=== PATIENT | male | born 1955 | race Caucasian/White ===

== ENCOUNTER 2017-09-02 11:39 | Inpatient (IN) | payer OTHER ==
--- NOTE | 2017-09-02 12:39 | EDPHY ---
General Narrative: CHIEF COMPLAINT: Right hip pain, fall HISTORY OF PRESENT ILLNESS: Patient complains of pain in the right hip and groin. He states that he slipped and fell 5 days ago while in [place]. This was walking from 1 room to another with a step that he did not see. He landed directly on the right hip. Did not strike his head. Did not lose consciousness. His only complaint is right hip and groin pain. It has been constant. It is moderate to severe. Minimal at rest. Severe when he attempts to bear weight. He was seen there by a physician with no imaging performed. He was prescribed tramadol. This minimally helps his pain. He has no chest, back, abdominal or other extremity injuries. No previous orthopedic surgeries. No coronary artery disease, hypertension or diabetes. He does not take any daily medications. No other associated complaints or modifying factors. ESTABLISHED ORTHOPEDIST: None REVIEW OF SYSTEMS: Ten systems reviewed and are negative unless otherwise noted in the HPI PAST MEDICAL HISTORY: None PAST SURGICAL HISTORY: None SOCIAL HISTORY: Nonsmoker. Lives and works here independently. FAMILY HISTORY: Noncontributory EXAMINATION General Appearance: Alert, no distress HEENT: Normocephalic and atraumatic. Pupils equal round reactive Cardiovascular: Symmetric DP and PT pulses 2+. Brisk cap refill Neurological: A&O, sensory intact to the anterior thighs and dorsum of the feet symmetrically. Strength of the knees and ankles symmetric at 5/5. No foot drop on the right lower extremity. Skin: Warm and dry, no rash. No petechiae purpura. No laceration or puncture. Extremities: Tenderness of the right greater trochanter and inguinal canal. No tenderness of the right femur, knee or ankle. Range of motion of the right ankle is intact range of motion of the right hip not tested due to known fracture on x-ray. Neurovascular intact distal to the area of pain Psychiatric: Mood and affect normal DIFFERENTIAL DIAGNOSES: Including but not limited to fracture, dislocation, fracture dislocation, strain , sprain MDM: 12:35 p.m. Right subcapital from oral hip fracture that occurred 5 days ago while in [place]. The patient has been minimally ambulatory on this. He has significant pain but is neurovascular intact distally. There is some shortening and internal rotation. I have his Orthopedics to discuss. I have ordered laboratory studies and chest x-ray preoperative fashion. He is in no acute distress. He is NPO of solids as of 7:00 a.m.. He did have small amount of water 1 hr ago. Keep NPO status. Patient informed of this. 1:00 p.m. I have not yet been able to discuss with orthopedist. I have discussed with the hospitalist Dana Mac. The patient will admitted to Dr. Lucero. He is admitted in stable condition. I will follow up with orthopedist 1:10 p.m. Case discussed with orthopedic PA Nikki Paris. She is working with Dr. Oliveros. They will see the patient in the emergency department for consultation. 1:40 p.m. Patient re-evaluated. Still awaiting orthopedic consultation. His pain is increasing. I have ordered pain medication IV. Patient was sipping on water. I informed him again that he has not be eating or drinking anything. 2:20 p.m. Notified by Bree VELASCO. Patient is still complaining of pain. The morphine did not help. He will receive 1 mg of IV Dilaudid 2:40 p.m. Patient's pain is improving. 3:[address] Oliveros is at bedside with the patient 3:45 p.m. Patient has been evaluated by Orthopedics. Dr. Oliveros will be discussing with Dr. Faulkner to perform the surgery. Surgery is pending later this evening or 1st thing tomorrow. They will notify nursing staff of this. He requested the patient be kept NPO until further notice. SUPERVISION: Patient was independently examined, but I discussed the case with my secondary supervising physician Dr. Pham - Diagnostics Imaging Results: Imaging Impressions Hip X-Ray 09/02/17 11:55 Impression: Right femoral neck fracture with varus angulation. Chest X-Ray 09/02/17 12:34 Impression: No acute findings in the chest. - History Smoking Status: Never smoked - Objective Vital Signs: Initial Vital Signs Temperature (C) 98.2 F 09/02/17 11:42 Heart Rate 84 09/02/17 11:42 Respiratory Rate 16 09/02/17 11:42 Blood Pressure 118/77 09/02/17 11:42 O2 Sat (%) 97 09/02/17 11:42 O2 Delivery Mode Room Air Allergies/Adverse Reactions: No Known Allergies Allergy (Unverified 04/15/16 22:51) Home Medications: Medication Instructions Recorded traMADol [Ultram 50 mg (*)] 50 mg PO Q4HRS PRN 09/02/17 Laboratory Results: Laboratory Results 09/02/17 12:30 09/02/17 12:30 09/02/17 09/02/17 09/02/17 12:47 12:30 12:30 WBC 7.37 10^3/uL 10^3/uL (3.80-9.50) RBC 5.00 10^6/uL 10^6/uL (4.40-6.38) Hgb 15.3 g/dL g/dL (13.7-17.5) Hct 43.9 % % (40.0-51.0) MCV 87.8 fL fL (81.5-99.8) MCH 30.6 pg pg (27.9-34.1) MCHC 34.9 g/dL g/dL (32.4-36.7) RDW 11.8 % % (11.5-15.2) Plt Count 216 10^3/uL 10^3/uL (150-400) MPV 9.7 fL fL (8.7-11.7) Neut % (Auto) 79.4 % H % (39.3-74.2) Lymph % (Auto) 12.3 % L % (15.0-45.0) Gaines % (Auto) 7.5 % % (4.5-13.0) Eos % (Auto) 0.1 % L % (0.6-7.6) Baso % (Auto) 0.4 % % (0.3-1.7) Nucleat RBC Rel Count 0.0 % % (0.0-0.2) Absolute Neuts (auto) 5.85 10^3/uL 10^3/uL (1.70-6.50) Absolute Lymphs (auto) 0.91 10^3/uL L 10^3/uL (1.00-3.00) Absolute Monos (auto) 0.55 10^3/uL 10^3/uL (0.30-0.80) Absolute Eos (auto) 0.01 10^3/uL L 10^3/uL (0.03-0.40) Absolute Basos (auto) 0.03 10^3/uL 10^3/uL (0.02-0.10) Absolute Nucleated RBC 0.00 10^3/uL 10^3/uL (0-0.01) Immature Gran % 0.3 % % (0.0-1.1) Immature Gran # 0.02 10^3/uL 10^3/uL (0.00-0.10) PT 13.4 SEC SEC (12.0-15.0) INR 1.00 (0.83-1.16) APTT 28.6 SEC SEC (23.0-38.0) Sodium Potassium Chloride Carbon Dioxide Anion Gap BUN Creatinine Estimated GFR Glucose Calcium Patient ABO/Rh A POSITIVE 09/02/17 12:30 WBC RBC Hgb Hct MCV MCH MCHC RDW Plt Count MPV Neut % (Auto) Lymph % (Auto) Gaines % (Auto) Eos % (Auto) Baso % (Auto) Nucleat RBC Rel Count Absolute Neuts (auto) Absolute Lymphs (auto) Absolute Monos (auto) Absolute Eos (auto) Absolute Basos (auto) Absolute Nucleated RBC Immature Gran % Immature Gran # PT INR APTT Sodium 138 mEq/L mEq/L (135-145) Potassium 4.2 mEq/L mEq/L (3.5-5.2) Chloride 100 mEq/L mEq/L (97-110) Carbon Dioxide 26 mEq/l mEq/l (22-31) Anion Gap 12 mEq/L mEq/L (8-16) BUN 12 mg/dL mg/dL (7-23) Creatinine 0.8 mg/dL mg/dL (0.7-1.3) Estimated GFR > 60 Glucose 101 mg/dL H mg/dL (70-100) Calcium 9.1 mg/dL mg/dL (8.5-10.4) Patient ABO/Rh Medications Given: Discontinued Medications Hydromorphone HCl (Dilaudid) 1 mg IVP EDNOW ONE Stop: 09/02/17 14:26 Last Admin: 09/02/17 14:36 Dose: 1 mg Morphine Sulfate (Morphine) 4 mg IVP EDNOW ONE Stop: 09/02/17 13:49 Last Admin: 09/02/17 14:01 Dose: 4 mg Ondansetron HCl (Zofran) 4 mg IVP EDNOW ONE Stop: 09/02/17 13:49 Last Admin: 09/02/17 14:01 Dose: 4 mg Departure - Departure Disposition: [facility] Acute Clinical Impression: Fracture of femoral neck, right, closed Qualifiers: Encounter type: initial encounter Qualified Code(s): S72.001A - Fracture of unspecified part of neck of right femur, initial encounter for closed fracture Condition: Good
[2017-09-02 12:54] LABS: PLATELET COUNT 216 10^3/uL (150-400)
[2017-09-02 13:16] LABS: PROTIME(PATIENT) 13.4 SEC (12.0-15.0)
[2017-09-02] MEDS ORDERED: ONDANSETRON 4 MG/2 ML VIAL IVP ONE (13:48)
[2017-09-02] MEDS ORDERED: ONDANSETRON DISINTEGRATING 4 MG TAB PO PRN (14:20)
[2017-09-02] MEDS ORDERED: ACETAMINOPHEN 325 MG TAB PO PRN (14:20)
[2017-09-02] MEDS ORDERED: ONDANSETRON 4 MG/2 ML VIAL IVP PRN (14:20)
[2017-09-02] MEDS ORDERED: HYDROmorphONE/DILAUDID 1 MG/ML INJ IVP ONE (14:25)
[2017-09-02] MEDS ORDERED: DIAZEPAM 10 MG/2 ML SYR IVP PRN (15:07)
--- NOTE | 2017-09-02 15:37 | GHP ---
[f rep st] HISTORY AND PHYSICAL DATE OF ADMISSION: 09/02/2017 CHIEF COMPLAINT: Right hip pain. HISTORY OF PRESENT ILLNESS: A 62-year-old male with no significant past medical history who presents after a mechanical fall on a marble floor down a couple of stairs. Patient lost his footing and fel l sideways onto his right hip, had immediate pain that was severe enough he could not bear weight. Ra ther than presenting, patient obtained a set of crutches and ambulated over the course of the next 5 days with crutches, noticing that the pain was not improving and his ability to bear weight was not i mproving. Therefore, presented to the emergency department. In the ED denies any subjective fevers, chills. Denies chest pain, shortness of breath, dizziness, h eadache, vision changes, dysphagia, nausea, vomiting, abdominal discomfort, dysuria, hematuria, or lo wer extremity edema. PAST MEDICAL HISTORY: Insomnia. p.r.n. Ambien as an outpatient. SOCIAL HISTORY: Negative for tobacco. Occasional alcohol. No illicit drugs or marijuana. FAMILY HISTORY: Negative for heart disease. ADVANCED DIRECTIVES: Patient is a full COR, full tube. His would be his medical decision maker . REVIEW OF SYSTEMS: A 10-point review of systems is negative with the exception of that reported in t he HPI. PHYSICAL EXAMINATION: VITAL SIGNS: Blood pressure is 118/77, heart rate 84, respiratory rate 16, sa turating 97% on room air, 36.8. GENERAL: This is a healthy-appearing male in no acute distress. HE ENT: Exam is notable for dry mucous membranes. Eye exam is negative for any icterus. CARDIAC: Pat ient has regular rate and rhythm. PULMONARY: Clear to auscultation bilaterally. GASTROINTESTINAL: Positive bowel sounds. ABDOMEN: Soft and nontender in all 4 quadrants. MUSCULOSKELETAL: Is negat ruben for any lower extremity edema. SKIN: Exam is negative for any rashes. NEUROLOGIC: He is alert and oriented x3. PSYCHIATRIC: He is pleasant and cooperative on interview and examination. DATA: X-ray of the hip, which I personally reviewed and interpreted, shows a right femoral neck frac ture. LABORATORY: White count 7.3, hematocrit 43.9, platelets 216. Creatinine 0.8. ASSESSMENT AND PLAN: This is a 62-year-old male presenting after a mechanical fall with right hip pa in. 1. Acute right femoral neck fracture. The patient experienced a fall approximately 5 days ago. I vernon garcia treated the patient with IV pain medications. Will keep n.p.o. until orthopedic evaluation. Una roberts there will be intraoperative fixation today, will hold on Lovenox prophylaxis as well. The truman ent had a bad experience with IV morphine. Will use IV Dilaudid and p.r.n. IV Valium for muscle spas m. 2. Diet. N.p.o. for the operating room. 3. Prophylaxis holding until postoperative, place SCDs. DISPOSITION: I expect greater than 2 midnights as the patient requires orthopedic evaluation, intrao perative fixation and recovery time. I have discussed the case with the emergency room physician. Zehra felton will be triaged to the medical-surgical floor for care. /[id number]/MODL
[2017-09-02] MEDS ORDERED: NS 1,000 ML IV ONE (15:44)
--- NOTE | 2017-09-02 17:08 | SOAPPROG ---
SOAP Progress Note Assessment/Plan: Assessment: 5 day old Garden III R femoral neck fracture in active 62 yo M. Plan: Recommend ALEXIS. My partner, Marshall Faulkner MD will proceed with this surgery tomorrow. NPO p MN, reg diet now. TEDs/SCDs. Bedrest o/n, position of comfort, NWB RLE. PO analgesics, ice prn. Appreciate med consult assistance. See full dictated consult by ARLEY Villalta. 09/02/17 17:11 09/02/17 17:16 Subjective: Mechanical fall [address] [facility]. Unable to bear wt on RLE. No antecedent hip problems in active 62 yo M. Objective: Vital Signs Temp Pulse Resp BP Pulse Ox 36.8 C 81 18 122/74 H 97 09/02/17 11:42 09/02/17 16:00 09/02/17 16:00 09/02/17 16:00 09/02/17 16:00 09/01/17 09/02/17 09/03/17 05:59 05:59 05:59 Intake Total 1000 Balance 1000 PT 13.4 SEC (12.0-15.0) 09/02/17 12:30 INR 1.00 (0.83-1.16) 09/02/17 12:30 Shortened ER RLE. TTP R hip. Comp's soft. DNVI BLEs. Neg Temo's no calf TTP or edema. XR: Garden III R femoral neck fracture. ICD10 Worksheet Patient Problems: Problems Problem Status Onset Fracture of femoral neck, right, closed Acute
[2017-09-02] MEDS: HYDROCODONE/APAP 5/325 TAB PO PRN ×2 (17:15→21:20)
[2017-09-02] MEDS: NS 1,000 ML IV SCH ×2 (17:16→23:50)
[2017-09-02] MEDS ORDERED: ZOLPIDEM TARTRATE 5 MG TAB PO ONE (20:52)
--- NOTE | 2017-09-02 22:03 | GCON ---
[f rep st] CONSULTATION PREOPERATIVE HISTORY AND PHYSICAL AND ORTHOPEDIC CONSULT REPORT DATE OF CONSULTATION: 09/02/2017 CHIEF COMPLAINT: This 62-year-old male presented to the emergency department today with reports of right hip pain. The patient states that he was in [facility] 5 days ago when he fell down 2 steps sideways. He landed directly on the right hip with all of his weight. He was seen by the [facility] doctor at the time, who did not have any access to x-rays. Therefore, none were taken. The patient was in a wheelchair from the incident in [place] until he returned home. Since then, has been using crutches and has been nonweightbearing as any weight on the right leg has been too painful. He has been using Ultram, which was provided by the [facility] doctor, to manage his pain, but states that it really has not been helping that much. He has taken a couple of doses of anti-inflammatories here and there since he returned home as well. Since returning home, the patient has not been active and has been lying in bed, hoping the pain would improve. When it became clear that it was not, he presented to the emergency department today. The patient denies any previous injuries or pain to the right hip. He generally is quite active, working out at the gym, lifting weights, yoga classes and skiing. He has not been as active recently, but typically is and would like to get back to his usual activities. He denies any other injuries as a result of the fall. He does have a history of what he believes to be disc herniation at L5-S1 which is causing him minor pain at this time, but not significant. The patient denies any neck pain, head injury, upper extremity injury. He does complain of occasional numbness in the right small finger upon awakening, which improves and resolves throughout the day. He does not have any numbness or tingling in the lower extremities, no loss of bowel or bladder control. He denies abdominal pain, nausea, vomiting, diarrhea. He has not had any chest pain or shortness of breath. PAST MEDICAL HISTORY: The patient states that he is otherwise healthy. His mentioned that in the early , he had 2 episodes upon which he passed out and was thoroughly worked up by a labor relations director. No arrhythmia or heart issues were found. No history of seizures. The cause of these 2 episodes of syncope were not uncovered. The patient has not had any further episodes that are similar since that initial time. PAST SURGICAL HISTORY: The patient has a history of a deviated septum and has had nasal surgery years ago. He also had a hemorrhoid surgery 4 years ago. L forearm melanoma resection 20 yrs ago. He denies any other surgical history. MEDICATIONS: None. He does not take any [id number] supplements or vitamins. ALLERGIES: NKDA. SOCIAL HISTORY: He is and lives at home with his family in [place]. 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 However, currently is not working. The patient is a nonsmoker. FAMILY HISTORY: Father asthma, of iatrogenic overdose with morphine in doctor's office, by report. No other known history. REVIEW OF SYSTEMS: H/o melanoma, now in remission. 10-pt review performed, otherwise negative except as mentioned above without any other complaints, concerns or history. PHYSICAL EXAMINATION: GENERAL: The patient is alert, cooperative, resting comfortably in no acute distress. VITAL SIGNS: Stable. HEENT: The patient's head is atraumatic and normocephalic. Extraocular movements are intact. Nares are patent. Hearing is grossly normal. Oral mucosa are slightly dry. NECK: The patient moves the neck in all directions with a normal range of motion and no pain. He has no cervical spinous tenderness, deformities or step-offs. Lhermitte test is negative. CARDIOVASCULAR: Patient has regular S1, S2 with no murmur, rubs, or gallops. Distally, he has intact and equal DP and PT pulses with brisk capillary refill. No lower extremity edema. Upper extremity pulses are equal and brisk. Capillary refill is brisk to all digits as well. NEUROLOGICAL: Patient is alert and oriented. He has equal sensation to light touch in both lower extremities. He can wiggle all toes. Strength is 5/5 at the EHL as well as dorsiflexion, plantar flexion. Strength of the hip was not tested due to known fracture. SKIN: Warm and dry with no redness, warmth, rashes, lesions present. Intact. MUSCULOSKELETAL: The patient has no pain with movement of the upper extremities and has full range of motion in all joints in the upper extremities. Lower extremities reveal his right hip to be slightly externally rotated with RLE shortening. No ecchymosis, erythema, calor , edema or contusion or deformities are seen or palpated around the hip. His thighs and calves are soft with no tenderness, redness, warmth or pain upon palpation. DNVI BLE's. No calf TTP, edema, neg Temo's BLEs. PSYCHIATRIC: Patient answers questions appropriately with a normal mood and affect. A+Ox3. DIAGNOSTIC DATA: X-rays of the right hip were reviewed, which do show a subcapital fracture at the right femoral neck with displacement, Garden III. IMPRESSION: Right hip femoral neck fracture, Garden III and displaced, 5 days delayed-presentation. PLAN: The patient was seen in the emergency department by me and by Dr Oliveros , independently, where the history/physical information and orthopedic consult were completed. In the meantime, the patient should remain n.p.o. until surgical plan defined by Dr Oliveros. Upon further questioning, the patient states that he actually did have a smoothie consisting of fruit, almond butter and almond milk around 10 o'clock this morning and a glass of water around 11 o' clock or possibly noon. The patient was advised about the importance of staying n.p.o. from now on. Bedrest, NWB RLE, position of comfort. TEDs/SCDs. Avoid NSAIDs. PO analgesics prn with IVs prn BTP. ALEXIS with Dr Faulkner tomorrow. All questions answered, and they are very happy with the care received. /[id number]/MODL MTDD
[2017-09-02] MEDS ORDERED: ZOLPIDEM TARTRATE 5 MG TAB ONE (23:46)
[2017-09-02] MEDS: HYDROmorphONE/DILAUDID 1 MG/ML INJ IVP PRN (23:50)
[2017-09-03] MEDS: HYDROCODONE/APAP 5/325 TAB PO PRN ×3 (01:17→19:33)
[2017-09-03] MEDS: HYDROmorphONE/DILAUDID 1 MG/ML INJ IVP PRN ×13 (03:05→19:50)
[2017-09-03 05:19] LABS: PLATELET COUNT 212 10^3/uL (150-400)
[2017-09-03] MEDS ORDERED: oxyCODONE IR 5 MG TAB PO PRN (09:59)
--- NOTE | 2017-09-03 10:22 | SOAPPROG ---
SOAP Progress Note Assessment/Plan: Assessment/Plan: Garden III Right femoral neck fracture in an active 62 yo male. Plan is to go to OR with Dr. Faulkner at 2:30 this afternoon for R ALEIXS. Keep pt. NPO -continue BETTINA's/SCD's -position of comfort -NWB RLE -continue po analgesics, switched to oxycodone when needed for Tylenol dose is not exceeded. Subjective: States that pain is still not well controlled with current po pain meds. Pt. has had no N/T of BLE, no calf pain, swelling, redness, warmth. Pt. has had no fevers. Objective:Pt. resting comfortably, sitting up in bed, in NAD. Alert and oriented, in NAD. Pt. has equal and brisk pulses in BLE. No calf pain, swelling, redness, warmth bilaterally. Moves all toes without difficulty. Respirations easy and unlabored. Plan: 09/03/17 10:17 Objective: Vital Signs Temp Pulse Resp BP Pulse Ox 36.8 C 59 L 16 122/87 H 92 09/03/17 07:17 09/03/17 07:17 09/03/17 07:17 09/03/17 07:17 09/03/17 07:17 Laboratory Results 09/03/17 04:47 09/03/17 04:47 09/02/17 09/03/17 09/04/17 05:59 05:59 05:59 Intake Total 2950 Output Total 1350 Balance 1600 PT 13.4 SEC (12.0-15.0) 09/02/17 12:30 INR 1.00 (0.83-1.16) 09/02/17 12:30 ICD10 Worksheet Patient Problems: Problems Problem Status Onset Fracture of femoral neck, right, closed Acute
[2017-09-03] MEDS ORDERED: ceFAZolin 1 GM VIAL ONE ×2 (13:45→13:47)
[2017-09-03] MEDS ORDERED: ceFAZolin 1 GM/5 ML SYR ONE (13:50)
[2017-09-03] MEDS ORDERED: HYDROmorphONE/DILAUDID 1 MG/ML INJ ONE ×3 (14:05→19:19)
[2017-09-03] MEDS ORDERED: MIDAZOLAM 2 MG/2 ML VIAL IVP ONE (14:12)
--- NOTE | 2017-09-03 14:12 | PDANEPAE ---
ANE History of Present Illness 62 yo M w traumatic R hip fracture here for ORIF ANE Past Medical History - Cardiovascular History Hx Hypertension: No Hx Arrhythmias: No Hx Chest Pain: No Hx Coronary Artery / Peripheral Vascular Disease: No - Pulmonary History Hx COPD: No Hx Asthma/Reactive Airway Disease: No Hx Oxygen in Use at Home: No Hx Sleep Apnea: No Sleep Apnea Screening Result - Last Documented: Positive - Endocrine History Hx Diabetes: No ANE Review of Systems Review of Systems: - Exercise capacity Exercise capacity: >=4 METS ANE Patient History - Allergies Allergies/Adverse Reactions: No Known Allergies Allergy (Verified 09/03/17 13:10) - Home Medications Home Medications: traMADol [Ultram 50 mg (*)] 50 mg PO Q4HRS PRN 09/02/17 [Last Taken 09/02/17] - NPO status NPO Status: no food or drink >8 hours NPO Since - Liquids (Date): 09/02/17 NPO Since - Liquids (Time): 07:30 NPO Since - Solids (Date): 09/02/17 NPO Since - Solids (Time): 07:30 - Anes Hx Anes Hx: no prior problems - Smoking Hx Smoking Status: Never smoked - Alcohol Use Alcohol Use: Occasionally - Family Anes Hx Family Anes Hx: none ANE Labs/Vital Signs - Labs Result Diagrams: 09/03/17 04:47 09/03/17 04:47 - Vital Signs Blood Pressure: 122/87 Heart Rate: 59 Respiratory Rate: 16 O2 Sat (%): 96 Height: 182.88 cm Weight: 81.647 kg ANE Physical Exam - Airway Neck exam: FROM Mallampati Score: Class 2 Mouth exam: normal dental/mouth exam - Pulmonary Pulmonary: no respiratory distress, clear to auscultation - Cardiovascular Cardiovascular: regular rate and rhythym, no murmur, rub, or gallop - ASA Status ASA Status: I ANE Anesthesia Plan Anesthesia Plan: general endotracheal anesthesia
[2017-09-03] MEDS ORDERED: fentaNYL 100 MCG/2 ML INJ ONE ×4 (14:21→19:19)
[2017-09-03] MEDS ORDERED: PROPOFOL 200 MG/20 ML VIAL ONE (14:21)
[2017-09-03] MEDS ORDERED: LIDOCAINE 2% 100 MG/5 ML SYR ONE (14:22)
[2017-09-03] MEDS ORDERED: ROCURONIUM 50 MG/5 ML VIAL ONE (14:22)
[2017-09-03] MEDS ORDERED: ROPIVACAINE 0.2% 80 MG, EPINEPHrine 0.2 MG, KETOROLAC TROMETHAMINE 30 MG, morphINE 10 M... IU ONE ×2 (14:49→14:58)
[2017-09-03] MEDS ORDERED: ACETAMINOPHEN 325 MG TAB PO ONE (14:58)
[2017-09-03] MEDS ORDERED: TRANEXAMIC ACID 1,000 MG in NS 100 ML IV ONE (14:58)
[2017-09-03] MEDS ORDERED: FAMOTIDINE 20 MG TAB PO ONE (14:58)
[2017-09-03] MEDS ORDERED: ceFAZolin 2 GM/SWFI 2 GM/20 ML SYR IVP ONE (14:58)
[2017-09-03] MEDS ORDERED: DEXAMETHASONE 4 MG/ML VIAL IVP ONE (14:58)
--- NOTE | 2017-09-03 15:15 | ASMTCMCOM ---
CM Note CM Note Notes: Pt to OR today for hip fx after a fall. Pt independent w all ADLs/IADLs at baseline. Will need to assess needs after surgery and no therapies ordered at this time. Pt may need HHC. CM to follow. Date Signed: 09/03/2017 03:14 PM Electronically Signed By:HITESH Blake
--- NOTE | 2017-09-03 15:19 | HOSPPROG ---
Hospitalist Progress Note Assessment/Plan: 62y male with c/o hip pain. First encounter, chart reviewed. #Hip fx to OR today #Pain controlled #Dispo unclear await surgery PT/OT sergio PFEIFFER Cm Subjective: Still having some pain. Waiting for surgery. Objective: Vital Signs Temp Pulse Resp BP Pulse Ox 37.2 C 59 L 16 122/87 H 96 09/03/17 13:10 09/03/17 14:12 09/03/17 14:12 09/03/17 14:12 09/03/17 14:12 Laboratory Results 09/03/17 04:47 09/03/17 04:47 09/02/17 09/03/17 09/04/17 05:59 05:59 05:59 Intake Total 2950 Output Total 1350 500 Balance 1600 -500 PT 13.4 SEC (12.0-15.0) 09/02/17 12:30 INR 1.00 (0.83-1.16) 09/02/17 12:30 - Physical Exam Constitutional: no apparent distress, appears nourished, uncomfortable Eyes: PERRL, anicteric sclera, EOMI Ears, Nose, Mouth, Throat: moist mucous membranes, hearing normal, ears appear normal Cardiovascular: No JVD, No tachycardia, No edema Respiratory: no respiratory distress, no rales or rhonchi, reduced air movement Gastrointestinal: normoactive bowel sounds, No tenderness, No ascites Skin: warm, normal color, No erythema Musculoskeletal: pain with ROM, abnormal gait, generalized weakness Neurologic: AAOx3 Psychiatric: interacting appropriately, not anxious, not encephalopathic, thought process linear ICD10 Worksheet Patient Problems: Problems Problem Status Onset Fracture of femoral neck, right, closed Acute
[2017-09-03] MEDS ORDERED: HYDROmorphONE/DILAUDID 2 MG/ML INJ ONE (15:40)
[2017-09-03] MEDS ORDERED: ONDANSETRON 4 MG/2 ML VIAL IVP PRN ×2 (16:34→17:32)
[2017-09-03] MEDS ORDERED: PROMETHAZINE HCL 25 MG/ML INJ IVP PRN ×2 (16:34→17:32)
[2017-09-03] MEDS ORDERED: NALOXONE HCL 0.4 MG/ML INJ IVP PRN ×2 (16:34→19:57)
[2017-09-03] MEDS ORDERED: DIPHENOXYLATE/ATROPINE LOMOTIL 1 TAB PO PRN (17:32)
[2017-09-03] MEDS ORDERED: BISACODYL 10 MG SUPP PR PRN (17:32)
[2017-09-03] MEDS ORDERED: POLYETHYLENE GLYCOL 3350 17 GM PKT PO PRN (17:32)
[2017-09-03] MEDS ORDERED: LACTULOSE 20 GM/30 ML UDCUP PO PRN (17:32)
[2017-09-03] MEDS ORDERED: diphenhydrAMINE 25 MG CAP PO PRN (17:32)
[2017-09-03] MEDS ORDERED: ONDANSETRON DISINTEGRATING 4 MG TAB PO PRN (17:32)
[2017-09-03] MEDS ORDERED: MAGNESIUM HYDROXIDE 30 ML UDCUP PO PRN (17:32)
[2017-09-03] MEDS ORDERED: METOCLOPRAMIDE 10 MG/2 ML VIAL IVP PRN (17:32)
--- NOTE | 2017-09-03 17:34 | POSTANESTH ---
Post Anesthetic Evaluation Cardiovascular Status: Normal, Stable, Similar to Pre-Op Cond Respiratory Status: Normal, Stable, Similar to Pre-op Cond. Level of Consciousness/Mental Status: Can Participate in Eval, Alert and Oriented Pain Control: Adequate, Prn Tx Ordered Nausea/Vomiting Control: Adequate, Prn Tx Ordered Complications Possibly Related to Anesthesia: None Noted
[2017-09-03] MEDS: fentaNYL 100 MCG/2 ML INJ IVP PRN ×4 (17:39→19:21)
--- NOTE | 2017-09-03 17:51 | POSTOPPROG ---
Post Op Note Date of Operation: 09/03/17 Surgeon: Gavin Faulkner Commercial Analyst: Nikki Paris PA-C Anesthesia: GET(General Endotracheal) Pre-op Diagnosis: Right hip femoral neck fracture/Right ALEXIS Post-op Diagnosis: Right Hip ALEXIS Indication: Right hip femoral neck fracture Procedure: Right hip Total Arthroplasty Inf/Abcess present in the surg proc area at time of surgery?: No Depth: Deep Incisional (Fascial) EBL: 100-500 Specimen(s): Femoral Head sent to pathology to rule out pathological fracture
[2017-09-03] MEDS ORDERED: LR 1,000 ML IV SCH (18:00)
[2017-09-03] MEDS ORDERED: DIAZEPAM 10 MG/2 ML SYR ONE (18:56)
[2017-09-03] MEDS ORDERED: HYDROCODONE/APAP 5/325 TAB ONE (19:31)
[2017-09-03] MEDS ORDERED: HYDROmorphONE/DILAUDID 6 MG/30 ML PCA IV PRN (19:57)
[2017-09-03] MEDS: ACETAMINOPHEN 325 MG TAB PO SCH ×2 (20:35→23:50)
[2017-09-03] MEDS: FAMOTIDINE 20 MG TAB PO SCH (21:26)
[2017-09-03] MEDS: oxyCODONE IR 5 MG TAB PO PRN (21:26)
[2017-09-03] MEDS: SENNOSIDES/DOCUSATE SODIUM TAB PO SCH (21:26)
[2017-09-03] MEDS: ceFAZolin 2 GM/SWFI 2 GM/20 ML SYR IVP SCH (21:27)
[2017-09-03 21:57] LABS: INR 1.1 (0.83-1.16); PROTIME(PATIENT) 14.4 SEC (12.0-15.0)
[2017-09-03] MEDS ORDERED: ceFAZolin 2 GM/DEXTROSE 100 ML IV SCH (22:00)
[2017-09-03] MEDS: traMADol 50 MG TAB PO PRN (22:40)
[2017-09-04] MEDS: oxyCODONE IR 5 MG TAB PO PRN ×4 (00:31→11:13)
[2017-09-04] MEDS: ACETAMINOPHEN 325 MG TAB PO SCH ×5 (05:32→23:51)
[2017-09-04] MEDS: traMADol 50 MG TAB PO PRN ×3 (05:32→20:58)
[2017-09-04] MEDS: ceFAZolin 2 GM/SWFI 2 GM/20 ML SYR IVP SCH (05:33)
--- NOTE | 2017-09-04 07:49 | GOP ---
[f rep st] OPERATIVE REPORT DATE OF OPERATION: 09/03/2017 SURGEON: Gavin Faulkner MD TRACTOR TECHNICIAN: Nikki Paris PA-C. ANESTHESIA: General. PREOPERATIVE DIAGNOSIS: Right femoral neck fracture, Garden III. POSTOPERATIVE DIAGNOSIS: Right femoral neck fracture, Garden III. PROCEDURE PERFORMED: Right total hip arthroplasty. FINDINGS: DESCRIPTION OF PROCEDURE: Patient taken the operating room, administered general anesthesia, placed in the left lateral decubitus position. Had his right hip and lower extremity prepped and draped in n ormal sterile fashion. A posterolateral incision was made through dermal subcutaneous tissues. Sharp dissection performed down to the IT band. This was split longitudinally, extended up over the greater trochanter into the gluteal fascia. Charnley retractors put in position. The hip was internally rota rogelio, bringing the external rotators under tension. The piriformis was taken down with a cautery and t agged with #2 Ethibond suture. Posterior capsule was incised. The hip fracture was inspected. The head was rotated into position and subsequently dislocated. The n shruthi segment was then freshened up with a new cut approximately a centimeter above the lesser trochant er. The acetabulum was then exposed. Retractors were placed. The tissue was removed from the cotyloid notch. The labral tissue was excised. Reaming commenced with a size 49 and extended up to a size 58, initially in 2 mm increments, last in 1 mm increment. The trial cup was put in position with a trial liner. The box osteotome was then used to remove bone from the greater trochanteric region after exp osing the proximal femur. Starting reamer was placed down through the femoral canal manually. Motoriz ed reaming commenced with a size 7 and extended up to a size 12. The broaching began with a size 8 an d extended up to a size 12. The 12 seemed to fit appropriately. Intraoperative films were taken with a standard neck length after reducing the head and neck segment. We felt we had appropriate leg lengt hs. The hip was then re-dislocated. The trials were brought out. Thorough lavage performed of all surface s. The cocktail solution was infiltrated deeply. The real cup was impacted into position, followed by the real liner. The real stem was impacted into position, followed by drying of the trunnion and imp acting the Biolox ceramic head. Implants utilized were the Tritanium 58 mm Alpha Code F acetabular sh [facility]. The Trident X3 0-degree polyethylene insert, 36 mm inner diameter, Alpha Code F. The Biolox Delt a ceramic C taper femoral head, 0 neck length. The Secure Fit Max 132 degree neck angle hip stem, siz e 12, C taper trunnion, 40 mm neck length. A drain was placed deeply. The external rotators were repaired back down to drill holes in the greate r trochanter after repairing the capsule. Both these layers were closed with a #2 Ethibond suture. Th e IT band was closed with [id number] #1 Vicryl suture followed by closure of subcutaneous tissue with 2-0 Vicryl suture, followed by closure of the dermis with lorene. Sterile compression dressing applied. The patient had abduction pillow placed. He tolerated the procedure well, and was transferr ed back to recovery in stable condition. No operative complications. SECOND ASSIST: LILLIE Gaspar. COMPLICATIONS: None /[id number]/MODL
[2017-09-04] MEDS: SENNOSIDES/DOCUSATE SODIUM TAB PO SCH ×2 (07:54→21:00)
[2017-09-04] MEDS: FAMOTIDINE 20 MG TAB PO SCH ×2 (07:54→21:00)
[2017-09-04] MEDS: KETOROLAC 30 MG/1 ML SDV IVP PRN ×3 (11:56→23:52)
[2017-09-04] MEDS: DIAZEPAM 2 MG TAB PO PRN ×2 (11:56→23:51)
[2017-09-04] MEDS ORDERED: METHOCARBAMOL 500 MG TAB PO ONE (12:17)
--- NOTE | 2017-09-04 14:02 | HOSPPROG ---
Hospitalist Progress Note Assessment/Plan: 62y male with c/o hip pain. #Hip fx POD #1 RTHA #Pain not controlled change pain meds add robaxin for spasm #Dispo unclear PT/OT eval say [facility] CM Subjective: Having significant pain. Feels overwhelmed. Objective: Vital Signs Temp Pulse Resp BP Pulse Ox 36.7 C 68 16 128/90 H 100 09/04/17 11:39 09/04/17 11:39 09/04/17 11:39 09/04/17 11:39 09/04/17 11:39 Laboratory Results 09/04/17 04:31 09/03/17 04:47 09/03/17 09/04/17 09/05/17 05:59 05:59 05:59 Intake Total 2950 3801 500 Output Total 1350 1685 700 Balance 1600 2116 -200 PT 14.4 SEC (12.0-15.0) 09/03/17 21:30 INR 1.10 (0.83-1.16) 09/03/17 21:30 - Physical Exam Constitutional: appears nourished, uncomfortable, No chronically ill appearing Eyes: PERRL, anicteric sclera, EOMI Ears, Nose, Mouth, Throat: moist mucous membranes, hearing normal, ears appear normal Cardiovascular: regular rate and rhythym, No JVD, No edema Respiratory: no respiratory distress, no rales or rhonchi, reduced air movement Gastrointestinal: normoactive bowel sounds, No tenderness, No ascites Skin: warm, normal color, No erythema Musculoskeletal: pain with ROM, muscular tenderness, generalized weakness Neurologic: AAOx3 Psychiatric: interacting appropriately, not anxious, not encephalopathic, thought process linear ICD10 Worksheet Patient Problems: Problems Problem Status Onset Fracture of femoral neck, right, closed Acute
[2017-09-04] MEDS: oxyCODONE IR 5 MG TAB PO SCH ×4 (15:19→22:04)
[2017-09-04] MEDS: METHOCARBAMOL 500 MG TAB PO SCH ×2 (15:50→21:00)
[2017-09-04] MEDS: WARFARIN SODIUM 5 MG TAB PO SCH (15:57)
--- NOTE | 2017-09-04 16:02 | SOAPPROG ---
SOAP Progress Note Assessment/Plan: Assessment/Plan: R hip femoral neck fracture s/p R ALEXIS POD#1 - Continue pain management, encourage PO - Posterior hip precautions with abduction pillow - PT/OT - Partial WB RLE, 50# maximum - Ice to the R hip - Dressing change and drain removal tomorrow - Warfarin for VTE chemoprophylaxis - SCDs/TEDs for mechanical prophylaxis - Discharge planning 09/04/17 16:00 09/04/17 16:02 09/04/17 16:34 Subjective: Pt states he is ambulating well, but pain increased after PT today. Pt denies fever, chills, chest pain, SOB, abdominal pain, N/V/D, numbness, tingling and calf pain. Objective: Vital Signs Temp Pulse Resp BP Pulse Ox 36.9 C 77 16 139/98 H 94 09/04/17 15:51 09/04/17 15:51 09/04/17 15:51 09/04/17 15:51 09/04/17 15:51 Laboratory Results 09/04/17 04:31 09/03/17 04:47 09/03/17 09/04/17 09/05/17 05:59 05:59 05:59 Intake Total 2950 3801 1400 Output Total 1350 1685 700 Balance 1600 2116 700 PT 14.4 SEC (12.0-15.0) 09/03/17 21:30 INR 1.10 (0.83-1.16) 09/03/17 21:30 Physical Exam - Physical Exam General Appearance: alert, no apparent distress Cardiac/Chest: normal peripheral pulses Skin: normal color, warm/dry, other (dressing c/d/i without surrounding erythema or calor) Extremities: normal inspection, normal capillary refill, swelling (localized to R hip), other (Drain intact R hip), No pedal edema, No calf tenderness, No Temo 's sign Neuro/Psych: no motor/sensory deficits, alert, normal mood/affect ICD10 Worksheet Patient Problems: Problems Problem Status Onset Fracture of femoral neck, right, closed Acute
[2017-09-04] MEDS: HYDROCODONE/APAP 5/325 TAB PO PRN (17:20)
[2017-09-04] MEDS: TEMAZEPAM 15 MG CAP PO PRN (21:00)
[2017-09-05] MEDS: traMADol 50 MG TAB PO PRN ×4 (03:02→18:28)
[2017-09-05] MEDS: oxyCODONE IR 5 MG TAB PO SCH ×7 (03:03→20:49)
[2017-09-05 05:25] LABS: INR 1.37 (0.83-1.16)
[2017-09-05] MEDS: KETOROLAC 30 MG/1 ML SDV IVP PRN ×3 (05:54→20:43)
[2017-09-05] MEDS: ACETAMINOPHEN 325 MG TAB PO SCH ×3 (05:55→16:52)
[2017-09-05] MEDS: FAMOTIDINE 20 MG TAB PO SCH ×2 (08:20→20:44)
[2017-09-05] MEDS: METHOCARBAMOL 500 MG TAB PO SCH ×3 (08:20→20:44)
--- NOTE | 2017-09-05 09:18 | SOAPPROG ---
SOAP Progress Note Assessment/Plan: Assessment: S/P Right total hip for displaced subcapital femoral neck fx, doing well Plan: Assess on stairs and if doing well can discharge home. Note patient is hesitant to go considering weather 09/05/17 09:15 Subjective: Pain under better control but concerned about being able to maneuver steps. Objective: Vital Signs Temp Pulse Resp BP Pulse Ox 36.6 C 83 16 138/95 H 94 09/05/17 08:00 09/05/17 08:00 09/05/17 08:00 09/05/17 08:00 09/05/17 08:00 Laboratory Results 09/04/17 04:31 09/03/17 04:47 09/04/17 09/05/17 09/06/17 05:59 05:59 05:59 Intake Total 3801 3400 Output Total 1685 1550 200 Balance 2116 1850 -200 PT 17.0 SEC (12.0-15.0) H 09/05/17 04:56 INR 1.37 (0.83-1.16) H 09/05/17 04:56 Incision looks good drrain pulled and new dressing applied ICD10 Worksheet Patient Problems: Problems Problem Status Onset Fracture of femoral neck, right, closed Acute
[2017-09-05] MEDS: SENNOSIDES/DOCUSATE SODIUM TAB PO SCH ×2 (10:06→20:44)
--- NOTE | 2017-09-05 12:18 | HOSPPROG ---
Hospitalist Progress Note Assessment/Plan: 62y male with c/o hip pain. #Hip fx POD #2 RTHA #Pain controlled today robaxin for spasm #Dispo likely home in am with [facility] PT/OT eval say [facility] CM Subjective: Feeling better today. Pain controlled. Objective: Vital Signs Temp Pulse Resp BP Pulse Ox 36.7 C 73 18 138/97 H 92 09/05/17 11:52 09/05/17 11:52 09/05/17 11:52 09/05/17 11:52 09/05/17 11:52 Laboratory Results 09/04/17 04:31 09/03/17 04:47 09/04/17 09/05/17 09/06/17 05:59 05:59 05:59 Intake Total 3801 3400 650 Output Total 1685 1550 925 Balance 2116 1850 -275 PT 17.0 SEC (12.0-15.0) H 09/05/17 04:56 INR 1.37 (0.83-1.16) H 09/05/17 04:56 - Physical Exam Constitutional: no apparent distress, appears nourished Eyes: PERRL, anicteric sclera Ears, Nose, Mouth, Throat: moist mucous membranes, hearing normal Cardiovascular: No JVD, No edema Respiratory: no respiratory distress, reduced air movement Gastrointestinal: No tenderness, No ascites Skin: warm, normal color Musculoskeletal: pain with ROM, generalized weakness Neurologic: AAOx3 Psychiatric: interacting appropriately, not anxious, not encephalopathic ICD10 Worksheet Patient Problems: Problems Problem Status Onset Fracture of femoral neck, right, closed Acute
[2017-09-05] MEDS: WARFARIN SODIUM 5 MG TAB PO SCH (16:53)
[2017-09-05] MEDS: TEMAZEPAM 15 MG CAP PO PRN (20:44)
[2017-09-05] MEDS: DIAZEPAM 2 MG TAB PO PRN (20:44)
[2017-09-06] MEDS: ACETAMINOPHEN 325 MG TAB PO SCH ×3 (00:29→12:27)
[2017-09-06] MEDS: traMADol 50 MG TAB PO PRN ×3 (00:29→12:27)
[2017-09-06] MEDS: oxyCODONE IR 5 MG TAB PO SCH ×5 (01:12→12:29)
[2017-09-06 05:36] LABS: INR 1.88 (0.83-1.16); PROTIME(PATIENT) 21.7 SEC (12.0-15.0)
[2017-09-06 07:32] VITALS: BP 155/105; PULSE 76; RESP 16; TEMP 98.1; O2SAT 95
[2017-09-06] MEDS: SENNOSIDES/DOCUSATE SODIUM TAB PO SCH (07:44)
[2017-09-06] MEDS: METHOCARBAMOL 500 MG TAB PO SCH (07:45)
[2017-09-06] MEDS: FAMOTIDINE 20 MG TAB PO SCH (07:47)
--- NOTE | 2017-09-06 09:57 | SOAPPROG ---
SOAP Progress Note Assessment/Plan: Assessment: status post right hip subcapital femoral neck fracture fixed with a total hip arthroplasty Continue hip precautions with abduction pillow Partial weight bearing on the left lower extremity, 50 pound maximum Continue warfarin daily Physical therapy Keep incision site clean, dry and covered for bathing; no soaking Pain medicine as needed Ortho stable and okay for discharge. Subjective: Patient is status post right total hip arthroplasty for a subcapital femoral neck fracture. He states he is doing well and he has minimal pain. Ortho stable. Objective: Vital Signs Temp Pulse Resp BP Pulse Ox 36.7 C 76 16 155/105 H 95 09/06/17 07:31 09/06/17 07:31 09/06/17 07:31 09/06/17 07:31 09/06/17 07:31 Laboratory Results 09/04/17 04:31 09/03/17 04:47 09/05/17 09/06/17 09/07/17 05:59 05:59 05:59 Intake Total 3400 1150 400 Output Total 1550 1150 Balance 1850 0 400 PT 21.7 SEC (12.0-15.0) H 09/06/17 04:46 INR 1.88 (0.83-1.16) H 09/06/17 04:46 Physical exam of the right hip: incision is healing well, no erythema no active drainage. Dressing clean, dry and intact. Normal sensation to light touch in the RLE. Distal pulse present in the RLE. ICD10 Worksheet Patient Problems: Problems Problem Status Onset Fracture of femoral neck, right, closed Acute
--- NOTE | 2017-09-06 13:26 | PDIAF ---
- Diagnosis Diagnosis: hip fx Code Status: Full Code - Medication Management Discharge Medications: Medications to Continue on Transfer traMADol [Ultram 50 mg (*)] 50 mg PO Q4HRS PRN 09/02/17 [Last Taken 09/02/17] Acetaminophen [Tylenol 325mg (*)] 650 mg PO Q6HRS tab 09/06/17 [Last Taken Unknown] Methocarbamol [Robaxin 500 mg (*)] 1,000 mg PO TID #21 tab 09/06/17 [Last Taken Unknown] Polyethylene Glycol 3350 [Miralax 17 gm (*)] 17 gm PO DAILY PRN pkt 09/06/17 [ Last Taken Unknown] Sennosides/Docusate Sodium [Senokot-S] 1 - 2 tab PO BID tab 09/06/17 [Last Taken Unknown] Warfarin Sodium [Coumadin 5MG (*)] 5 mg PO DAILY AT 4PM #10 tab 09/06/17 [Last Taken Unknown] oxyCODONE IR [Oxycodone Ir (*)] 10 mg PO Q3HRS #40 tab 09/06/17 [Last Taken Unknown] Discharge Medications: Refer to the Discharge Home Medication list for PRN reason. PICC Care - Routine: N/A - Orders Services needed: Home Care, Registered Nurse, Physical Therapy, Occupational Therapy Home Care Face to Face: I certify that this patient was under my care and that I had the required [id number] encounter meeting the encounter requirements on the discharge day. My findings support the fact that the patient is homebound as defined in Home Care Face to Face Continued: CMS Chapter 7 Medicare Benefits Manual 30.1.1 , The condition of the patient is such that there exists a normal inability to leave home and consequently, leaving home would require a considerable and taxing effort. Diet Recommendation: no restrictions on diet Diet Texture: Regular Texture Diet - Labs/Radiology PT/INR Date: 09/08/17 - Follow Up Care Current Providers and Referrals: Gavin Faulkner MD [Medical Doctor] - (please call to make an appointment to see Dr. Faulkner 10-14 days from day of surgery. )
--- NOTE | 2017-09-06 14:57 | ASMTCMCOM ---
CM Note CM Note Notes: PT recommending HHC. OT recommending home no needs. Met with pt & RN to discuss. RN recommedning HHC RN to assist pt with PT/INR lab draws & therapeutic pain management. Pt agreeable; [facility] chosen. Address & phone number verified. Referral faxed to [facility]. Spoke with Nicho, at [facility]; willing to accept. Pt, CLOSING COORDINATOR & RN updated. No other needs at this time. Date Signed: 09/06/2017 02:57 PM Electronically Signed By:Jessica Everett RN
--- NOTE | 2017-09-06 16:53 | GDS ---
[f rep st] DISCHARGE SUMMARY DISCHARGE DIAGNOSES: 1. Right hip fracture. 2. Pain. CONSULTATIONS: Orthopedics. STUDIES AND PROCEDURES DONE: Total hip arthroplasty. PHYSICAL EXAM: GENERAL: The patient is alert. VITAL SIGNS: Afebrile at 36.7, pulse is 76, respira tory rate 16, blood pressure is 155/105. He is saturating 95% on room air. I have seen and evaluate d the patient on the day of discharge. HOSPITAL COURSE: The patient is a 62-year-old male who presented to the emergency room with complain ts of hip pain. He was evaluated and diagnosed with: 1. Right hip fracture. During this hospitalization, he received a consultation from Dr. Faulkner of [facility]. A right-sided total hip arthroplasty was performed. The patient is in the postoperative setting. He is doing well. Physical Therapy and Occupational Therapy have recommended home health c are and this will be ordered for him at the time of disposition. 2. Pain. Pain medications have been ordered prior to his disposition. His pain is well controlled currently at this time. 3. Hypertension. This is in the hospital setting. No medications have been initiated prior to disp osition. He will follow with his primary care physician. 4. Deep venous thrombosis prophylaxis. The patient will continue on Coumadin in the outpatient sett ing. DISPOSITION: The patient will be discharged home with home health care including PT, OT and RN. The re are no pending studies. DISCHARGE MEDICATIONS: Please refer to EMR form. I have provided prescriptions for the patient for tramadol, Coumadin, oxycodone IR, Robaxin. FOLLOWUP: I have instructed him to follow up with Dr. Faulkner, and to continue his hip precautions. H e is in agreement with this plan. There are no pending studies. I have spent greater than 35 minutes in the care, coordination, and management of the patient's dispo sition. /[id number]/MODL
--- NOTE | 2017-09-07 08:38 | ASDISCHSUM ---
Discharge Information Plan Status:Home with Home Health Medically Cleared to Leave: Discharge Date:09/06/2017 03:40 PM CM D/C Disposition:Home Health Service ADT D/C Disposition:Home Health Service Projected Discharge Date:09/06/2017 11:00 AM Transportation at D/C:Family Discharge Delay Reason: Follow-Up Date:09/06/2017 11:00 AM Discharge Slot: Final Diagnosis: Placement Information Referral Type:*Home Health Care Services Referral ID:[id number] Provider Name:[facility] Address 1[address] Address 2: City:[place] Selection Factors: State:[place] Patient Contact Information Contact Name:ALEXYS Relationship: Address:[address] Work Phone: City:[place] Alternate Phone: State/Zip Code:[place] [address] Email: Financial Information Financial Class:HMO and PPO Plans Primary Plan Desc:H[employer] Primary Plan Number:[id number] Secondary Plan Desc: Secondary Plan Number: Assessment Information [facility] CM Progress Note CM Note CM Note Notes: Pt to OR today for hip fx after a fall. Pt independent w all ADLs/IADLs at baseline. Will need to assess needs after surgery and no therapies ordered at this time. Pt may need HHC. CM to follow. Date Signed: 09/03/2017 03:14 PM Electronically Signed By:HITESH Blake [facility] CM Progress Note CM Note CM Note Notes: PT recommending HHC. OT recommending home no needs. Met with pt & RN to discuss. RN recommedning [facility] RN to assist pt with PT/INR lab draws & therapeutic pain management. Pt agreeable; [facility] chosen. Address & phone number verified. Referral faxed to [facility]. Spoke with Nicho at [facility]; willing to accept. Pt, OUTPATIENT DIETITIAN & RN updated. No other needs at this time. Date Signed: 09/06/2017 02:57 PM Electronically Signed By:Jessica Everett RN Intervention Information
== END 2017-09-06 15:40 | disposition home health service (06) | DRG 470 ==
LOC: F3N 16:49
PROVIDERS: ADMIT Hospitalist; ATTEND Internal Medicine
PROC: 0SR902Z Replacement of Right Hip Joint with Metal on Polyethylene Synthetic Substitute, Open Approach (ICD-10-PCS; principal; 2017-09-03 14:30)
DX: S72.011A Unspecified intracapsular fracture of right femur, initial encounter for closed fracture (principal); W10.8XXA Fall (on) (from) other stairs and steps, initial encounter; R03.0 Elevated blood-pressure reading, without diagnosis of hypertension; Z85.820 Personal history of malignant melanoma of skin
CPT/HCPCS: 96374; 97110-GP; 97116-GP; 97161-GP; 97165-GO; 97530-GP; 97535-GO; J0171; J0690; J1170; J1885; J2001; J2250; J2405; J2704; J2765; J2795; J3010

== ENCOUNTER → 2018-01-14 | Outpatient (CLI) | payer OTHER | LOC: CIMAGING 10:36 | PROVIDERS: ATTEND Physician Assistant Surgical | DX: M51.36 Other intervertebral disc degeneration, lumbar region (principal); M50.30 Other cervical disc degeneration, unspecified cervical region | CPT/HCPCS: 72100-PO ==

== ENCOUNTER 2018-02-24 07:15 | Inpatient (IN) | payer OTHER ==
[2018-05-26] MEDS ORDERED: TRANEXAMIC ACID 1,000 MG in NS 100 ML IV ONE (06:00)
[2018-05-26] MEDS ORDERED: GABAPENTIN 300 MG CAP PO ONE (07:13)
[2018-05-26] MEDS ORDERED: morphINE PF 0.2 MG in SYRINGE INTRATHECAL 1 SYR IT ONE (07:13)
[2018-05-26] MEDS ORDERED: fentaNYL 50 MCG in SYRINGE INTRATHECAL 1 SYR IT ONE (07:13)
[2018-05-26] MEDS ORDERED: ACETAMINOPHEN 500 MG TAB PO ONE (07:13)
[2018-05-26] MEDS ORDERED: ceFAZolin 2 GM/DEXTROSE 100 ML IV ONE (07:13)
[2018-05-26] MEDS ORDERED: LIDOCAINE 1% 2 ML INJ ID PRN (07:14)
[2018-05-26] MEDS ORDERED: LR 1,000 ML IV ONE (07:14)
--- NOTE | 2018-05-26 07:21 | PDHPUP ---
History & Physical Update H&P update statement: This history and physical update is based on an assessment of the patient which was completed after admission or registration (within 24 hours), but prior to the surgery/procedure. H&P update: H&P reviewed & patient examined, no change in patient's condition since H&P completed
[2018-05-26] MEDS ORDERED: BUPIVACAINE 0.25% 30 ML SDV ONE (09:13)
[2018-05-26] MEDS ORDERED: CHLORHEXIDINE GLUC HIBICLENS 118 ML BTL TP ONE (09:13)
[2018-05-26] MEDS ORDERED: EPINEPHrine 1 MG/ML INJ ONE (09:13)
[2018-05-26] MEDS ORDERED: THROMBIN (BOVINE) 5,000 UNIT VIAL TP ONE (09:13)
[2018-05-26] MEDS ORDERED: CITRATE DEXTROSE SOLN 500 ML BAG ONE (09:13)
[2018-05-26] MEDS ORDERED: BACITRACIN 50,000 UNITS/10 ML SYR IRR ONE (09:14)
[2018-05-26] MEDS ORDERED: MIDAZOLAM 2 MG/2 ML VIAL IVP ONE (09:14)
--- NOTE | 2018-05-26 09:15 | PDANEPAE ---
ANE Past Medical History - Cardiovascular History Hx Hypertension: No Hx Arrhythmias: No Hx Chest Pain: No Hx Coronary Artery / Peripheral Vascular Disease: No Hx CHF / Valvular Disease: No Hx Palpitations: No Cardiovascular History Comment: SYNCOPE ISSUE 20 PLUS YRS AGO. WORK UP NEG - Pulmonary History Hx COPD: No Hx Asthma/Reactive Airway Disease: No Hx Recent Upper Respiratory Infection: No Hx Oxygen in Use at Home: No Hx Sleep Apnea: No Sleep Apnea Screening Result - Last Documented: Positive - Neurologic History Hx Cerebrovascular Accident: No Hx Seizures: No Hx Dementia: No - Endocrine History Hx Diabetes: No Hypothyroid: No Hyperthyroid: No Obesity: no - Renal History Hx Renal Disorders: No - Liver History Hx Hepatic Disorders: No - Neurological & Psychiatric Hx Hx Neurological and Psychiatric Disorders: No - Cancer History Hx Cancer: Yes Cancer History Comment: MELANOMA - Congenital Disorder History Hx Congenital Disorders: No - GI History Hx Gastrointestinal Disorders: No - Other Health History Other Health History: DJD - Chronic Pain History Chronic Pain: Yes (LUMBAR REGION) - Surgical History Prior Surgeries: RT TOTAL HIP 08/2017. NASAL. HEMORRHOIDS. SKIN MELANOMA ANE Review of Systems Review of Systems: - Exercise capacity METS (RN): 4 METS ANE Patient History - Allergies Allergies/Adverse Reactions: No Known Drug Allergies Allergy (Unknown, Verified 05/26/18 07:21) - Home Medications Home Medications: Methocarbamol [Robaxin 500 mg (*)] 500 mg PO DAILY PRN 05/20/18 [Last Taken Unknown] Zolpidem Tartrate [Ambien 5MG (*)] 5 mg PO HS PRN 05/20/18 [Last Taken Unknown] oxyCODONE IR [Oxycodone Ir (*)] 5 mg PO TID PRN 05/20/18 [Last Taken Unknown] - NPO status NPO Since - Liquids (Date): 05/25/18 NPO Since - Liquids (Time): 22:00 NPO Since - Solids (Date): 05/25/18 NPO Since - Solids (Time): 20:00 - Smoking Hx Smoking Status: Never smoked ANE Labs/Vital Signs - Vital Signs Blood Pressure: 131/100 Heart Rate: 75 Respiratory Rate: 16 O2 Sat (%): 96 Height: 182.88 cm Weight: 79.379 kg ANE Physical Exam - Airway Neck exam: FROM Mallampati Score: Class 2 Mouth exam: normal dental/mouth exam - Pulmonary Pulmonary: no respiratory distress - Cardiovascular Cardiovascular: regular rate and rhythym - ASA Status ASA Status: II ANE Anesthesia Plan Anesthesia Plan: general endotracheal anesthesia
[2018-05-26] MEDS ORDERED: DEXAMETHASONE 4 MG/ML VIAL ONE (09:24)
[2018-05-26] MEDS ORDERED: fentaNYL 250 MCG/5 ML INJ ONE (09:24)
[2018-05-26] MEDS ORDERED: ONDANSETRON 4 MG/2 ML VIAL ONE (09:24)
[2018-05-26] MEDS ORDERED: REMIFENTANIL HCL 1 MG VIAL ONE (09:24)
[2018-05-26] MEDS ORDERED: ROCURONIUM 100 MG/10 ML VIAL ONE (09:24)
[2018-05-26] MEDS ORDERED: PROPOFOL/EMULSION 500 MG/50 ML BOTTLE IV ONE (09:24)
[2018-05-26] MEDS ORDERED: PROPOFOL 200 MG/20 ML VIAL ONE ×2 (09:24→10:07)
[2018-05-26] MEDS ORDERED: LIDOCAINE 2% 2 ML INJ ONE (09:25)
[2018-05-26] MEDS ORDERED: PHENYLEPHRINE HCL 100 MCG/ML SYR ONE ×2 (10:59→12:57)
[2018-05-26] MEDS ORDERED: fentaNYL 100 MCG/2 ML INJ ONE (11:56)
[2018-05-26] MEDS ORDERED: ceFAZolin 1 GM VIAL ONE (12:58)
[2018-05-26] MEDS ORDERED: HEPARIN 10,000 UNIT/10 ML MDV (1,000 UNIT/ML) ONE (12:58)
[2018-05-26] MEDS ORDERED: VASOPRESSIN 20 UNIT/ML VIAL ONE (12:58)
[2018-05-26] MEDS ORDERED: ePHEDrine SULFATE 25 MG/5 ML SYR ONE (12:58)
[2018-05-26] MEDS ORDERED: LACTULOSE 20 GM/30 ML UDCUP PO PRN (13:11)
[2018-05-26] MEDS ORDERED: ONDANSETRON 4 MG/2 ML VIAL IVP PRN ×2 (13:11→13:44)
[2018-05-26] MEDS ORDERED: MAGNESIUM HYDROXIDE 30 ML UDCUP PO PRN (13:11)
[2018-05-26] MEDS ORDERED: oxyCODONE IR 5 MG TAB PO PRN (13:11)
[2018-05-26] MEDS ORDERED: ONDANSETRON DISINTEGRATING 4 MG TAB PO PRN (13:11)
[2018-05-26] MEDS ORDERED: BISACODYL 10 MG SUPP PR PRN (13:11)
[2018-05-26] MEDS ORDERED: morphINE PCA 30 MG/30 ML PCA IV PRN (13:11)
[2018-05-26] MEDS ORDERED: NALOXONE HCL 0.4 MG/ML INJ IVP PRN ×2 (13:11→13:44)
[2018-05-26] MEDS ORDERED: NS 1,000 ML IV SCH (13:15)
--- NOTE | 2018-05-26 13:18 | GOP ---
DATE OF OPERATION: 05/26/2018 SURGEON: José Luis Rider MD NEUROSURGEON: José Luis Rider MD EQUIPMENT SERVICE ENGINEER: Kayode Ferguson PA-C. ANESTHESIA: General endotracheal. PREOPERATIVE DIAGNOSIS: Severe multilevel lumbar degenerative joint disease with critical lateral re cess and foraminal impingement. Intractable low back pain. Right lower extremity radiculopathy. Fa iled conservative care. POSTOPERATIVE DIAGNOSIS: Severe multilevel lumbar degenerative joint disease with critical lateral r ecess and foraminal impingement. Intractable low back pain. Right lower extremity radiculopathy. F vitaly conservative care. PROCEDURE PERFORMED: Mini open exposure for right-sided L4-5 and L5-S1 far lateral transpedicular de compression with L4 through S1 posterior segmental (pedicle screw) fixation and posterolateral fusion with local autograft, bone morphogenic protein, and morselized allograft. L4-5 and L5-S1 posterior/ transforaminal lumbar interbody fusion with 2 structural PEEK interbody spacers, local autograft and bone morphogenic protein. Use of intraoperative microscopy, fluoroscopy, and computer volumetric david reotactic navigation with intraoperative neurophysiologic testing. Injection of intrathecal narcotic analgesics for postoperative pain control. FINDINGS: ESTIMATED BLOOD LOSS: 150 cc. INDICATIONS: The patient is a 62-year-old man with intractable low back pain and right lower extremi ty radicular symptoms, secondary to severe multilevel lumbar degenerative joint disease and neural fo raminal impingement with lateral recess stenosis who has failed conservative care and presents now fo r surgical decompression and stabilization. DESCRIPTION OF PROCEDURE: After informed consent was obtained, the patient was taken to the operatin g room and placed in the prone position on a Wesley table. The lumbosacral area was prepped and marina ped in a sterile fashion. After fluoroscopic localization of correct levels, the subcutaneous and in tramuscular tissues were infiltrated with local anesthesia. A midline linear incision was then created from approximately L4 through S1. This was carried down t o the fascial layer, which was then incised using monopolar electrocautery and carried in the subperi osteal plane along the spinous processes and out lamina bilaterally. Intraoperative fluoroscopy was again utilized to verify the correct levels. Following this, the dissection was carried out over the facet joints and the microscope was then brought in. Right-sided far lateral transpedicular decompressions were performed at the L4-5 and L5-S1 levels wit h complete unroofing of the facet joints and neural foramen. The microscope and the instruments were angled across the midline and a left-sided decompression as best I could was performed as well. Following this, the [employer] neuronavigational system was brought in and pedicle screws were placed at L4, L5, and S1 using computer volumetric stereotactic navigation. Intraoperative neurophysiologic t esting was also performed with monopolar electrostimulation and interpretation of the potentials by t surgeon. Biplanar fluoroscopy was utilized to verify good positioning. The right L5 screw was slightly long and lateral, but given the stimulation threshold over 20 and the imaging, I felt that it was in the best interest to leave the screw as it was. Short rods were then placed, first at L5-S1, then at L4-5, during which time distraction was created across the interspac es and complete diskectomies were performed with preparation of endplates and placement of 2 structur al PEEK interbody spacers, local autograft, bone morphogenic protein, and morselized allograft for L4 -5 and L5-S1 posterior/transforaminal lumbar interbody fusions. The shorter rods were then removed a nd longer rods extending from L4-S1 was then placed and secured under compression in order to facilit ate bony union and to minimize the potential for posterior graft migration. Axle devices were then placed at the L4-5 and L5-S1 levels in lieu of left-sided pedicle screws in or brianda to maximize the bony surface area for the posterolateral fusion and to minimize the risk of neura l injury or other issues with pedicle screws. The remaining laminae and facet joints on the left wer e then extensively decorticated, and the residual local autograft, along with bone morphogenic protei n and morselized allograft was placed out laterally for posterolateral fusion at the L4-S1 levels. 200 mcg of Duramorph, along with 50 mcg of fentanyl were injected intrathecally at the L3-4 level for postoperative pain control. The subcutaneous and intramuscular tissues were re-infiltrated with loc al anesthesia. A drain was placed, and after re-verification of good position of these screws, rods, interbody spacers, and interspinous process clamps using biplanar fluoroscopy, the wound was closed in a layered fashion using interrupted Vicryl sutures, followed by Steri-Strips on the skin. COMPLICATIONS: None. DISPOSITION: The patient is currently in the process of being repositioned for extubation. /[id number]/MODL
--- NOTE | 2018-05-26 13:21 | SOAPPROG ---
SOAP Progress Note Assessment/Plan: Assessment: 62 yo M sp L4-S1 TLIF Plan: stable episode of sinus bradycardia with bigeminal pacs but no hemodynamic changes, cardiology to see LSO brace when out of bed PT/OT lovenox starts POD #1 please call with neuro changes 05/26/18 13:17 Subjective: + back pain, no leg pain Objective: Vital Signs Temp Pulse Resp BP Pulse Ox 36.4 C 75 16 131/100 H 96 05/26/18 07:22 05/26/18 09:15 05/26/18 09:15 05/26/18 09:15 05/26/18 09:15 somnolent PERRL, No facial droop GENET x 4 + light touch ICD10 Worksheet Patient Problems: Problems Problem Status Onset Fusion of spine of lumbar region Acute Fracture of femoral neck, right, closed Acute - ICD10 Problem Qualifiers (1) Fusion of spine of lumbar region
[2018-05-26] MEDS ORDERED: NALOXONE HCL 0.4 MG/ML INJ ONE (13:23)
--- NOTE | 2018-05-26 13:43 | POSTANESTH ---
Post Anesthetic Evaluation Cardiovascular Status: Normal, Stable Respiratory Status: Normal, Stable, Requires Airway Assist Pain Control: Adequate, Prn Tx Ordered Nausea/Vomiting Control: Adequate, Prn Tx Ordered Complications Possibly Related to Anesthesia: None Noted (Had a brief episode of bradycardia in OR, about 10 min after incision time, followed by a long period (over one hour) where frequent PACs were present. Most likely, same etiology as the episode of syncope he has had in the past, with an inconclusive workup at the time. he will be admitted to a telemtry-capable unit. Currently, he is in NSR. All other VS are stable. No complications present at this time.)
[2018-05-26] MEDS ORDERED: fentaNYL 100 MCG/2 ML INJ IVP PRN (13:44)
[2018-05-26] MEDS ORDERED: LR 500 ML IV PRN (13:44)
--- NOTE | 2018-05-26 14:13 | PDMN ---
Medical Necessity Medical necessity: [facility] [place] S820 lumbar fusion INPT only : TLIF AUTH # [id number]
[2018-05-26] MEDS: ceFAZolin 2 GM/DEXTROSE 100 ML IV SCH (18:11)
[2018-05-26] MEDS: POLYETHYLENE GLYCOL 3350 17 GM PKT PO SCH ×2 (18:15→22:17)
[2018-05-26] MEDS: SENNOSIDES/DOCUSATE SODIUM TAB PO SCH (21:11)
[2018-05-26] MEDS: FAMOTIDINE 20 MG TAB PO SCH (21:11)
[2018-05-26] MEDS: morphINE SR 15 MG TAB PO SCH (21:16)
[2018-05-27] MEDS: ceFAZolin 2 GM/DEXTROSE 100 ML IV SCH (03:40)
[2018-05-27 04:41] LABS: PLATELET COUNT 225 10^3/uL (150-400)
[2018-05-27] MEDS: FAMOTIDINE 20 MG TAB PO SCH ×2 (08:18→21:15)
[2018-05-27] MEDS: SENNOSIDES/DOCUSATE SODIUM TAB PO SCH ×2 (08:19→21:15)
[2018-05-27] MEDS: morphINE SR 15 MG TAB PO SCH (08:19)
[2018-05-27] MEDS: ENOXAPARIN 40 MG/0.4 ML SYR SC SCH (08:20)
--- NOTE | 2018-05-27 09:20 | ASMTCMCOM ---
CM Note CM Note Notes: Pt is a 62 y/o man admitted for a planned spinal fusion. Pt is being monitored for bradycardia. Therapies have been ordered and awaiting recommendations. Needs are TBD at this time. CM to follow. Plan: TBD Date Signed: 05/27/2018 09:20 AM Electronically Signed By:GLENDY Bales
--- NOTE | 2018-05-27 09:49 | SOAPPROG ---
SOAP Progress Note Assessment/Plan: Assessment: POD #1 sp L4-S1 TLIF. Doing well Post op Bradycardia. This did not recur overnight or this AM, but Cardiology has been consulted Plan: PT/OT as tolerated in his LSO COntinue PARISH drain. Cardiology consult Continue Tele monitoring Lumbar xrays today to evaluate hardware 05/27/18 09:46 Subjective: Awake, comfortable. Denies any new issues. Objective: Vital Signs Temp Pulse Resp BP Pulse Ox 36.8 C 79 20 117/79 99 05/27/18 07:57 05/27/18 07:57 05/27/18 07:57 05/27/18 07:57 05/27/18 07:57 Laboratory Results 05/27/18 03:24 05/27/18 03:24 05/26/18 05/27/18 05/28/18 05:59 05:59 05:59 Intake Total 9005 Output Total 5765 2160 Balance 3240 -2160 Neuro: A+0X4 Love, sens +LT throughout PARISH: 60ml ICD10 Worksheet Patient Problems: Problems Problem Status Onset Fusion of spine of lumbar region Acute Fracture of femoral neck, right, closed Acute
[2018-05-27] MEDS: POLYETHYLENE GLYCOL 3350 17 GM PKT PO SCH ×3 (12:26→23:02)
[2018-05-27] MEDS: ACETAMINOPHEN 500 MG TAB PO SCH ×2 (16:34→21:15)
[2018-05-27] MEDS: oxyCODONE IR 5 MG TAB PO PRN ×2 (17:33→21:29)
--- NOTE | 2018-05-27 18:21 | GCON ---
CARDIOLOGY CONSULTATION CHIEF COMPLAINT: Bradycardia, APCs, status post spinal surgery. HISTORY OF PRESENT ILLNESS: This is a 62-year-old male who underwent L4-L5 spinal fusion surgery on 05/26/2018. Postoperatively, the patient was found to have sinus bradycardia with APCs, according to telemetry reports. The patient was asymptomatic during these runs. Currently, the patient is being evaluated and is in sinus rhythm with no evidence of PVCs or APCs. Blood pressure has been currentl y stable. He has not had any history of rate-controlling medications, i.e., beta-pau or calcium channel-blockers. No significant cardiovascular history. PAST MEDICAL HISTORY: Significant for recent spinal fusion surgery on 05/26/2018. SOCIAL HISTORY: He is . Occasional alcohol use. No current smoking. FAMILY HISTORY: Noncontributory. REVIEW OF SYSTEMS: The patient currently denies any visual changes. No headache. No throat pain. No neck pain. No upper extremity pain. No chest pain. No shortness of breath. No abdominal discom fort. He does indicate having some lower back tenderness. No lower extremity pain. No neurologic d eficits. PHYSICAL EXAM: VITAL SIGNS: Patient currently afebrile, . Blood pressure currently 126/9 2, respirations 12, heart rate of 96, sat 95% on room air. HEENT: Pupils equal, round, and reactive to light and accommodation. Extraocular motions intact. CARDIOVASCULAR: Regular rate and rhythm, S1, S2. LUNGS: Clear to auscultation bilaterally. ABDOMEN: Soft, tender, no guarding. EXTREMITIE S: No clubbing, no cyanosis, no edema. NEUROLOGIC: The patient is alert x3. LABORATORY VALUES: Currently show a sodium of 134, potassium 4.2, creatinine 0.7, BUN of 8. White c ell 10,000, hemoglobin 12.7, platelet count of 225. ASSESSMENT/PLAN: Postoperative arrhythmias. At this time, the patient is in sinus rhythm. There is no evidence of any excessive PVCs or APCs present on his current telemetry monitoring. We will chec k a baseline 12-lead ECG for documentation and continue to monitor the patient overnight on telemetry . At this point, the patient is clinically stable from a cardiovascular perspective. We will follow up as needed. Please call with any questions. /[id number]/MODL
[2018-05-27] MEDS: DIAZEPAM 5 MG TAB PO PRN (22:55)
[2018-05-28] MEDS: oxyCODONE IR 5 MG TAB PO PRN ×6 (01:36→23:49)
[2018-05-28] MEDS: FAMOTIDINE 20 MG TAB PO SCH ×2 (10:53→20:41)
[2018-05-28] MEDS: SENNOSIDES/DOCUSATE SODIUM TAB PO SCH ×2 (10:53→20:41)
[2018-05-28] MEDS: ENOXAPARIN 40 MG/0.4 ML SYR SC SCH (10:53)
[2018-05-28] MEDS: POLYETHYLENE GLYCOL 3350 17 GM PKT PO SCH ×3 (10:53→20:39)
[2018-05-28] MEDS: ACETAMINOPHEN 500 MG TAB PO SCH ×3 (10:54→20:39)
--- NOTE | 2018-05-28 12:41 | ASMTCMCOM ---
CM Note CM Note Notes: PT is recommending HC. OT has cleared pt to d/c home independent. CM met w/ pt for dispo planning. Pt is agreeable to HC services. Pt does not have a HC agency preference as long as it takes his insurance. Referral made to [facility]. [facility] is able to accept. CM to follow. Plan: [facility]; PT Date Signed: 05/28/2018 12:41 PM Electronically Signed By:GLENDY Bales
[2018-05-28] MEDS: METHOCARBAMOL 750 MG TAB PO PRN ×2 (13:50→20:42)
--- NOTE | 2018-05-28 15:50 | SOAPPROG ---
SOAP Progress Note Assessment/Plan: Assessment: Doing well POD #2 sp L4-S1 TLIF. DC MS Contin Post op Bradycardia. This did not recur overnight or this AM, but Cardiology has seen patient and no intervention required. Plan: MRI Lspine to evaluate L3 fracture PT/OT as tolerated in his LSO Continue PARISH drain. Cardiology consult appreciated Continue Tele monitoring Lumbar xrays today to evaluate hardware 05/27/18 09:46 05/28/18 15:49 05/28/18 15:50 Subjective: awake, alert, complains of pain, but had just received pain meds. Denies numbness, tingling or weakness Did not like side effects of MS Contin and will not take it. Objective: Vital Signs Temp Pulse Resp BP Pulse Ox 36.8 C 98 16 110/80 96 05/28/18 11:25 05/28/18 11:36 05/28/18 11:25 05/28/18 11:36 05/28/18 11:36 Laboratory Results 05/27/18 03:24 05/27/18 03:24 05/27/18 05/28/18 05/29/18 05:59 05:59 05:59 Intake Total 9005 4150 500 Output Total 5765 5380 555 Balance 3240 -1230 -55 Neuro: GUERRERO, sens +LT throughout 12/18 bilateral LE ambulated to BR today Incision: CDI RN to reapply dressing PARISH: 55ml Post op xrays show satisfactory position of hardware with new L3 fracture since January 2018 with mild retropulsion. ICD10 Worksheet Patient Problems: Problems Problem Status Onset Fusion of spine of lumbar region Acute Fracture of femoral neck, right, closed Acute
[2018-05-28] MEDS: DIAZEPAM 5 MG TAB PO PRN (17:00)
[2018-05-28] MEDS: diphenhydrAMINE 25 MG CAP PO PRN (20:45)
[2018-05-29] MEDS: oxyCODONE IR 5 MG TAB PO PRN ×5 (03:52→23:37)
[2018-05-29] MEDS: ACETAMINOPHEN 500 MG TAB PO SCH ×4 (03:56→19:39)
--- NOTE | 2018-05-29 09:04 | SOAPPROG ---
SOAP Progress Note Assessment/Plan: Assessment: Doing well POD #3 sp L4-S1 TLIF. Post op xrays show new L3 fracture since January 2018. Back pain well controlled Plan: MRI Lspine to evaluate L3 fracture. Pt will need IV Valium given history of claustrophobia PT/OT as tolerated in his LSO. Encourage OOB. Continue stool softeners/Miralax and Lovenox Continue PARISH drain. Cardiology consult appreciated Continue Tele monitoring Subjective: sitting up in bed working on computer. Pain controlled. Denies new issues. Objective: Vital Signs Temp Pulse Resp BP Pulse Ox 36.6 C 87 16 99/76 L 93 05/29/18 07:36 05/29/18 07:36 05/29/18 07:36 05/29/18 07:36 05/29/18 07:36 Laboratory Results 05/27/18 03:24 05/27/18 03:24 05/28/18 05/29/18 05/30/18 05:59 05:59 05:59 Intake Total 4150 2150 Output Total 5380 2885 Balance -1230 -735 Dressing: CDI PARISH: 85ml Neuro: A+Ox4 FC, conversant 5/5 bilateral LE, sens +LT throughout ICD10 Worksheet Patient Problems: Problems Problem Status Onset Fusion of spine of lumbar region Acute Fracture of femoral neck, right, closed Acute
[2018-05-29] MEDS: SENNOSIDES/DOCUSATE SODIUM TAB PO SCH ×2 (09:40→19:39)
[2018-05-29] MEDS: ENOXAPARIN 40 MG/0.4 ML SYR SC SCH (09:40)
[2018-05-29] MEDS: METHOCARBAMOL 750 MG TAB PO PRN ×2 (09:41→17:37)
[2018-05-29] MEDS: FAMOTIDINE 20 MG TAB PO SCH ×2 (09:41→19:39)
[2018-05-29] MEDS: POLYETHYLENE GLYCOL 3350 17 GM PKT PO SCH ×3 (09:41→23:37)
[2018-05-29] MEDS ORDERED: DIAZEPAM 5 MG TAB PO PRN ×2 (11:13→12:19)
[2018-05-29] MEDS ORDERED: DIAZEPAM 10 MG/2 ML SYR IVP PRN (11:22)
--- NOTE | 2018-05-29 16:58 | ASMTCMCOM ---
CM Note CM Note Notes: CM spoke with KRISTA Freire, patient will not be discharging today, monitoring to continue. ONIEL spoke with Larissa with [facility], updated patient status and intake will follow up tomorrow. CM to follow. Plan: [facility] Date Signed: 05/29/2018 04:57 PM Electronically Signed By:Lena Cruz
[2018-05-29] MEDS: DIAZEPAM 5 MG TAB PO PRN (19:01)
[2018-05-30] MEDS: METHOCARBAMOL 750 MG TAB PO PRN ×3 (02:28→21:34)
[2018-05-30] MEDS: oxyCODONE IR 5 MG TAB PO PRN ×6 (02:29→21:35)
[2018-05-30] MEDS: diphenhydrAMINE 25 MG CAP PO PRN (02:32)
--- NOTE | 2018-05-30 08:15 | NEUSURGPN ---
Assessment/Plan: Assessment: Doing well POD #4 sp L4-S1 TLIF. Post op xrays show new L3 fracture since January 2018. Back pain well controlled Plan: MRI Lspine L3 fracture is subacute, discussed continued bracing as first option with patient. PT/OT as tolerated in his LSO. Encourage OOB. Continue stool softeners/Miralax and Lovenox Continue PARISH drain, 85 out yesterday, 35 since midnight Cardiology consult appreciated Continue Tele monitoring Dispo planning once pain well tolerated and cleared by consulting teams. Subjective: low back pain, improved and tolerable with Robaxin Objective: NAD A&Ox3 MAEx4. Dressing with some sanguinous staining. PARISH serosanguineous Catheter Insertion Date: 05/26/18 - Physician Discussed Patient with : Adry Neurosurgery Physical Exam - Vitals, I&O, Labs I and O 05/29/18 05/30/18 05/31/18 05:59 05:59 05:59 Intake Total 2150 600 Output Total 2885 1060 Balance -735 -460 Intake: Oral (ml) 2150 600 Output: Urine (ml) 2800 1025 Urinal 2800 1025 PARISH Drain Output (ml) 85 35 #1 Posterior Back Wesley 85 35 Hood Other: Number of Voids Urinal 1 Number of Stools Urinal 1 Vital Signs Temp Pulse Resp BP Pulse Ox 37.3 C 97 16 111/85 H 95 05/30/18 04:00 05/30/18 04:00 05/30/18 04:00 05/30/18 04:00 05/30/18 04:00 Laboratory Results 05/27/18 03:24 05/27/18 03:24 ICD10 Worksheet Patient Problems: Problems Problem Status Onset Fusion of spine of lumbar region Acute Fracture of femoral neck, right, closed Acute
[2018-05-30] MEDS: SENNOSIDES/DOCUSATE SODIUM TAB PO SCH ×2 (09:55→21:34)
[2018-05-30] MEDS: ACETAMINOPHEN 500 MG TAB PO SCH ×3 (09:55→21:35)
[2018-05-30] MEDS: ENOXAPARIN 40 MG/0.4 ML SYR SC SCH (09:56)
[2018-05-30] MEDS: FAMOTIDINE 20 MG TAB PO SCH ×2 (09:56→21:34)
[2018-05-30] MEDS: POLYETHYLENE GLYCOL 3350 17 GM PKT PO SCH ×3 (09:56→21:34)
[2018-05-31] MEDS: oxyCODONE IR 5 MG TAB PO PRN ×3 (02:14→13:22)
--- NOTE | 2018-05-31 08:31 | NEUSURGPN ---
Assessment/Plan: Assessment: Doing well POD #5 sp L4-S1 TLIF. Post op xrays and new MRI L spine show new L3 fracture since January 2018. Back pain well controlled Plan: MRI Lspine L3 fracture is subacute, discussed continued bracing as first option with patient. PT/OT as tolerated in his LSO. Encourage OOB. Continue stool softeners/Miralax and Lovenox Continue PARISH drain, 60cc out last 24 hours Cardiology consult appreciated - per notes on 05/27 pt is clinically stable Continue Tele monitoring Plan for DC to home today Updated Dr. Castillo Call NS with any issues Subjective: Pt resting in bed, states he has more left sided hip pain. Initially pain was on right. Objective: AAOx3 NAD VSS MAEx4 Motor 5/5 BLE JPx1 Incision dressed +LT Urinary Catheter in Place: No Catheter Insertion Date: 05/26/18 - Physician Discussed Patient with : Adry Neurosurgery Physical Exam - Vitals, I&O, Labs I and O 05/30/18 05/31/18 06/01/18 05:59 05:59 05:59 Intake Total 600 3000 Output Total 1060 985 Balance -460 2014 Intake: Oral (ml) 600 3000 Output: Urine (ml) 1025 925 Urinal 1025 925 PARISH Drain Output (ml) 35 60 #1 Posterior Back Wesley 35 60 Hood Other: Intake Quantity Yes Sufficient Number of Voids Urinal 1 Number of Stools Urinal 1 Vital Signs Temp Pulse Resp BP Pulse Ox 37.2 C 93 16 137/99 H 93 05/31/18 07:47 05/31/18 07:47 05/31/18 07:47 05/31/18 07:47 05/31/18 07:47 Laboratory Results 05/27/18 03:24 05/27/18 03:24 ICD10 Worksheet Patient Problems: Problems Problem Status Onset Fusion of spine of lumbar region Acute Fracture of femoral neck, right, closed Acute
[2018-05-31] MEDS: SENNOSIDES/DOCUSATE SODIUM TAB PO SCH (09:08)
[2018-05-31] MEDS: FAMOTIDINE 20 MG TAB PO SCH (09:08)
[2018-05-31] MEDS: ACETAMINOPHEN 500 MG TAB PO SCH (09:08)
[2018-05-31] MEDS: POLYETHYLENE GLYCOL 3350 17 GM PKT PO SCH (09:09)
[2018-05-31] MEDS: ENOXAPARIN 40 MG/0.4 ML SYR SC SCH (09:09)
--- NOTE | 2018-05-31 12:33 | PDIAF ---
- Diagnosis Code Status: Full Code - Medication Management Discharge Medications: Medications to Continue on Transfer Zolpidem Tartrate [Ambien 5MG (*)] 5 mg PO HS PRN 05/20/18 [Last Taken Unknown] Methocarbamol [Robaxin 750 mg (*)] 750 mg PO QID PRN #60 tab 05/31/18 [Last Taken Unknown] oxyCODONE IR [Oxycodone Ir (*)] 10 - 15 mg PO Q4HRS PRN #90 tab 05/31/18 [Last Taken Unknown] Discharge Medications: Refer to the Discharge Home Medication list for PRN reason. - Orders Services needed: Home Care, Physical Therapy Home Care Face to Face: I certify that this patient was under my care and that I had the required [id number] encounter meeting the encounter requirements on the discharge day. My findings support the fact that the patient is homebound as defined in Home Care Face to Face Continued: CMS Chapter 7 Medicare Benefits Manual 30.1.1 , The condition of the patient is such that there exists a normal inability to leave home and consequently, leaving home would require a considerable and taxing effort. Diet Recommendation: no restrictions on diet Diet Texture: Regular Texture Diet Additional Instructions: No bending/lifting/twisting wear brace when out of bed 5-10lb weight limit Follow up in 2-3 weeks for post op No NSAIDs Call office with any issues @ [phone] - Follow Up Care Current Providers and Referrals: Arik Ott MD [Primary Care Provider] - José Luis Rider MD [Medical Doctor] -
[2018-05-31 12:51] VITALS: BP 122/89
--- NOTE | 2018-05-31 13:18 | ASMTLACE ---
LACE Length of stay for Answers: 4-6 days current admission Acuity / Level of Answers: Yes Care: Did the patient have an inpatient admission? Comorbidities - select Answers: Opioid dependence all that apply / Chronic pain # of Emergency department Answers: 0 visits in the last 6 months Score: 11 Date Signed: 05/31/2018 01:17 PM Electronically Signed By:Alycia Verdugo RN
--- NOTE | 2018-05-31 13:20 | ASMTDCNOTE ---
Case Management Discharge Discharge Order Complete? Answers: Yes Patient to Obtain Answers: via Family Medications Transportation Arranged Answers: Family/Friends Faxed Final Orders Answers: Yes Notes: to [facility] Agency/Facility Transfer Answers: Yes Notes: to HC Report Printed & Faxed to Receiving Agency Discharge Comments Notes: 05/31/2018 Case Management Note Pt to discharge home with [facility] RN PT. Faxed final orders, notified [facility] on the phone. Family to transport home. Date Signed: 05/31/2018 01:19 PM Electronically Signed By:Alycia Verdugo RN
--- NOTE | 2018-06-01 09:19 | ASDISCHSUM ---
Discharge Information Plan Status:Home with Home Health Medically Cleared to Leave:05/31/2018 Discharge Date:05/31/2018 04:54 PM CM D/C Disposition:Home Health Service ADT D/C Disposition:Home Health Service Projected Discharge Date:05/28/2018 11:00 AM Transportation at D/C: Discharge Delay Reason: Follow-Up Date:05/28/2018 11:00 AM Discharge Slot: Final Diagnosis: Placement Information Referral Type:*Home Health Care Services Referral ID:[id number] Provider [facility] [address] Address 2: City:[place] Selection Factors: State:[place] Patient Contact Information Contact Name:ALEXYS Relationship: Address:[address] Work Phone: City:[place] Alternate Phone: State/Zip Code:[place] [address] Email: Financial Information Financial Class:BCOP Primary Plan Desc:[facility] Primary Plan Number:[id number] Secondary Plan Desc: Secondary Plan Number: Assessment Information LACE LACE Length of stay for Answers: 4-6 days current admission Acuity / Level of Answers: Yes Care: Did the patient have an inpatient admission? Comorbidities - select Answers: Opioid dependence all that apply / Chronic pain # of Emergency department Answers: 0 visits in the last 6 months Score: 11 Date Signed: 05/31/2018 01:17 PM Electronically Signed By:Alycia Verdugo RN [facility] CM Progress Note CM Note CM Note Notes: Pt is a 62 y/o man admitted for a planned spinal fusion. Pt is being monitored for bradycardia. Therapies have been ordered and awaiting recommendations. Needs are TBD at this time. CM to follow. Plan: TBD Date Signed: 05/27/2018 09:20 AM Electronically Signed By:GLENDY Bales [facility] CM Progress Note CM Note CM Note Notes: PT is recommending HC. OT has cleared pt to d/c home independent. CM met w/ pt for dispo planning. Pt is agreeable to HC services. Pt does not have a HC agency preference as long as it takes his insurance. Referral made to [facility]. [facility] is able to accept. CM to follow. Plan: [facility]; PT Date Signed: 05/28/2018 12:41 PM Electronically Signed By:GLENDY Bales [facility] CM Progress Note CM Note CM Note Notes: CM spoke with KRISTA Freire, patient will not be discharging today, monitoring to continue. CM spoke with Larissa with [facility], updated patient status and intake will follow up tomorrow. CM to follow. Plan: [facility] Date Signed: 05/29/2018 04:57 PM Electronically Signed By:Lena Cruz Case Management Discharge Plan Note Case Management Discharge Discharge Order Complete? Answers: Yes Patient to Obtain Answers: via Family Medications Transportation Arranged Answers: Family/Friends Faxed Final Orders Answers: Yes Notes: to [facility] Agency/Facility Transfer Answers: Yes Notes: to [facility] Report Printed & Faxed to Receiving Agency Discharge Comments Notes: 05/31/2018 Case Management Note Pt to discharge home with [facility] RN PT. Faxed final orders, notified [facility] on the phone. Family to transport home. Date Signed: 05/31/2018 01:19 PM Electronically Signed By:Alycia Verdugo RN Intervention Information
== END 2018-05-31 16:54 | disposition home health service (06) | DRG 460 ==
LOC: F3N 05-26 06:50 → F2W 05-26 14:55
PROVIDERS: ADMIT Neurological Surgery; ATTEND Neurological Surgery
DX: M47.26 Other spondylosis with radiculopathy, lumbar region (principal); R00.1 Bradycardia, unspecified; S32.039D Unspecified fracture of third lumbar vertebra, subsequent encounter for fracture with routine healing; Z96.641 Presence of right artificial hip joint
CPT/HCPCS: 97116-GP; 97161-GP; 97165-GO; 97530-GO; 97530-GP; 97535-GO; C1713; C1762; G0008; J0171; J0690; J1100; J1644; J1650; J2250; J2270; J2274; J2310; J2370; J2405; J2704; J3010; J3360

== ENCOUNTER 2018-06-02 15:37 | Inpatient (IN) | payer OTHER ==
--- NOTE | 2018-06-02 16:02 | EDPHY ---
HPI/HX/ROS/PE/MDM Narrative: CHIEF COMPLAINT: Back pain HISTORY OF PRESENT ILLNESS: This patient is a 62 year old male s/p transforaminal lumbar interbody fusion on 05/26/[address] Rider, neurosurgeon. He was admitted for a couple days following this and initially felt well, able to walk out. He has been doing PT himself at home. In the past 24 hours, any movement of his right leg including rotation or weight-bearing sends a "tidal wave" of severe pain through his back and down his right leg to his knee lasting about 60 seconds. He has continued muscle spasms following these episodes. He endorses some urinary incontinence when the pain is severe. He reports an intermittent low grade fever, around 99-100 degrees. He has been taking Valium, oxycodone, and Robaxin, but these do not currently control his pain. He is not anticoagulated. He denies noting any redness, swelling, or discharge around the surgical site. No swelling in the right leg. No chills, chest pain, shortness of breath, palpitations, vomiting, diarrhea, headache, lightheadedness. Patient is additionally concerned regarding a new L3 compression fracture noted on recent imaging and denies any known recent trauma. REVIEW OF SYSTEMS: A comprehensive 10 system review of systems is otherwise negative aside from elements mentioned in the history of present illness and medical decision making. PAST MEDICAL HISTORY: TLIF 05/26/18. Hip surgery. SOCIAL HISTORY: . Lives in [place]. Does not abuse tobacco, drugs, or alcohol. VITAL SIGNS: Reviewed by me GENERAL: Uncomfortable appearing. Well-developed, well-nourished. HEENT: Atraumatic. Eyes: No icterus, no injection. Mouth: moist mucous membranes. No erythema or lesions. Neck: supple with no adenopathy. LUNGS: Clear to auscultation bilaterally, no wheezes, rhonchi or rales. CARDIAC: Regular rate and rhythm, no rubs, murmurs or gallops. ABDOMEN: Soft, nontender, nondistended, bowel sounds normal. BACK: Patient has 2 bandages over surgical sites on his right lower back, over L4-L5. No tenderness to palpation in this area, however, any evaluation, or movement to examine the lower back results in severe muscle spasm in this area. Patient does not tolerate or allow me to perform a prolonged or complete evaluation of his back at this time. EXTREMITIES: No trauma. No edema. Normal range of motion in the left lower extremity. Any range of motion of the right lower extremity results in severe muscle spasm and pain and the patient is reluctant to allow this to occur. NEURO: Alert and oriented, grossly nonfocal. Normal sensation in the right lower extremity. Extensor hallucis longus, plantar flexion and dorsalis pedis flexion normal. SKIN: Warm and dry, no rash. PSYCHIATRIC: Normal mentation, no agitation. Portions of this note were transcribed by a auditor medical claims. I personally performed a history, physical exam, medical decision making, and confirmed accuracy of information the transcribed note. ED Course: 62 y/o male who is s/p L4-L5 TLIF on 05/26/18 presents with intermittent severe right-sided sciatic back pain onset about 24 hours ago. 16:[address] Scot Cortez, neurosurgeon. Plan to admit for pain control. Plan for plain films of lumbar spine. Plan for labs including CBC, chemistries, liver function panel. Plan to administer 1mg IV Dilaudid, 5mg IV Valium, 1L IV NS for symptom relief. Patient unable to tolerate x-ray due to discomfort from the board. Plan for CT lumbar spine for further evaluation. 18:00 Patient continues to complain of severe pain. Plan to administer an additional 0.5mg IV Dilaudid for symptom relief. 19:23 Dr. Rider present in the ED, reviewing patient's CT. He recommends admission of the patient to the neurosurgical service. MDM: Differential diagnoses for the patient's symptom complex was considered including but not limited to postoperative pain, wound infection, hardware malalignment, muscle spasm, compression fracture, acute disc herniation. - Data Points Imaging Results: Imaging Impressions Lumbar Spine CT 06/02/18 17:09 Impression: Little if any change since the patient's postoperative MRI 4 days ago. Imaging: Discussed imaging studies w/ call worker Radiologist Laboratory Results: Laboratory Results 06/02/18 15:30 06/02/18 15:30 06/02/18 06/02/18 15:30 15:30 WBC 7.72 10^3/uL 10^3/uL (3.80-9.50) RBC 4.13 10^6/uL L 10^6/uL (4.40-6.38) Hgb 12.6 g/dL L g/dL (13.7-17.5) Hct 37.2 % L % (40.0-51.0) MCV 90.1 fL fL (81.5-99.8) MCH 30.5 pg pg (27.9-34.1) MCHC 33.9 g/dL g/dL (32.4-36.7) RDW 11.9 % % (11.5-15.2) Plt Count 286 10^3/uL 10^3/uL (150-400) MPV 10.0 fL fL (8.7-11.7) Neut % (Auto) 65.8 % % (39.3-74.2) Lymph % (Auto) 15.9 % % (15.0-45.0) [place] % (Auto) 17.6 % H % (4.5-13.0) Eos % (Auto) 0.1 % L % (0.6-7.6) Baso % (Auto) 0.3 % % (0.3-1.7) Nucleat RBC Rel Count 0.0 % % (0.0-0.2) Absolute Neuts (auto) 5.08 10^3/uL 10^3/uL (1.70-6.50) Absolute Lymphs (auto) 1.23 10^3/uL 10^3/uL (1.00-3.00) Absolute Monos (auto) 1.36 10^3/uL H 10^3/uL (0.30-0.80) Absolute Eos (auto) 0.01 10^3/uL L 10^3/uL (0.03-0.40) Absolute Basos (auto) 0.02 10^3/uL 10^3/uL (0.02-0.10) Absolute Nucleated RBC 0.00 10^3/uL 10^3/uL (0-0.01) Immature Gran % 0.3 % % (0.0-1.1) Immature Gran # 0.02 10^3/uL 10^3/uL (0.00-0.10) Sodium 133 mEq/L L mEq/L (135-145) Potassium 3.9 mEq/L mEq/L (3.3-5.0) Chloride 95 mEq/L L mEq/L (97-110) Carbon Dioxide 29 mEq/l mEq/l (22-31) Anion Gap 9 mEq/L mEq/L (6-14) BUN 10 mg/dL mg/dL (7-23) Creatinine 0.8 mg/dL mg/dL (0.7-1.3) Estimated GFR > 60 Glucose 108 mg/dL H mg/dL (70-100) Calcium 8.3 mg/dL L mg/dL (8.5-10.4) Total Bilirubin 0.8 mg/dL mg/dL (0.1-1.4) Conjugated Bilirubin 0.3 mg/dL mg/dL (0.0-0.5) Unconjugated Bilirubin 0.5 mg/dL mg/dL (0.0-1.1) AST 53 IU/L IU/L (17-59) ALT 56 IU/L IU/L (21-72) Alkaline Phosphatase 161 IU/L H IU/L (38-126) Total Protein 6.1 g/dL L g/dL (6.3-8.2) Albumin 3.1 g/dL L g/dL (3.5-5.0) Medications Given: Acetaminophen (Tylenol) 1,000 mg PO Q8HRS EUGENIA Stop: 11/29/18 21:59 Last Admin: 06/02/18 21:41 Dose: 1,000 mg Famotidine (Pepcid) 20 mg PO DAILY EUGENIA Stop: 11/29/18 20:14 Last Admin: 06/02/18 21:41 Dose: 20 mg Potassium Chloride/Sodium Chloride (Ns W/ 20 Kcl/L) 1,000 mls @ 75 mls/hr IV CONT EUGENIA Stop: 11/29/18 20:14 Last Admin: 06/02/18 21:41 Dose: 1,000 mls Methocarbamol (Robaxin) 750 mg PO TID EUGENIA Stop: 11/29/18 21:59 Last Admin: 06/02/18 21:41 Dose: 750 mg Morphine Sulfate (Ms Contin/Oramorph Sr) 30 mg PO BID EUGENIA Stop: 06/12/18 20:59 Last Admin: 06/02/18 21:41 Dose: 30 mg Morphine Sulfate (Morphine) 2 mg IVP Q1HR PRN PRN Reason: Pain, Severe Unable to Take PO Stop: 06/12/18 23:54 Last Admin: 06/02/18 23:40 Dose: 2 mg Discontinued Medications Diazepam (Valium) 5 mg IVP EDNOW ONE Stop: 06/02/18 16:39 Last Admin: 06/02/18 16:43 Dose: 5 mg Hydromorphone HCl (Dilaudid) 1 mg IVP EDNOW ONE Stop: 06/02/18 16:22 Last Admin: 06/02/18 16:35 Dose: 1 mg Hydromorphone HCl (Dilaudid) 0.5 mg IVP EDNOW ONE Stop: 06/02/18 18:03 Last Admin: 06/02/18 18:04 Dose: 0.5 mg Sodium Chloride (Ns) 1,000 mls @ 0 mls/hr IV ONCE ONE; Wide Open PRN Reason: Protocol Stop: 06/02/18 16:39 Last Admin: 06/02/18 16:43 Dose: 1,000 mls Morphine Sulfate (Ms Contin/Oramorph Sr) 30 mg PO ONCE ONE Stop: 06/02/18 19:39 Last Admin: 06/02/18 19:57 Dose: 30 mg Oxycodone HCl (Oxycodone Ir) 10 mg PO ONCE ONE Stop: 06/02/18 19:40 Last Admin: 06/02/18 19:45 Dose: 10 mg General Time Seen by Provider: 06/02/18 15:45 Initial Vital Signs: Initial Vital Signs Temperature (C) 37.3 C 06/02/18 15:41 Heart Rate 92 06/02/18 15:41 Respiratory Rate 18 06/02/18 15:41 Blood Pressure 124/84 H 06/02/18 15:41 O2 Sat (%) 93 06/02/18 15:41 O2 Delivery Mode Nasal Cannula O2 (L/minute) 2 Allergies/Adverse Reactions: No Known Drug Allergies Allergy (Unknown, Verified 06/02/18 16:32) Home Medications: Medication Instructions Recorded Diazepam [Valium 5 MG (*)] 5 mg PO Q8H PRN 06/02/18 Methocarbamol [Robaxin 750 mg (*)] 750 mg PO QID PRN 06/02/18 oxyCODONE IR [Oxycodone Ir (*)] 5 - 10 mg PO Q6H PRN 06/02/18 Departure - Departure Disposition: [facility] Inpatient Acute Clinical Impression: Right-sided low back pain with sciatica Qualifiers: Chronicity: acute Sciatica laterality: sciatica of right side Qualified Code(s) : M54.41 - Lumbago with sciatica, right side L3 vertebral fracture Qualifiers: Encounter type: initial encounter Fracture type: closed Fracture morphology: other fracture Qualified Code(s): S32.038A - Other fracture of third lumbar vertebra, initial encounter for closed fracture Condition: Fair Report Scribed for: Sydnee Mercer Report Scribed by: Lashaun Payne Date of Report: 06/02/18 Time of Report: 20:01
[2018-06-02] MEDS ORDERED: HYDROmorphONE/DILAUDID 2 MG/ML INJ IVP ONE ×2 (16:21→18:02)
[2018-06-02] MEDS ORDERED: NS 1,000 ML IV ONE (16:38)
[2018-06-02] MEDS ORDERED: DIAZEPAM 5 MG/ML 1 ML SYR IVP ONE (16:38)
[2018-06-02 16:49] LABS: PLATELET COUNT 286 10^3/uL (150-400)
[2018-06-02] MEDS ORDERED: HYDROmorphONE/DILAUDID 1 MG/ML INJ ONE (17:44)
--- NOTE | 2018-06-02 18:44 | GCON ---
DATE OF CONSULTATION: 06/02/2018 REASON FOR CONSULTATION: Terrible pain. HISTORY OF PRESENT ILLNESS: The patient is a 62-year-old who underwent surgery by Dr. Rider at L4-5, L5-S1 without complication about eight days ago. This was done, I believe, on May 25, and he remained in the hospital for a couple of nights and then went home. There were no compli cations from surgery, but as he went home, he developed increasing pain in the low back and on , developed pain severe enough that he underwent an MRI of the lumbar spine demonstrating evide nce of a compression deformity at L3 above the fusion at L4-5, L5-S1. There is no evidence of compli cation from the surgery. Over the last day, he has developed very excruciating pain in low back. He says that his legs are fine. He has no difficulty in the legs and even denies leg pain to me, altho ugh apparently he endorsed this to the ER physician. PHYSICAL EXAM: He is neuro intact. Good strength throughout the lower extremities. Any motion at a ll of the body causes excruciating pain in the low back. DIAGNOSTIC REVIEW: MRI of the lumbar spine done previously demonstrates an L3 compression deformity with a noncomplicated L4-5, L5-S1 fusion. Almost certainly, his pain is emanating from the L3 compre ssion deformity and I will discuss this with Dr. Rider and his team. Consideration could be given to a kyphoplasty if medical management alone does not suffice. It is also possible that he may require instrumentation around the area of the fracture. This is not a direct surgical complication , but appears to be an unrelated fracture above the fusion. We will discuss this with Dr. Eliza florez and continue to follow the patient while here at [facility]. /[id number]/MODL
[2018-06-02] MEDS ORDERED: morphINE SR 30 MG TAB PO ONE (19:38)
[2018-06-02] MEDS ORDERED: oxyCODONE IR 5 MG TAB PO ONE (19:39)
[2018-06-02] MEDS ORDERED: oxyCODONE IR 5 MG TAB ONE (19:40)
[2018-06-02] MEDS ORDERED: diphenhydrAMINE 25 MG CAP PO PRN (20:14)
[2018-06-02] MEDS ORDERED: NS W/ 20 KCl/L 1,000 ML IV SCH (20:15)
[2018-06-02] MEDS: ACETAMINOPHEN 500 MG TAB PO SCH (21:41)
[2018-06-02] MEDS: FAMOTIDINE 20 MG TAB PO SCH (21:41)
[2018-06-02] MEDS: METHOCARBAMOL 750 MG TAB PO SCH (21:41)
[2018-06-02] MEDS: morphINE SR 30 MG TAB PO SCH (21:41)
[2018-06-03] MEDS ORDERED: NS 1,000 ML IV SCH (03:30)
[2018-06-03 05:21] LABS: PLATELET COUNT 254 10^3/uL (150-400)
[2018-06-03] MEDS: ACETAMINOPHEN 500 MG TAB PO SCH ×3 (05:26→21:05)
[2018-06-03] MEDS ORDERED: ceFAZolin 2 GM/DEXTROSE 100 ML IV ONE ×2 (06:10→08:01)
--- NOTE | 2018-06-03 07:01 | GCON ---
DATE OF CONSULTATION: 06/03/2018 REFERRING PHYSICIAN: Dr. Cortez SOURCE OF DATA: Patient provides history, appears reliable. EMR was reviewed and case discussed with primary RN. CHIEF COMPLAINT: Fever and back pain. HISTORY OF PRESENT ILLNESS: This is a pleasant 62-year-old gentleman with a past medical history significant for chronic low back pain on chronic narcotic therapy who presented to the emergency department earlier yesterday with complaints of acute on chronic low back pain. The patient was recently discharged from the hospital status post TLIF of L4-5, L5-S1 with Dr. Rider. He was discharged on 05/31/2018. Patient reports that since his discharge, he has continued to have difficulties with mobilization. It has been quite difficult for him and has required a great amount of effort with development of severe pain. The patient had CT imaging completed in the emergency department, which showed hardware in good place and an L3 compression fracture which after review of records appears to have been known since January of 2018. The patient reports that he has had difficulty with mobilization since his discharge. Also difficulty with pain control. He also notes that he has been having intermittent subjective fevers and chills since he left for home and also has noted a nonproductive cough. The patient denies any dysuria or hematuria. He denies any rhinorrhea. He has a dry, itchy throat, but no pain or odynophagia. He denies any known skin infections and no open sores other than his postoperative site. He denies any dysuria, hematuria, but reports that he has constant urgency and frequency, which is not new. REVIEW OF SYSTEMS: 10 systems reviewed and negative except as noted above in HPI. ALLERGIES: No known drug allergies. HOME MEDICATIONS: Oxy IR 5-10 mg p.o. q.6 hours p.r.n., Robaxin 750 mg p.o. q.i.d. daily p.r.n., Valium 5 mg p.o. q.8 hours p.r.n. CURRENT ACTIVE MEDICATIONS: Tylenol 1000 mg p.o. q.8 hours p.r.n., Benadryl 25 mg p.o. q.6 hours p.r.n., famotidine 20 mg p.o. daily, methocarbamol 750 mg p.o. t.i.d., scheduled morphine (MS Contin) 30 mg p.o. twice daily, morphine sulfate 2 mg IV q.1 hour p.r.n., Oxy IR 10 mg p.o. q.6 hours p.r.n., potassium chloride with 20 of K at 75 mL/h. PAST MEDICAL HISTORY: Significant for chronic low back pain with chronic narcotics, palpitations. PAST SURGICAL HISTORY: Significant for right total hip arthroplasty in [place] arthroplasty in August 2017; lumbar TLIF L4-5, L5-S1 with Dr. Rider, rhinoplasty x2, hemorrhoidectomy. FAMILY HISTORY: Patient reports that it is unknown to him and his mother does not share those details. SOCIAL HISTORY: He denies any tobacco, drugs, or alcohol use. He is and lives with his . CODE STATUS: Full. PHYSICAL EXAMINATION: VITAL SIGNS: Upon arrival to the emergency department approximately 1541 yesterday, blood pressure 128/84, heart rate 92, respiratory rate 18, O2 saturation 93% on 2 L by nasal cannula with a temperature of 37.3. Vital signs at approximately 2100, blood pressure 150/85, heart rate 90, respiratory rate 16, O2 saturation 91% on 1 L by nasal cannula, and temperature 38.7. Vitals currently available blood pressure 117/84, heart rate is 88, respiratory rate 16, O2 saturation 94% on supplemental oxygen 2 L by nasal cannula, temperature 37.9. GENERAL: No acute distress. Pleasant adult gentleman, appears slightly older than stated age, quite fatigued, lies quite still in bed. HEAD: Normocephalic, atraumatic. EYES: Extraocular muscles are grossly intact. Pupils equal, round, with decreased reactivity to light bilaterally but symmetric. No scleral icterus or conjunctival injection. ENT: Mucous membranes appear quite dry. Minimal oropharyngeal erythema. No exudates. NECK: Supple. Trachea midline. CV: Regular rate and rhythm. No murmurs, rubs, or gallops appreciated. RESPIRATORY: Decreased inspiratory effort with diminished breath sounds in the left lower base, but no wheezes, rales, or rhonchi noted diffusely. Unlabored breathing. Nasal cannula in place. ABDOMEN: Positive bowel sounds. Soft, nontender to palpation. No rebound, guarding, or masses appreciated. : No suprapubic tenderness to palpation. No [place] catheter in place. EXTREMITIES: No cyanosis, clubbing, or edema appreciated. Patient with 1+ pedal pulses bilaterally and symmetric. MUSCULOSKELETAL: Grossly nonfocal. Limited exam of the lower extremity secondary to complaints of pain. The patient notes increasing pain with movement of upper or lower extremities. He is able to move all the distal extremities with generalized weakness. Requested that we turn the patient so that I could evaluate his operative site which has been bandaged. The patient due to pain declined exam at this time, knowing that he will have to have a repeat exam, repeat turning with the neurosurgical team service visiting him this morning. Patient is significantly concerned regarding exacerbation of his pain despite having pre-dosed him with morphine a few moments before we were about to turn him. The patient reports that he is absolutely unable to stand up due to pain and generalized weakness. NEURO: Sensation intact to upper and lower extremities. Nonfocal exam. No facial drooping. Movement as noted above. PSYCH: Affect slightly flat but patient is pleasant and cooperative. Thought process, content, and questions are appropriate. LABORATORY STUDIES: WBC initially 7.72 now 6.90, H and H are 11.8 and 35.1, MCV 91.2, platelet count 254. No bands. Monocyte percent 18.8. VBG lactic is 0.8. Sodium 133, potassium 3.9, chloride 95, CO2 29, anion gap 9, BUN 10, creatinine 0.8, GFR greater than 60, glucose 108, calcium is 8.3, total bilirubin 0.8, ALT is 56, AST is 53, alkaline phosphatase is 161, total protein 6.1, albumin 3.1. IMAGING: CT lumbar spine: No acute changes compared to patient's postoperative MRI 4 days ago. No obvious change of mild superior endplate concavity of L2 or the moderate L3 biconcave compression fracture. L3 vertebral body is diffusely sclerotic, associated with stable mild retropulsion of the posterior corners. Moderate central canal stenosis in the lower margin of the vertebral body similar to recent MRI. ASSESSMENT AND PLAN: A pleasant 62-year-old gentleman who is status post a transforaminal lumbar interbody fusion L4-5, L5-S1 on 05/26/2018, so he is postop day #8 at this point, who has been admitted with acute on chronic back pain with a new development of fevers. Hospitalist consultation for further evaluation of fevers and medical management. 1. Fevers. The patient does endorse some coughing, nonproductive. He has not been mobilizing significantly since his discharge. He did spike a temperature. His lactate is negative. His heart rate is normal. White count is also normal. High suspicion for possibility of atelectasis versus developing pneumonia, although patient has no white count. We will plan to get a 2 view x- ray of this morning. Also, the patient reports a chronic history of urgency and frequency but no dysuria. We will plan to check a UA. Additionally discussed with the patient importance of checking his wound site. He did decline the exam, and so, we will defer to the neurosurgical team for full evaluation of the wound or reattempt in the morning once his pain is better controlled. Repeat CT did not indicate any collections of fluid or evidence of infectious process. There is some postoperative gas noted. Review of previous provider notes indicate that patient's bandage site was dry and clean without any evidence of drainage. 2. Acute on chronic low back pain. Pain management as per the primary team. Patient has methocarbamol, MS Contin, morphine, Oxy available for pain and also did receive a dose of Valium. The patient appears comfortable, so long as he is not moving. 3. Anemia, likely related to postoperative status but not acute. No evidence of active bleeding. 4. Hyponatremia likely secondary to some hypovolemia. Patient does appear quite dry. He is receiving intravenous fluid supplementation. Repeat BMP this morning. 5. Hypocalcemia is likely related to patient's hypoalbuminemia, and we will monitor his calcium and replace if needed. 6. Generalized weakness and deconditioning, likely multifactorial including pain, atelectasis, fever, fatigue, postoperative status. 7. Fluid, electrolyte, nutrition. Intravenous fluids as noted above. Electrolytes are adequately replaced at this time. We will monitor and replace if needed. Diet as per primary team. 8. Prophylaxis. Sequential compression devices and anticoagulation as per primary team. 9. Code status. Full. 10. Disposition. Patient admitted to observation at this time as per primary team, but he is quite limited with his mobility. Will need to reassess in the morning once we can achieve increased pain control and further evaluation of this fever, but may require additional days of hospital stay. /[id number]/MODL MTDD
[2018-06-03] MEDS ORDERED: CHLORHEXIDINE GLUC HIBICLENS 118 ML BTL TP ONE (07:23)
[2018-06-03] MEDS ORDERED: IOPAMIDOL (ISOVUE-M 300) 15 ML VIAL ONE ×3 (07:23→08:11)
[2018-06-03] MEDS ORDERED: EPINEPHrine 1 MG/ML INJ ONE (07:23)
[2018-06-03] MEDS ORDERED: BUPIVACAINE 0.25% 30 ML SDV ONE (07:23)
[2018-06-03] MEDS ORDERED: BACITRACIN 50,000 UNITS/10 ML SYR IRR ONE (07:24)
--- NOTE | 2018-06-03 07:44 | NEUSURGPN ---
Assessment/Plan: A: 62 yo M 1 week s/p L4-S1 TLIF with new subacute L3 compression fx, admitted for pain control P: Discussed risks/benefits and written informed consent obtained to proceed with L3 Kyphoplasty with Dr Hale this am. Discussed risks including paralysis and cement migration. 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 D/w Dr Hale Call NS with any issues Subjective: Pt resting in bed, c/o pain in low back especially with movement of RLE Objective: AAOx3 NAD VSS MAEx4 Motor 5/5 BLE - pain with movement of RLE +LT Urinary Catheter in Place: No - Physician Discussed Patient with : [facility] Neurosurgery Physical Exam - Vitals, I&O, Labs I and O 06/02/18 06/03/18 06/04/18 05:59 05:59 05:59 Intake Total 538 Output Total 250 Balance 288 Weight 79.379 kg Intake: IV Intake (ml) 538 Output: Urine (ml) 250 Urinal 200 Other: Number of Voids Urinal 1 Vital Signs Temp Pulse Resp BP Pulse Ox 37.1 C 90 18 117/84 H 92 06/03/18 07:19 06/03/18 07:19 06/03/18 07:19 06/03/18 07:19 06/03/18 07:19 Laboratory Results 06/03/18 05:03 06/03/18 05:03 ICD10 Worksheet Patient Problems: Problems Problem Status Onset L3 vertebral fracture Acute Right-sided low back pain with sciatica Acute Fracture of femoral neck, right, closed Acute Fusion of spine of lumbar region Acute
--- NOTE | 2018-06-03 07:56 | PDMN ---
Medical Necessity Medical necessity: MCG: GRG musculoskeletal disease : back pain recent TLIF:, MRI shows L3 compression fx. above previous TLIF doesn't appear related to recent sgy- severe pain with movement, anticipate > 2 MN ongoing med nec care , further eval of L3 fx, and poss surgical intervention, IV pain meds
[2018-06-03] MEDS ORDERED: MIDAZOLAM 2 MG/2 ML VIAL ONE (07:59)
[2018-06-03] MEDS ORDERED: MIDAZOLAM 2 MG/2 ML VIAL IVP ONE (07:59)
--- NOTE | 2018-06-03 08:00 | PDANEPAE ---
ANE History of Present Illness compression fx here for kypho ANE Past Medical History - Cardiovascular History Hx Hypertension: No Hx Arrhythmias: No Hx Chest Pain: No Hx Coronary Artery / Peripheral Vascular Disease: No Hx CHF / Valvular Disease: No Hx Palpitations: No Cardiovascular History Comment: SYNCOPE ISSUE 20 PLUS YRS AGO. WORK UP NEG - Pulmonary History Hx COPD: No Hx Asthma/Reactive Airway Disease: No Hx Recent Upper Respiratory Infection: No Hx Oxygen in Use at Home: No Hx Sleep Apnea: Yes Sleep Apnea Screening Result - Last Documented: Positive - Neurologic History Hx Cerebrovascular Accident: No Hx Seizures: No Hx Dementia: No - Endocrine History Hx Diabetes: No - Renal History Hx Renal Disorders: No - Liver History Hx Hepatic Disorders: No - Neurological & Psychiatric Hx Hx Neurological and Psychiatric Disorders: No - Cancer History Hx Cancer: Yes Cancer History Comment: MELANOMA - Congenital Disorder History Hx Congenital Disorders: No - GI History Hx Gastrointestinal Disorders: No - Other Health History Other Health History: DJD - Chronic Pain History Chronic Pain: Yes (LUMBAR REGION) - Surgical History Prior Surgeries: RT TOTAL HIP 08/2017. NASAL. HEMORRHOIDS. SKIN MELANOMA ANE Review of Systems Review of Systems: - Exercise capacity Exercise capacity: >=4 METS ANE Patient History - Allergies Allergies/Adverse Reactions: No Known Drug Allergies Allergy (Unknown, Verified 06/02/18 16:32) - Home Medications Home Medications: Diazepam [Valium 5 MG (*)] 5 mg PO Q8H PRN 06/02/18 [Last Taken Unknown] Methocarbamol [Robaxin 750 mg (*)] 750 mg PO QID PRN 06/02/18 [Last Taken ] oxyCODONE IR [Oxycodone Ir (*)] 5 - 10 mg PO Q6H PRN 06/02/18 [Last Taken ] - NPO status NPO Since - Liquids (Date): 06/03/18 NPO Since - Liquids (Time): 00:00 NPO Since - Solids (Date): 06/03/18 NPO Since - Solids (Time): 00:00 - Anes Hx Anes Hx: no prior problems - Smoking Hx Smoking Status: Never smoked - Alcohol Use Alcohol Use: Rarely - Family Anes Hx Family Anes Hx: none ANE Labs/Vital Signs - Labs Result Diagrams: 06/03/18 05:03 06/03/18 05:03 - Vital Signs Vital Signs: reviewed preoperatively; see RN documention for details Blood Pressure: 117/84 Heart Rate: 90 Respiratory Rate: 18 O2 Sat (%): 92 Height: 182.88 cm Weight: 79.379 kg ANE Physical Exam - Airway Neck exam: FROM Mallampati Score: Class 2 Mouth exam: normal dental/mouth exam - Pulmonary Pulmonary: no respiratory distress, clear to auscultation - Cardiovascular Cardiovascular: regular rate and rhythym, no murmur, rub, or gallop - ASA Status ASA Status: II ANE Anesthesia Plan Anesthesia Plan: general endotracheal anesthesia
[2018-06-03] MEDS ORDERED: fentaNYL 100 MCG/2 ML INJ ONE ×2 (08:03→09:45)
[2018-06-03] MEDS ORDERED: LIDOCAINE 2% 100 MG/5 ML SYR ONE (08:04)
[2018-06-03] MEDS ORDERED: PROPOFOL 200 MG/20 ML VIAL ONE (08:04)
[2018-06-03] MEDS ORDERED: DEXAMETHASONE 4 MG/ML VIAL ONE (08:38)
[2018-06-03] MEDS ORDERED: ONDANSETRON 4 MG/2 ML VIAL ONE (08:38)
[2018-06-03] MEDS ORDERED: fentaNYL 100 MCG/2 ML INJ IVP PRN (09:26)
[2018-06-03] MEDS ORDERED: HYDROCODONE/APAP 5/325 TAB PO PRN (09:26)
[2018-06-03] MEDS ORDERED: ONDANSETRON 4 MG/2 ML VIAL IVP PRN (09:26)
[2018-06-03] MEDS ORDERED: oxyCODONE IR 5 MG TAB PO PRN (09:26)
[2018-06-03] MEDS ORDERED: NALOXONE HCL 0.4 MG/ML INJ IVP PRN (09:26)
[2018-06-03] MEDS: METHOCARBAMOL 750 MG TAB PO SCH ×3 (11:05→21:05)
[2018-06-03] MEDS: morphINE SR 30 MG TAB PO SCH ×2 (11:05→21:05)
[2018-06-03] MEDS: FAMOTIDINE 20 MG TAB PO SCH (11:07)
[2018-06-03] MEDS: oxyCODONE IR 5 MG TAB PO PRN (11:14)
--- NOTE | 2018-06-03 12:08 | GOP ---
DATE OF OPERATION: 06/03/2018 SURGEON: Seng Hale MD REGISTERED NURSE FLOAT POOL: None. ANESTHESIA: General. PREOPERATIVE DIAGNOSIS: 1. L3 compression fracture with a history of prior fusion L4 through S1. 2. Intractable back pain. POSTOPERATIVE DIAGNOSIS: 1. L3 compression fracture with a history of prior fusion L4 through S1. 2. Intractable back pain. PROCEDURE PERFORMED: 1. Extrapedicular right-sided L3 kyphoplasty with 2 mL of cement from the Kypon system. 2. Use of intraoperative 3D Stealth navigation. 3. Use of intraoperative fluoroscopy, less than 1 hour physician time. FINDINGS: per imaging SPECIMENS: None. ESTIMATED BLOOD LOSS: 1 mL. INDICATIONS: The patient is a 62-year-old gentleman who underwent a prior lumbar fusion L4 through S1 with Dr. Rider. He presented to the hospital with intractable back pain. Imaging demonstrated progression of the compression deformity and fracture at the L3 level. L2 appeared to be a stable compression deformity from January and therefore was not felt to be a source of the patient's pain. After discussion of the risks, benefits, and alternatives and given the fact the patient was refractory to medical intervention, we decided to proceed forth with surgical intervention at the L3 level. DESCRIPTION OF PROCEDURE: The patient was brought to the operating theater and underwent general endotracheal anesthesia without complications. He had Venodynes, BETTINA hose, and the appropriate lines placed by Anesthesia. He was flipped prone onto the Wesley table and all bony processes inspected and padded. The lower lumbar region was prepped and draped in usual sterile surgical fashion. A time-out was completed per protocol and the patient received antibiotics within 1 hour of incision. A small midline incision was made over the L1-L2 level after being infiltrated with Marcaine with epinephrine. Tissues were taken down along the spinous process in a subperiosteal manner. The 3D Stealth navigation clamp post was attached to the spinous process of L2. We then completed a 3D Stealth navigation spin. Using 3D navigation and used the RITA needle, the L3 vertebral body was cannulated in a transpedicular manner from the right side. This was cannulated across the midline and into the fracture site itself. A small K- wire was then placed into the fracture site and the location confirmed with AP and lateral x-rays. We then used the hand drill to drill a small core through the fracture site across the midline and into the fracture. We inflated a balloon using live AP and lateral x-rays in the fracture site to create a cavity. After creating the cavity, we injected approximately 2 mL of cement from Kypon system using direct AP and lateral fluoroscopic images until we felt that we had good pedicular filling [id number], as well as the cranial caudally across the fracture site. Once we saw that there was some cement migration dorsally, we stopped. There was no evidence of any cement migration outside of the bone or into the vascular system. At this point, the delivery system was withdrawn and final AP and lateral x- rays demonstrated good placement of the cement. The wounds were irrigated copiously with bacitracin irrigation and closed in multiple layers using Vicryl sutures for deep layers and Dermabond for skin. The patient's wounds were dressed sterilely. He was flipped supine onto the transfer cart and was taken to recovery room. The patient was still asleep at the time of this dictation, there were no complications. COMPLICATION: None. /[id number]/MODL MTDD
--- NOTE | 2018-06-03 12:35 | NEUSURGPN ---
Assessment/Plan: POD # 0 s/p L3 kyphoplasty - patient doing well with improved pain in his back and legs - admit back to the surgical floor and d/c if pain controlled - activity ad sara Subjective: pain controlled; no new complaints Objective: Awake and alert following commands in all 4 extremities - full strength in Bilateral UE/LE throughout - intact sensation throughout B LE/UE - dressing C/D/I - Physician Patient Seen by : Geoffrey Neurosurgery Physical Exam - Vitals, I&O, Labs I and O 06/02/18 06/03/18 06/04/18 05:59 05:59 05:59 Intake Total 538 520 Output Total 250 305 Balance 288 215 Weight 79.379 kg 79.379 kg Intake: Oral (ml) 20 IV Intake (ml) 538 500 Output: Urine (ml) 250 300 Urinal 200 300 Estimated Blood Loss (ml) 5 Other: Number of Voids Urinal 1 Vital Signs Temp Pulse Resp BP Pulse Ox 36.6 C 72 16 95/67 L 92 06/03/18 11:31 06/03/18 11:31 06/03/18 11:31 06/03/18 11:31 06/03/18 11:31 Laboratory Results 06/03/18 05:03 06/03/18 05:03 ICD10 Worksheet Patient Problems: Problems Problem Status Onset L3 vertebral fracture Acute Right-sided low back pain with sciatica Acute Fracture of femoral neck, right, closed Acute Fusion of spine of lumbar region Acute
--- NOTE | 2018-06-03 15:06 | ASMTCMCOM ---
CM Note CM Note Notes: Pt came to ED for back pain, had recent lumbar fusion. Pt had kypho today. Pt open with [facility] for PT. PT ordered. Anticipate pt will be able to d/c with resumption of [facility] PT, CM to follow. Date Signed: 06/03/2018 03:05 PM Electronically Signed By:HITESH Blake
--- NOTE | 2018-06-03 15:07 | HOSPPROG ---
Hospitalist Progress Note Assessment/Plan: [facility] Patient Name: CARLOS ENRIQUE SHELL III Rpt#: [id number] Unit Number: [id number] Attending/ER Physician: Sydnee Mercer MD Patient Type: [facility]EL ER Adm Date/Source: 06/02/18 EMR Discharge Date: Primary Carrier: [employer] Patient presented to the ER with severe back pain. He underwent recent surgery at L4-5, L5-S1 without complications. He went home and was having increasing pain. He had a MRI of the spine showing a compression deformity at L3 above the fusion. Today he had a kyphoplasty to see if this would help alleviate his pain. The hospitalist were asked to evaluate him for fevers. He shared today he had this once and since has been afebrile, he doesn't feel ill and his main complaint is his back. *fevers -none throughout the day -will get a portable chest xay -has no leukocytosis, UA is fine, lactate stable *acute on chronic low back pain -s/p kyphoplasty today -not in pain during my evaluation *chronic pain on continuous chronic opiates -med resumed *anemia -stable *hyponatremia -improved *hypocalcemia -check an ionized in the morning *Plan: will see how he does overnight. Subjective: Carlos Enrique is not c/o pain, but is concerned about the pain returning. Objective: Vital Signs Temp Pulse Resp BP Pulse Ox 36.6 C 88 16 110/82 H 91 L 06/03/18 13:40 06/03/18 13:40 06/03/18 13:40 06/03/18 13:40 06/03/18 13:40 Laboratory Results 06/03/18 05:03 06/03/18 05:03 06/02/18 06/03/18 06/04/18 05:59 05:59 05:59 Intake Total 538 1020 Output Total 250 905 Balance 288 115 - Physical Exam Constitutional: uncomfortable Eyes: PERRL Ears, Nose, Mouth, Throat: hearing normal Cardiovascular: regular rate and rhythym Respiratory: no respiratory distress Gastrointestinal: normoactive bowel sounds Skin: warm Neurologic: AAOx3 Psychiatric: interacting appropriately ICD10 Worksheet Patient Problems: Problems Problem Status Onset L3 vertebral fracture Acute Right-sided low back pain with sciatica Acute Fracture of femoral neck, right, closed Acute Fusion of spine of lumbar region Acute
[2018-06-03] MEDS ORDERED: LACTULOSE 20 GM/30 ML UDCUP PO PRN (17:51)
[2018-06-03] MEDS ORDERED: MAGNESIUM HYDROXIDE 30 ML UDCUP PO PRN (17:51)
[2018-06-03] MEDS ORDERED: BISACODYL 10 MG SUPP PR PRN (17:51)
[2018-06-03] MEDS: POLYETHYLENE GLYCOL 3350 17 GM PKT PO SCH (18:53)
[2018-06-03] MEDS: SENNOSIDES/DOCUSATE SODIUM TAB PO SCH (21:05)
--- NOTE | 2018-06-04 07:17 | NEUSURGPN ---
Date of Surgery: 06/03/18 Post Op Day: 1 Assessment/Plan: Assessment: 62 yo male that is POD # 1 s/p L3 kyphoplasty Plan: -s/p L3 kyphoplasty: pt states that lower back is better with improvement in pain in legs and back. States RLE is better but has some pain in the LLE now -will trial gabapentin -PT/OT-CPM -continue with IP today and plan for dc tomorrow pending therapies and case management -call with any questions or concerns -pt understands and agrees -overall patient doing better with improved pain in his back and legs -activity ad sara -call with any questions or concerns -d/w Dr Hale Subjective: Awake and alert. NAD. Eating/drinking and voiding. No f/c/n/v/d. No cantrell/neck/ chest/abd or gu complaints. Pt with improvement in the RLE complaints. He has some LLE complaints now. Objective: AAO x 3, PERRLA/EOMI no droop CN 2-12 grossly intact +lt touch 5/5 BUE/BLE = CDI Neuro Check Frequency: per routine Urinary Catheter in Place: No - Physician Discussed Patient with Dr.: Hale Neurosurgery Physical Exam - Vitals, I&O, Labs I and O 06/03/18 06/04/18 06/05/18 05:59 05:59 05:59 Intake Total 538 4670 Output Total 250 4655 Balance 288 15 Weight 79.379 kg 79.379 kg Intake: Oral (ml) 4170 IV Intake (ml) 538 500 Output: Urine (ml) 250 4650 Urinal 200 4650 Estimated Blood Loss (ml) 5 Other: Intake Quantity Yes Sufficient Number of Voids Urinal 1 4 Vital Signs Temp Pulse Resp BP Pulse Ox 36.3 C 74 14 123/87 H 96 06/04/18 04:00 06/04/18 04:00 06/04/18 04:00 06/04/18 04:00 06/04/18 04:00 Laboratory Results 06/03/18 05:03 06/03/18 05:03 ICD10 Worksheet Patient Problems: Problems Problem Status Onset L3 vertebral fracture Acute Right-sided low back pain with sciatica Acute Fracture of femoral neck, right, closed Acute Fusion of spine of lumbar region Acute
[2018-06-04] MEDS: SENNOSIDES/DOCUSATE SODIUM TAB PO SCH ×2 (09:07→21:39)
[2018-06-04] MEDS: morphINE SR 30 MG TAB PO SCH ×2 (09:07→21:40)
[2018-06-04] MEDS: ACETAMINOPHEN 500 MG TAB PO SCH ×3 (09:08→21:39)
[2018-06-04] MEDS: FAMOTIDINE 20 MG TAB PO SCH (09:09)
[2018-06-04] MEDS: METHOCARBAMOL 750 MG TAB PO SCH ×3 (09:09→21:40)
[2018-06-04] MEDS: GABAPENTIN 300 MG CAP PO SCH ×4 (09:09→21:40)
[2018-06-04] MEDS: POLYETHYLENE GLYCOL 3350 17 GM PKT PO SCH (09:10)
[2018-06-04] MEDS: oxyCODONE IR 5 MG TAB PO PRN ×2 (12:30→16:34)
--- NOTE | 2018-06-04 13:09 | HOSPPROG ---
Hospitalist Progress Note Assessment/Plan: Patient presented to the ER with severe back pain. He underwent recent surgery at L4-5, L5-S1 without complications. He went home and was having increasing pain. He had a MRI of the spine showing a compression deformity at L3 above the fusion. Yesterday he had a kyphoplasty to see if this would help alleviate his pain. The hospitalist were asked to evaluate him for fevers. He shared today he had this once and since has been afebrile, he doesn't feel ill and his main complaint is his back. *fevers -one time only -no further workup needed -chest xay stable -has no leukocytosis, UA is fine, lactate stable *acute on chronic low back pain -s/p kyphoplasty -significant pain today *chronic pain on continuous chronic opiates -med resumed *anemia -stable *hyponatremia -improved *hypocalcemia -ionized fine *Plan: will see how he does overnight. -DC per nsg and pain control Subjective: Having more pain today. No other issues. Feels fine other then pain. Objective: Vital Signs Temp Pulse Resp BP Pulse Ox 36.3 C 87 16 115/84 H 98 06/04/18 11:52 06/04/18 11:52 06/04/18 11:52 06/04/18 11:52 06/04/18 11:52 Laboratory Results 06/03/18 05:03 06/03/18 05:03 06/03/18 06/04/18 06/05/18 05:59 05:59 05:59 Intake Total 538 4670 1200 Output Total 250 4655 1550 Balance 288 15 -350 - Physical Exam Constitutional: appears nourished, uncomfortable, No obese Eyes: PERRL, anicteric sclera, EOMI Ears, Nose, Mouth, Throat: moist mucous membranes, hearing normal, ears appear normal Cardiovascular: No JVD, No tachycardia, No edema Respiratory: no respiratory distress, no rales or rhonchi, reduced air movement Gastrointestinal: normoactive bowel sounds, No tenderness, No ascites Skin: warm, normal color, No mottled Musculoskeletal: no joint effusions, pain with ROM, generalized weakness Neurologic: AAOx3 Psychiatric: interacting appropriately, not anxious, not encephalopathic, thought process linear ICD10 Worksheet Patient Problems: Problems Problem Status Onset Fracture of femoral neck, right, closed Acute Fusion of spine of lumbar region Acute Right-sided low back pain with sciatica Acute L3 vertebral fracture Acute
[2018-06-05] MEDS: oxyCODONE IR 5 MG TAB PO PRN ×4 (02:37→23:42)
[2018-06-05] MEDS: ACETAMINOPHEN 500 MG TAB PO SCH ×4 (06:02→21:20)
[2018-06-05] MEDS: POLYETHYLENE GLYCOL 3350 17 GM PKT PO SCH (07:58)
[2018-06-05] MEDS: SENNOSIDES/DOCUSATE SODIUM TAB PO SCH ×2 (07:58→21:20)
[2018-06-05] MEDS: METHOCARBAMOL 750 MG TAB PO SCH ×3 (07:58→21:20)
[2018-06-05] MEDS: GABAPENTIN 300 MG CAP PO SCH ×3 (07:58→21:20)
[2018-06-05] MEDS: FAMOTIDINE 20 MG TAB PO SCH (07:58)
[2018-06-05] MEDS: morphINE SR 30 MG TAB PO SCH (07:59)
--- NOTE | 2018-06-05 08:00 | NEUSURGPN ---
Date of Surgery: 06/03/18 Post Op Day: 2 Assessment/Plan: Assessment: 62 yo male that is POD # 2 s/p L3 kyphoplasty Plan: -s/p L3 kyphoplasty: pt states that lower back is better with improvement in pain in legs and back. States has alternating RLE/LLE now-gabapentin is helping -pt is voiding fine, passing gas -continue with gabapentin -PT/OT-CPM -pt requesting rehab-defer to case management and therapies -continue with IP today and plan for rehab at pts request -call with any questions or concerns -pt understands and agrees -overall patient doing better with improved pain in his back and legs but continues to need IP care until rehab place can be addressed/found -activity ad sara -call with any questions or concerns -d/w Dr Hale Subjective: Awake and alert. NAD. Eating/drinking and voiding. No f/c/n/v/d. No cantrell/neck/ chest/abd or gu complaints. Objective: AAO x 3, PERRLA/EOMI no droop CN 2-12 grossly intact +lt touch 5/5 BUE/BLE = CDI Neuro Check Frequency: per routine Urinary Catheter in Place: No - Physician Discussed Patient with : Geoffrey Neurosurgery Physical Exam - Vitals, I&O, Labs I and O 06/04/18 06/05/18 06/06/18 05:59 05:59 05:59 Intake Total 4670 5250 Output Total 4655 4825 Balance 15 425 Weight 79.379 kg Intake: Oral (ml) 4170 5250 IV Intake (ml) 500 Output: Urine (ml) 4650 4825 Urinal 4650 4825 Estimated Blood Loss (ml) 5 Other: Intake Quantity Yes Yes Sufficient Number of Voids Urinal 4 1 Vital Signs Temp Pulse Resp BP Pulse Ox 36.7 C 67 16 109/74 92 06/05/18 03:58 06/05/18 03:58 06/05/18 03:58 06/05/18 03:58 06/05/18 03:58 Laboratory Results 06/03/18 05:03 06/03/18 05:03 ICD10 Worksheet Patient Problems: Problems Problem Status Onset L3 vertebral fracture Acute Right-sided low back pain with sciatica Acute Fracture of femoral neck, right, closed Acute Fusion of spine of lumbar region Acute
[2018-06-05] MEDS: ENOXAPARIN 40 MG/0.4 ML SYR SC SCH (10:00)
--- NOTE | 2018-06-05 10:40 | HOSPPROG ---
Hospitalist Progress Note Assessment/Plan: Patient presented to the ER with severe back pain. He underwent recent surgery at L4-5, L5-S1 without complications. He went home and was having increasing pain. He had a MRI of the spine showing a compression deformity at L3 above the fusion. Yesterday he had a kyphoplasty to see if this would help alleviate his pain. The hospitalist were asked to evaluate him for fevers. He shared today he had this once and since has been afebrile, he doesn't feel ill and his main complaint is his back. *fevers -one time only -no further workup needed -chest xay stable -has no leukocytosis, UA is fine, lactate stable *acute on chronic low back pain -s/p kyphoplasty -less pain today *chronic pain on continuous chronic opiates -med resumed *anemia -stable *hyponatremia -improved *hypocalcemia -ionized fine *Plan: will see how he does overnight. -DC per nsg and pain control -needs rehab Subjective: Still "freezing up" Able to move better today. No other issues. Objective: Vital Signs Temp Pulse Resp BP Pulse Ox 36.9 C 80 18 131/99 H 96 06/05/18 08:09 06/05/18 08:09 06/05/18 08:09 06/05/18 08:09 06/05/18 08:09 Laboratory Results 06/03/18 05:03 06/03/18 05:03 06/04/18 06/05/18 06/06/18 05:59 05:59 05:59 Intake Total 4670 5250 Output Total 6680 3911 625 Balance 15 205 -973 - Physical Exam Constitutional: appears nourished, uncomfortable Eyes: PERRL, anicteric sclera Ears, Nose, Mouth, Throat: moist mucous membranes, hearing normal Cardiovascular: No JVD, No edema Respiratory: no respiratory distress, reduced air movement Gastrointestinal: No tenderness, No ascites Skin: warm, normal color Musculoskeletal: pain with ROM, muscular tenderness, abnormal gait, generalized weakness Neurologic: AAOx3 Psychiatric: interacting appropriately, not anxious, not encephalopathic ICD10 Worksheet Patient Problems: Problems Problem Status Onset Fracture of femoral neck, right, closed Acute Fusion of spine of lumbar region Acute Right-sided low back pain with sciatica Acute L3 vertebral fracture Acute
--- NOTE | 2018-06-05 15:05 | ASMTCMCOM ---
CM Note CM Note Notes: PT/OT recommending Acute Rehab. Order is in for Acute Rehab. Possible discharge Wednesday after Ins has been checked. Date Signed: 06/05/2018 03:04 PM Electronically Signed By:Salina Solis LCSW
[2018-06-05] MEDS: morphINE SR 15 MG TAB PO SCH (21:21)
[2018-06-06] MEDS: oxyCODONE IR 5 MG TAB PO PRN ×3 (04:19→17:39)
[2018-06-06] MEDS: ACETAMINOPHEN 500 MG TAB PO SCH ×4 (05:36→22:36)
[2018-06-06] MEDS: morphINE SR 15 MG TAB PO SCH ×3 (08:17→22:37)
[2018-06-06] MEDS: SENNOSIDES/DOCUSATE SODIUM TAB PO SCH ×2 (08:17→22:37)
[2018-06-06] MEDS: METHOCARBAMOL 750 MG TAB PO SCH ×3 (08:18→22:36)
[2018-06-06] MEDS: ENOXAPARIN 40 MG/0.4 ML SYR SC SCH (08:18)
[2018-06-06] MEDS: GABAPENTIN 300 MG CAP PO SCH (08:18)
[2018-06-06] MEDS: FAMOTIDINE 20 MG TAB PO SCH (08:18)
--- NOTE | 2018-06-06 08:31 | NEUSURGPN ---
Assessment/Plan: Assessment: 62 yo male that is POD # 3 s/p L3 kyphoplasty Plan: -s/p L3 kyphoplasty: Lower back is better with improvement in pain in legs and back. -Will increase gabapentin -PT/OT-CPM -pt requesting rehab-defer to case management and therapies -call with any questions or concerns -pt understands and agrees -Worsening posterior gluteal pain - Wound care consult for low back incision -call with any questions or concerns -d/w Dr Castillo Subjective: posterior gluteal pain bilaterally. Objective: AAO x 3, +lt touch 5/5 BUE/BLE = Incision with some fibrinous sloughing - Physician Discussed Patient with : Adry Neurosurgery Physical Exam - Vitals, I&O, Labs I and O 06/05/18 06/06/18 06/07/18 05:59 05:59 05:59 Intake Total 5250 2800 Output Total 4825 2575 Balance 425 225 Intake: Oral (ml) 5250 2800 Output: Urine (ml) 4825 2575 Urinal 4825 2575 Other: Intake Quantity Yes Yes Sufficient Number of Voids Urinal 1 1 Number of Stools Urinal 2 Vital Signs Temp Pulse Resp BP Pulse Ox 35.7 C L 87 14 132/94 H 95 06/06/18 08:00 06/06/18 08:00 06/06/18 08:00 06/06/18 08:00 06/06/18 08:00 Laboratory Results 06/03/18 05:03 06/03/18 05:03 ICD10 Worksheet Patient Problems: Problems Problem Status Onset L3 vertebral fracture Acute Right-sided low back pain with sciatica Acute Fracture of femoral neck, right, closed Acute Fusion of spine of lumbar region Acute
[2018-06-06] MEDS ORDERED: GABAPENTIN 100 MG CAP PO ONE (09:15)
--- NOTE | 2018-06-06 10:51 | HOSPPROG ---
Hospitalist Progress Note Assessment/Plan: [facility] Patient Name: CARLOS ENRIQUE SHELL III Rpt#: [id number] Unit Number: [id number] Attending/ER Physician: Sydnee Mercer MD Patient Type: [facility] ER Adm Date/Source: 06/02/18 EMR Discharge Date: Primary Carrier: [employer] Patient presented to the ER with severe back pain. He underwent recent surgery at L4-5, L5-S1 without complications. He went home and was having increasing pain. He had a MRI of the spine showing a compression deformity at L3 above the fusion. He had a kyphoplasty to see if this would help alleviate his pain. The hospitalist were asked to evaluate him for fevers. *fevers -one time only -no further workup needed -chest xay stable -has no leukocytosis, UA is fine, lactate stable *acute on chronic low back pain -s/p kyphoplasty - Carlos Enrique is c/o bilateral gluteal pain and sciatica pain radiating down his right leg -he is concerned about walking, doing ADL's -neurosurgery increased Gabapentin *chronic pain on continuous chronic opiates -med resumed *anemia -stable *hyponatremia -improved *hypocalcemia -ionized fine *Plan: CM looking into IP rehab. Patient is frustrated about not knowing clearly the plan of care. CM to go talk w hi. Subjective: Carlos Enrique is c/o gluteal and sciatica pain. Objective: Vital Signs Temp Pulse Resp BP Pulse Ox 35.7 C L 87 14 132/94 H 95 06/06/18 08:00 06/06/18 08:00 06/06/18 08:00 06/06/18 08:00 06/06/18 08:00 Laboratory Results 06/03/18 05:03 06/03/18 05:03 06/05/18 06/06/18 06/07/18 05:59 05:59 05:59 Intake Total 5250 2800 Output Total 4520 8287 200 Balance 425 225 -200 - Physical Exam Constitutional: uncomfortable, No not in pain Eyes: PERRL Ears, Nose, Mouth, Throat: hearing normal Cardiovascular: regular rate and rhythym Respiratory: no respiratory distress Gastrointestinal: normoactive bowel sounds Skin: warm Musculoskeletal: generalized weakness Neurologic: AAOx3, other (very sleepy, awakens easly w verbal stimuli) Psychiatric: interacting appropriately, anxious ICD10 Worksheet Patient Problems: Problems Problem Status Onset L3 vertebral fracture Acute Right-sided low back pain with sciatica Acute Fracture of femoral neck, right, closed Acute Fusion of spine of lumbar region Acute
[2018-06-06] MEDS ORDERED: GABAPENTIN 300 MG CAP PO SCH (16:00)
[2018-06-06] MEDS ORDERED: GABAPENTIN 100 MG CAP PO SCH (16:00)
--- NOTE | 2018-06-06 16:12 | ASMTCMCOM ---
CM Note CM Note Notes: [facility] inpatient rehab (pt first choice for d/c) submitted for insurance authorization today. CM to follow. Date Signed: 06/06/2018 04:12 PM Electronically Signed By:HITESH Blake
[2018-06-06] MEDS: GABAPENTIN 400 MG CAP PO SCH ×2 (17:38→22:36)
--- NOTE | 2018-06-06 18:35 | WOCRNPDOC ---
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 The new wound which is in the inferior of the previous wound is full of dry slough. Patient's lumbar is painful, though palpation of the surrounding tissues does not elicit more pain. There is significant narcisa wound erythema and swelling to 2 cm on either side of the incisional wound. If patient has to have surgery on this area again wound RN would strongly recommend a post op incisional Wound Vac "Prevena" dressing. At this time wound RN is unsure whether this is of benefit as the wound bed is filled with slough and is dry. Will reach out to clinical nurse specialist at [facility] for guidance and follow up tomorrow. May cover with silver mepilex border dressing for the time being. Clinical nurse specialist confirmed that it is too far past surgery to put on incisional vac at this point. Please make sure vac is places immediately post op if there is another surgery. Wound care will sign off. Thank you for your consultation.
[2018-06-07] MEDS: ACETAMINOPHEN 500 MG TAB PO SCH ×3 (07:27→21:00)
--- NOTE | 2018-06-07 07:35 | SOAPPROG ---
SOAP Progress Note Assessment/Plan: Assessment: 62 yo M sp L4-S1 TLIF and L3 kyphoplasty, wound drainage suspicious for wound infection Plan: neuro: drsvetlana from lumbar wound consistent with wound infection, will make him NPO will order MRI lumbar spine w/ and w/o contrast hold lovenox scd/rogelio for dvt prophylaxis PT/OT hold transfer to SNF DR Castillo will see patient this am please call with neuro changes 06/07/18 07:32 Subjective: continued back pain and pain in right lateral thigh. no weakness. Objective: Vital Signs Temp Pulse Resp BP Pulse Ox 36.8 C 81 16 126/88 H 96 06/07/18 04:00 06/07/18 04:00 06/07/18 04:00 06/07/18 04:00 06/07/18 04:00 Laboratory Results 06/03/18 05:03 06/07/18 04:38 06/06/18 06/07/18 06/08/18 05:59 05:59 05:59 Intake Total 2800 900 Output Total 2575 1600 Balance 225 -700 AAOx4, +FC PERRL, EOMI, no facial droop 5/5 + light touch lumbar incision with drainage of brown liquid ICD10 Worksheet Patient Problems: Problems Problem Status Onset L3 vertebral fracture Acute Right-sided low back pain with sciatica Acute Fracture of femoral neck, right, closed Acute Fusion of spine of lumbar region Acute
[2018-06-07] MEDS ORDERED: DIAZEPAM 5 MG/ML 1 ML SYR IVP ONE (08:15)
[2018-06-07] MEDS: SENNOSIDES/DOCUSATE SODIUM TAB PO SCH ×2 (08:23→23:40)
[2018-06-07] MEDS: POLYETHYLENE GLYCOL 3350 17 GM PKT PO SCH (08:24)
--- NOTE | 2018-06-07 08:26 | HOSPPROG ---
Hospitalist Progress Note Assessment/Plan: [facility] Patient Name: CARLOS ENRIQUE SHELL III Rpt#: [id number] Unit Number: [id number] Attending/ER Physician: Sydnee Mercer MD Patient Type: MARIBEL ER Adm Date/Source: 06/02/18 EMR Discharge Date: Primary Carrier: [employer] Patient presented to the ER with severe back pain. He underwent recent surgery at L4-5, L5-S1 without complications. He went home and was having increasing pain. He had a MRI of the spine showing a compression deformity at L3 above the fusion. He had a kyphoplasty to see if this would help alleviate his pain. The hospitalist were asked to evaluate him for fevers. *fevers - chest xay stable - has no leukocytosis, UA is fine, lactate stable *acute on chronic low back pain -s/p kyphoplasty - Carlos Enrique is c/o bilateral gluteal pain and sciatica pain radiating down his right leg -to get an MRI today -concern for infection, drainage noted by neurosurgery from drain (he declined further evaluation when I saw him) *chronic pain on continuous chronic opiates -med resumed *anemia -stable *hyponatremia -improved *hypocalcemia -ionized fine *Plan: MRI today, Reviewed his care w his RN, prn meds ordered for MRI. Subjective: Carlos Enrique is c/o ongoing bilateral gluteal pain and pain radiating down his leg. Objective: Vital Signs Temp Pulse Resp BP Pulse Ox 37.3 C 102 H 14 144/98 H 94 06/07/18 08:00 06/07/18 08:00 06/07/18 08:00 06/07/18 08:00 06/07/18 08:00 Laboratory Results 06/03/18 05:03 06/07/18 04:38 06/06/18 06/07/18 06/08/18 05:59 05:59 05:59 Intake Total 2800 900 Output Total 2623 1600 Balance 225 -700 - Physical Exam Constitutional: uncomfortable, No not in pain Eyes: PERRL Ears, Nose, Mouth, Throat: hearing normal Cardiovascular: regular rate and rhythym, no murmur, rub, or gallop Respiratory: no respiratory distress Skin: warm Neurologic: AAOx3 Psychiatric: anxious ICD10 Worksheet Patient Problems: Problems Problem Status Onset L3 vertebral fracture Acute Right-sided low back pain with sciatica Acute Fracture of femoral neck, right, closed Acute Fusion of spine of lumbar region Acute
[2018-06-07] MEDS: GABAPENTIN 400 MG CAP PO SCH ×4 (08:28→21:00)
[2018-06-07] MEDS: morphINE SR 15 MG TAB PO SCH ×3 (08:28→21:00)
[2018-06-07] MEDS: ENOXAPARIN 40 MG/0.4 ML SYR SC SCH (08:28)
[2018-06-07] MEDS: FAMOTIDINE 20 MG TAB PO SCH (08:28)
[2018-06-07] MEDS: METHOCARBAMOL 750 MG TAB PO SCH ×4 (08:28→21:00)
[2018-06-07] MEDS ORDERED: HYDROmorphONE/DILAUDID 1 MG/ML INJ ONE (08:46)
[2018-06-07] MEDS ORDERED: HYDROmorphONE/DILAUDID 1 MG/ML INJ IVP ONE ×2 (09:00→09:45)
[2018-06-07] MEDS ORDERED: GADOBUTROL 10 ML VIAL IVP ONE (09:17)
[2018-06-07] MEDS: oxyCODONE IR 5 MG TAB PO PRN ×2 (10:20→23:38)
[2018-06-07] MEDS ORDERED: CEFEPIME HCL 2 GM in NS 100 ML IV SCH (11:30)
[2018-06-07] MEDS ORDERED: LIDOCAINE 1% 2 ML INJ IV ONE (11:45)
[2018-06-07] MEDS ORDERED: THROMBIN (BOVINE) 5,000 UNIT VIAL TP ONE (13:59)
[2018-06-07] MEDS ORDERED: CHLORHEXIDINE GLUC HIBICLENS 118 ML BTL TP ONE (13:59)
[2018-06-07] MEDS ORDERED: BUPIVACAINE 0.25% 30 ML SDV ONE (13:59)
[2018-06-07] MEDS ORDERED: EPINEPHrine 1 MG/ML INJ ONE (13:59)
[2018-06-07] MEDS ORDERED: BACITRACIN 50,000 UNITS/10 ML SYR IRR ONE ×2 (14:00→17:26)
[2018-06-07] MEDS ORDERED: VANCOMYCIN 1.5 GM in D5W 250 ML IV SCH (14:00)
--- NOTE | 2018-06-07 14:17 | ASMTCMCOM ---
CM Note CM Note Notes: Pt to OR today for washout of wound infection. Pt insurance denied approval for [facility] inpatient rehab, pt may need SNF and referrals sent in [employer] to [facility] and [facility] to see if they can take pt insurance. Date Signed: 06/07/2018 02:17 PM Electronically Signed By:HITESH Blake
[2018-06-07] MEDS ORDERED: LR 1,000 ML IV ONE (16:06)
--- NOTE | 2018-06-07 16:52 | GCON ---
INFECTIOUS DISEASE CONSULTATION DATE OF CONSULTATION: 06/07/2018 REASON FOR CONSULTATION: Possible postoperative infection. HPI: 62-year-old relatively healthy male who underwent surgical intervention of chronic low back pain and right sciatica on 05/26/2018. The patient underwent a right L4-L5 to L5-S1 lateral trans pedicular decompression and L4- S1 posterior segment fixation with local autograft placement. The patient did well postoperatively and states he "walked out of the hospital" and was doing well and was discharged 05/31/2018. Prior to discharge, it was identified on , that patient had a subacute L3 fracture that was new since January of 2018. Initial plan was continued bracing for the L3 fracture. The patient returned to the emergency room on 06/02/2018, with uncontrollable back pain with some urinary incontinence when the pain was severe. The patient underwent a lumbar CT scan on 06/02/2018 without contrast, that showed little change in the L3 fracture. No paraspinous hematoma was noted and some small postoperative gas bubbles were noted in the right decompressive bed, unknown significance. The patient subsequently underwent an L3 kyphoplasty 06/03/2018 as L3 fracture was suspected as origin of pain. Today, patient states that he has not achieved any significant relief in his pain and he still has severe back pain and right radicular pain which limits any significant movement. The patient with a fever to 38.7 on 06/02/2018, but since that time has been afebrile. The days following his L3 kyphoplasty, reports showed that had up and down back pain, and physical therapy was continued. The wound was noted to have some fibrinous sloughing and today the patient underwent an MRI to evaluate slow wound healing as well as back pain and a 9.3 cm long but narrow fluid collection in the paraspinous fluid collections was identified and patient suspect to have post op infection. The patient was started on IV vancomycin and cefepime and is going to the OR today. A wound culture and aspirate of the area were obtained prior to surgery. PAST MEDICAL HISTORY: Back pain, essential hypertension, melanoma. PAST SURGICAL HISTORY: Right hip replacement in August of 2017 following a fall. MEDICATIONS: Cefepime 2 g IV q.12 and vancomycin 1.5 g IV q.12. The patient is on Lovenox 40 subcu daily. ALLERGIES: NKDA. SOCIAL HISTORY: Patient drinks 2 alcoholic beverages a week. 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 He is . No tobacco. Originally from [place] but moved to [facility] in 1970s FAMILY HISTORY: Reviewed and noncontributory. REVIEW OF SYSTEMS: A complete 10-point review of systems was performed and is negative. Pertinent negatives include he denies any lower extremity weakness. His main symptom is pain and severe malaise related to the pain. PHYSICAL EXAM: VITAL SIGNS: BP 127/83, heart rate 89, respiratory rate of 15, saturation 95% on room air, T 37.2. GENERAL: This is a generally healthy- appearing male lying flat in bed in no resp distress but some distress due to back pain. No conjunctival lesions. No jaundice. Dry mucous membranes. Fair dentition. NECK: Supple. CARDIOVASCULAR: Regular rate and rhythm. No murmurs. CHEST: Clear to auscultation bilaterally. ABDOMEN: Soft, nontender. Bowel sounds are present. : No [place]. Patient was voiding without difficulty. BACK: Showed a lumbar incision with dehiscence distally and the wound was noted to be somewhat swollen with some faint narcisa wound erythema. No purulence was expressed on my exam. Mild tenderness to palpation. SKIN: no peripheral stigmata of endocarditis LABORATORY: 06/03/2018: White count 6.9, hematocrit 35, platelets of 259, 57% neutrophils, 22% lymphocytes. ESR today was 100, creatinine 0.7. CRP 210. Antibiotics were given before blood cultures before collected. ASSESSMENT/PLAN: 62-year-old male with recent surgery L4, L5, S1, transforaminal lumbar interbody fusion followed by an L3 kyphoplasty who had persistent back pain and underwent an MRI which showed a fairly large fluid collection in the soft tissues 9.3 cm in greatest dimension suggestive of infection. The patient does have an elevated ESR and CRP, but this is difficult to interpret in recent L3 kyphoplasty which could significantly elevate both of these measures. Patient going to OR for washout today due to high degree of suspicion for infection. --obtain blood cultures to assess for corresponding bacteremia --Will add on a white count to blood work from this morning as last white count was on the . --Cultures were taken at the bedside with an aspiration and wound culture and will continue to follow those plus hopeful operative cultures. --patient was given a dose of vancomycin and cefepime, which was adequate perioperative prophylaxis but would continue the patient on ceftriaxone 2 g intravenous daily as I do not think that he needs as broad of coverage that vancomycin and cefepime provide at this point. Time 85 min >50% time spent with care coordination with neurosurgery, review of records, education of patient and family about likely need for prolonged IV antibiotic therapy. Infectious Disease will continue to follow on a daily basis and will follow up on surgical findings to assess duration of antibiotic therapy. Briefly mentioned to the patient and his son that prolonged intravenous therapy is sometimes needed in these instances. Thank you for this consultation. Will continue to see him on a daily basis. /[id number]/MODL MTDD
--- NOTE | 2018-06-07 17:06 | POSTOPPROG ---
Post Op Note Date of Operation: 06/07/18 Surgeon: Garfield Dwyer Production Line Solderer: Garfield wDyer PAC Anesthesiologist: Veda Pires MD Anesthesia: GET(General Endotracheal) Pre-op Diagnosis: lumbar wound infection Post-op Diagnosis: same Indication: infection/back pain Procedure: Wound I&D Findings: purulent drainage Inf/Abcess present in the surg proc area at time of surgery?: Yes Depth: Deep Incisional (Fascial) EBL: Minimal Complications: None Drains: Wesley Hood (to bulb suction) Specimen(s): wound cultures
--- NOTE | 2018-06-07 17:08 | SOAPPROG ---
SOAP Progress Note Assessment/Plan: POST OP CHECK Assessment: Doing well sp lumbar wound I&D Plan: CPM in PACU, transfer to floor per protocol PARISH to bulb suction 06/07/18 17:06 Subjective: awake, alert, comfortable Objective: Vital Signs Temp Pulse Resp BP Pulse Ox 37.2 C 89 15 127/93 H 95 06/07/18 15:51 06/07/18 15:51 06/07/18 15:51 06/07/18 15:51 06/07/18 15:51 Microbiology 06/07/18 11:57 Gram Stain - Final Back - Aspirate 06/07/18 11:10 Gram Stain - Final Back - Swab Laboratory Results 06/07/18 13:30 06/07/18 04:38 06/06/18 06/07/18 06/08/18 05:59 05:59 05:59 Intake Total 2800 900 Output Total 2575 1600 Balance 225 -700 Vitals: BP: 109/71 HR: 104 O2: 1005 Neuro: awake GUERRERO, sens +LT follows commands ICD10 Worksheet Patient Problems: Problems Problem Status Onset L3 vertebral fracture Acute Right-sided low back pain with sciatica Acute Fracture of femoral neck, right, closed Acute Fusion of spine of lumbar region Acute
[2018-06-07] MEDS ORDERED: MIDAZOLAM 2 MG/2 ML VIAL ONE (17:10)
--- NOTE | 2018-06-07 17:11 | PDANEPAE ---
ANE Past Medical History - Cardiovascular History Hx Hypertension: No Hx Arrhythmias: No Hx Chest Pain: No Hx Coronary Artery / Peripheral Vascular Disease: No Hx CHF / Valvular Disease: No Hx Palpitations: No Cardiovascular History Comment: SYNCOPE ISSUE 20 PLUS YRS AGO. WORK UP NEG - Pulmonary History Hx COPD: No Hx Asthma/Reactive Airway Disease: No Hx Recent Upper Respiratory Infection: No Hx Oxygen in Use at Home: No Hx Sleep Apnea: No Sleep Apnea Screening Result - Last Documented: Positive - Neurologic History Hx Cerebrovascular Accident: No Hx Seizures: No Hx Dementia: No - Endocrine History Hx Diabetes: No - Renal History Hx Renal Disorders: No - Liver History Hx Hepatic Disorders: No - Neurological & Psychiatric Hx Hx Neurological and Psychiatric Disorders: No - Cancer History Hx Cancer: Yes Cancer History Comment: MELANOMA - Congenital Disorder History Hx Congenital Disorders: No - GI History Hx Gastrointestinal Disorders: No - Other Health History Other Health History: DJD - Chronic Pain History Chronic Pain: Yes (LUMBAR REGION) - Surgical History Prior Surgeries: RT TOTAL HIP 08/2017. NASAL. HEMORRHOIDS. SKIN MELANOMA ANE Review of Systems Review of Systems: ANE Patient History - Allergies Allergies/Adverse Reactions: No Known Drug Allergies Allergy (Unknown, Verified 06/02/18 16:32) - Home Medications Home Medications: Diazepam [Valium 5 MG (*)] 5 mg PO Q8H PRN 06/02/18 [Last Taken Unknown] Methocarbamol [Robaxin 750 mg (*)] 750 mg PO QID PRN 06/02/18 [Last Taken ] oxyCODONE IR [Oxycodone Ir (*)] 5 - 10 mg PO Q6H PRN 06/02/18 [Last Taken ] - NPO status NPO Since - Liquids (Date): 06/07/18 NPO Since - Liquids (Time): 07:30 NPO Since - Solids (Date): 06/07/18 NPO Since - Solids (Time): 07:30 - Smoking Hx Smoking Status: Never smoked - Alcohol Use Alcohol Use: Rarely ANE Labs/Vital Signs - Labs Result Diagrams: 06/07/18 13:30 06/07/18 04:38 - Vital Signs Blood Pressure: 127/93 Heart Rate: 89 Respiratory Rate: 15 O2 Sat (%): 95 Height: 182.88 cm Weight: 79.379 kg ANE Physical Exam - Airway Mallampati Score: Class 2 - ASA Status ASA Status: II ANE Anesthesia Plan Anesthesia Plan: general endotracheal anesthesia
[2018-06-07] MEDS ORDERED: PROPOFOL 200 MG/20 ML VIAL ONE (17:15)
[2018-06-07] MEDS ORDERED: fentaNYL 100 MCG/2 ML INJ ONE ×3 (17:15→18:47)
[2018-06-07] MEDS ORDERED: PROPOFOL/EMULSION 500 MG/50 ML BOTTLE IV ONE (17:16)
[2018-06-07] MEDS ORDERED: ROCURONIUM 50 MG/5 ML VIAL ONE (17:17)
[2018-06-07] MEDS ORDERED: ONDANSETRON 4 MG/2 ML VIAL ONE (17:17)
[2018-06-07] MEDS ORDERED: METOCLOPRAMIDE 10 MG/2 ML VIAL ONE (17:17)
[2018-06-07] MEDS ORDERED: VANCOMYCIN 1 GM VIAL ONE (17:49)
[2018-06-07] MEDS ORDERED: MIDAZOLAM 2 MG/2 ML VIAL IVP ONE (17:55)
[2018-06-07] MEDS ORDERED: SUGAMMADEX SODIUM 200 MG/2 ML VIAL IVP ONE (18:09)
[2018-06-07] MEDS ORDERED: NALOXONE HCL 0.4 MG/ML INJ IVP PRN (18:29)
[2018-06-07] MEDS ORDERED: ONDANSETRON 4 MG/2 ML VIAL IVP PRN (18:29)
[2018-06-07] MEDS ORDERED: DIAZEPAM 5 MG/ML 1 ML SYR IVP PRN (18:29)
[2018-06-07] MEDS ORDERED: PROMETHAZINE HCL 25 MG/ML INJ IVP PRN (18:29)
[2018-06-07] MEDS ORDERED: HYDROmorphONE/DILAUDID 2 MG/ML INJ IVP PRN (18:29)
[2018-06-07] MEDS ORDERED: LR 500 ML IV PRN (18:29)
--- NOTE | 2018-06-07 18:30 | POSTANESTH ---
Post Anesthetic Evaluation Cardiovascular Status: Normal, Stable Respiratory Status: Normal, Stable Level of Consciousness/Mental Status: Can Participate in Eval Pain Control: Adequate, Prn Tx Ordered Nausea/Vomiting Control: Adequate, Prn Tx Ordered Complications Possibly Related to Anesthesia: None Noted
[2018-06-07] MEDS: fentaNYL 100 MCG/2 ML INJ IVP PRN ×2 (18:51→18:59)
--- NOTE | 2018-06-07 23:18 | GOP ---
DATE OF OPERATION: 06/07/2018 SURGEON: José Luis Rider MD NEUROSURGEON: José Luis Rider MD. SILK TOP HAT BODY MAKER: TONIA Aponte. ANESTHESIA: General endotracheal. PREOPERATIVE DIAGNOSIS: Complex postoperative wound infection. POSTOPERATIVE DIAGNOSIS: Complex postoperative wound infection. PROCEDURE PERFORMED: Incision and drainage of complex postoperative wound infection. FINDINGS: ESTIMATED BLOOD LOSS: Trace. INDICATIONS: The patient is a 62-year-old man who recently underwent a multilevel lumbar fusion with intractable pain and swelling in the incisional area and some purulent drainage who presents now for incision and drainage. DESCRIPTION OF PROCEDURE: After informed consent was obtained, the patient was taken to the operatin g room and placed in a prone position. The lumbosacral area was prepped and draped in sterile fashio n, and the prior incision was carefully opened. Purulent fluid was identified and sent for cultures. The wound was copiously irrigated as it was opened down deep to the fascia. The instrumentation th at had been placed was identified, and this was copiously irrigated. The dissection was carried down to the epidural space which was carefully explored, and there did not appear to be pus coming from t he interbody fusion area, but this was all contaminated and was copiously irrigated and debrided. Ep idural drain was then placed, and the wound was closed in a layered fashion using interrupted Vicryl sutures followed by Steri-Strips on the skin. Note that there was some necrotic tissue on the skin t hat was carefully excised and closed. COMPLICATIONS: None. DISPOSITION: The patient is currently in the process of being repositioned for extubation. /[id number]/MODL
[2018-06-08 05:06] LABS: PLATELET COUNT 457 10^3/uL (150-400)
[2018-06-08] MEDS: ACETAMINOPHEN 500 MG TAB PO SCH ×4 (06:50→22:20)
[2018-06-08] MEDS ORDERED: VANCOMYCIN 1.25 GM in D5W 250 ML IV SCH (08:00)
--- NOTE | 2018-06-08 08:04 | SOAPPROG ---
SOAP Progress Note Assessment/Plan: Assessment: 62 yo M sp L4-S1 TLIF and L3 kyphoplasty, POD #1 incision and drainage of L4-S1 wound infection Plan: neuro: stable, leg pain improved after surgery cultures pending, on swab with rare gram + cocci, on vanco/maxipime, Appreciate ID help scd/rogelio/lovenox for dvt prophylaxis PARISH x 1, will keep until output is minimal Appreciate Hospitalists help with medical issues PT/OT DR Castillo saw patient this am please call with neuro changes 06/07/18 07:32 06/08/18 08:00 06/08/18 08:04 Subjective: continued back pain, no leg pain, no weakness. Objective: Vital Signs Temp Pulse Resp BP Pulse Ox 37.3 C 89 16 126/88 H 97 06/08/18 07:25 06/08/18 07:25 06/08/18 07:25 06/08/18 07:25 06/08/18 07:25 Microbiology 06/07/18 17:46 Gram Stain - Final Back - Eswab 06/07/18 11:57 Gram Stain - Final Back - Aspirate 06/07/18 11:10 Gram Stain - Final Back - Swab Laboratory Results 06/08/18 04:31 06/08/18 04:31 06/07/18 06/08/18 06/09/18 05:59 05:59 05:59 Intake Total 900 850 900 Output Total 1600 415 200 Balance -700 435 700 AAOx4, +FC PERRL, EOMI, no facial droop 5/5 + light touch C/D/I ICD10 Worksheet Patient Problems: Problems Problem Status Onset L3 vertebral fracture Acute Right-sided low back pain with sciatica Acute Fracture of femoral neck, right, closed Acute Fusion of spine of lumbar region Acute
[2018-06-08] MEDS: ENOXAPARIN 40 MG/0.4 ML SYR SC SCH (08:08)
[2018-06-08] MEDS: METHOCARBAMOL 750 MG TAB PO SCH ×3 (08:09→22:20)
[2018-06-08] MEDS: morphINE SR 15 MG TAB PO SCH ×3 (08:10→22:20)
[2018-06-08] MEDS: FAMOTIDINE 20 MG TAB PO SCH (08:10)
[2018-06-08] MEDS: GABAPENTIN 400 MG CAP PO SCH ×3 (08:10→22:20)
[2018-06-08] MEDS: oxyCODONE IR 5 MG TAB PO PRN ×4 (08:19→23:38)
--- NOTE | 2018-06-08 08:45 | PCMIDPN ---
Assessment/Plan: #L4-S1 TLIF and L3 kyphoplasty now w wound infection related to TLIF s/p washout 06/07/2018 with purulence noted in the OR down to fascia. Patient underwent washout down to hardware. Gram stain from the OR shows GPCs, afebrile overnight --resume vancomycin based on Gram stain from the OR until MRSA or Enterococcus ruled out --continue ceftriaxone for gram-negative coverage until culture maturity --place PICC line tomorrow # leukocytosis related to wound infection: Slightly improved today Meds Ceftriaxone 2 g IV daily, # 2 S/p: vancomycin 1.5 g x1 Cefepime 2 g x1 microbiology 06/07 wound swab: GS no Org 06/07 wound aspiration: GS:no org 06/07 OR swab: GS rare GPC Subjective: Patient feeling much better as compared to yesterday, pain much reduced Objective: Vital Signs Temp Pulse Resp BP Pulse Ox 37.3 C 89 16 126/88 H 96 06/08/18 07:25 06/08/18 07:25 06/08/18 07:25 06/08/18 07:25 06/08/18 08:24 Microbiology 06/07/18 17:46 Gram Stain - Final Back - Eswab 06/07/18 11:57 Gram Stain - Final Back - Aspirate 06/07/18 11:10 Gram Stain - Final Back - Swab Laboratory Results 06/08/18 04:31 06/08/18 04:31 06/07/18 06/08/18 06/09/18 05:59 05:59 05:59 Intake Total 900 850 900 Output Total 1600 415 200 Balance -700 435 700 ESR 100 MM/HR (0-20) H 06/07/18 13:30 C-Reactive Protein 210.3 mg/L (<10.0) H 06/07/18 04:38 - Physical Exam EENT: No scleral icterus, No thrush Respiratory: lungs clear, No accessory muscle use Neck: supple Cardiac/Chest: regular rate, rhythm Extremities: No pedal edema Back: other (PARISH drain in place with serosanguineous fluid) Skin: warm/dry, No diaphoresis, No rash Neuro/Psych: no motor/sensory deficits, alert, normal mood/affect, oriented x 3 - Time Spent With Patient Time Spent with Patient: greater than 35 minutes (Case was reviewed with nurse surgical services) Time Spent with Patient: Greater than 35 minutes spent on this patients care, greater than 50% of time spent counseling, educating, and coordinating care regarding the above mentioned plan. ICD10 Worksheet Patient Problems: Problems Problem Status Onset L3 vertebral fracture Acute Right-sided low back pain with sciatica Acute Fracture of femoral neck, right, closed Acute Fusion of spine of lumbar region Acute
[2018-06-08] MEDS: POLYETHYLENE GLYCOL 3350 17 GM PKT PO SCH (09:06)
[2018-06-08] MEDS: SENNOSIDES/DOCUSATE SODIUM TAB PO SCH ×2 (09:06→22:21)
--- NOTE | 2018-06-08 15:44 | ASMTCMCOM ---
CM Note CM Note Notes: Explained to pt insurance declined [facility] inpatient rehab, pt chooses [facility]. Lupe with [facility] admissions met with pt. [facility] SNF has accepted pt and has insurance auth. CM to follow. Date Signed: 06/08/2018 03:44 PM Electronically Signed By:HITESH Blake
--- NOTE | 2018-06-08 17:30 | HOSPPROG ---
Hospitalist Progress Note Assessment/Plan: Patient presented to the ER with severe back pain. He underwent recent surgery at L4-5, L5-S1 without complications. He went home and was having increasing pain. He had a MRI of the spine showing a compression deformity at L3 above the fusion. Yesterday he had a kyphoplasty to see if this would help alleviate his pain. The hospitalist were asked to evaluate him for fevers. He shared today he had this once and since has been afebrile, he doesn't feel ill and his main complaint is his back. #L4-S1 TLIF and L3 kyphoplasty -wound infection related to TLIF s/p washout 06/07/2018 -Patient underwent washout down to hardware. -Gram stain from the OR shows GPCs, afebrile overnight -vancomycin MRSA or Enterococcus ruled out -continue ceftriaxone for gram-negative coverage until culture maturity # leukocytosis related to wound infection: -Slightly improved *acute on chronic low back pain -concern for infection, drainage noted by neurosurgery from drain *chronic pain on continuous chronic opiates -med resumed *anemia -stable *hyponatremia -improved *hypocalcemia -ionized fine *Plan: cont iv abx watch cultures cont to follow Subjective: Still having pain but much less since washout. Objective: Vital Signs Temp Pulse Resp BP Pulse Ox 36.8 C 79 16 121/94 H 95 06/08/18 16:00 06/08/18 16:00 06/08/18 16:00 06/08/18 16:00 06/08/18 16:00 Microbiology 06/07/18 17:46 Gram Stain - Final Back - Eswab 06/07/18 11:57 Gram Stain - Final Back - Aspirate 06/07/18 11:10 Gram Stain - Final Back - Swab Laboratory Results 06/08/18 04:31 06/08/18 04:31 06/07/18 06/08/18 06/09/18 05:59 05:59 05:59 Intake Total 802 817 9956 Output Total 4673 750 5827 Balance -343 760 2704 - Physical Exam Constitutional: chronically ill appearing, uncomfortable Eyes: PERRL, anicteric sclera Ears, Nose, Mouth, Throat: moist mucous membranes, hearing normal Cardiovascular: regular rate and rhythym, No JVD Respiratory: no respiratory distress, reduced air movement Gastrointestinal: normoactive bowel sounds, No tenderness Skin: warm, No mottled Musculoskeletal: pain with ROM, generalized weakness Neurologic: AAOx3 Psychiatric: interacting appropriately, not anxious, not encephalopathic ICD10 Worksheet Patient Problems: Problems Problem Status Onset L3 vertebral fracture Acute Right-sided low back pain with sciatica Acute Fracture of femoral neck, right, closed Acute Fusion of spine of lumbar region Acute
[2018-06-08] MEDS ORDERED: ALTEPLASE 2 MG VIAL IVP PRN (18:31)
[2018-06-08] MEDS: ceFAZolin 2 GM/DEXTROSE 100 ML IV SCH (22:23)
[2018-06-09] MEDS: oxyCODONE IR 5 MG TAB PO PRN ×4 (06:11→21:52)
[2018-06-09] MEDS: ceFAZolin 2 GM/DEXTROSE 100 ML IV SCH ×3 (06:12→21:02)
[2018-06-09] MEDS: ACETAMINOPHEN 500 MG TAB PO SCH ×3 (06:28→20:59)
--- NOTE | 2018-06-09 07:22 | SOAPPROG ---
SOAP Progress Note Assessment/Plan: Assessment: 62 yo M sp L4-S1 TLIF and L3 kyphoplasty, POD #2 incision and drainage of L4-S1 wound infection Plan: neuro: stable, leg pain improved after surgery MSSA on cultures, on ancef, Appreciate ID help scd/rogelio/lovenox for dvt prophylaxis PARISH x 1, will keep until output is minimal Appreciate Hospitalists help with medical issues likely to need snf placement when ready lso brace when out of bed PT/OT DR Castillo saw patient this am please call with neuro changes 06/07/18 07:32 06/08/18 08:00 06/08/18 08:04 06/09/18 07:21 Subjective: continued back pain, no leg pain, no weakness. Objective: Vital Signs Temp Pulse Resp BP Pulse Ox 36.7 C 65 14 109/73 95 06/09/18 04:00 06/09/18 04:00 06/09/18 04:00 06/09/18 04:00 06/09/18 04:00 Microbiology 06/07/18 20:48 Blood Panel (PCR) - Final Blood S.aureus Methicillin Suscept. 06/07/18 17:46 Gram Stain - Final Back - Eswab 06/07/18 11:57 Gram Stain - Final Back - Aspirate 06/07/18 11:10 Gram Stain - Final Back - Swab Laboratory Results 06/08/18 04:31 06/08/18 04:31 06/08/18 06/09/18 06/10/18 05:59 05:59 05:59 Intake Total 850 3610 500 Output Total 415 3040 Balance 435 570 500 AAOX4, +FC PERRL, EOMI, no facial droop 5/5 + light touch C/D/I ICD10 Worksheet Patient Problems: Problems Problem Status Onset L3 vertebral fracture Acute Right-sided low back pain with sciatica Acute Fracture of femoral neck, right, closed Acute Fusion of spine of lumbar region Acute
--- NOTE | 2018-06-09 08:28 | PCMIDPN ---
Assessment/Plan: #L4-S1 TLIF and L3 kyphoplasty now w wound infection related to TLIF s/p washout 06/07/2018 with purulence noted in the OR down to fascia. Patient underwent washout down to hardware 06/07. Also low grade bacteremia. --repeat blood cx today --continue to assess on daily basis if need for repeat washout. Back pain a little higher than expected today (although better than pre-op) and low grade fever but could still be within realm of expectation. Care coordinated with neurosurg --possible PICC tomorrow, blood cx will like be cleared today bc only 1/2 blood cx positive initially and undergone washout --will need 8 weeks IV antibiotics and likely suppression following therapy --could consider TTE but suspect transient bacteremia + no murmur+ no peripheral stigmata of endocarditis # leukocytosis related to wound infection: Slightly improved today Meds Ancef 2gm IV q8h #1 microbiology 06/07 wound swab: GS MSSA 06/07 wound aspiration: GS:MSSA 06/07 OR swab: GS MSSA 06/07 blood cx 1/2 MSSA 06/09 blood cx (2) pending Subjective: still w fairly significant back pain but still better than pre-op Objective: Vital Signs Temp Pulse Resp BP Pulse Ox 36.7 C 65 14 109/73 95 06/09/18 04:00 06/09/18 04:00 06/09/18 04:00 06/09/18 04:00 06/09/18 04:00 Microbiology 06/07/18 20:48 Blood Panel (PCR) - Final Blood S.aureus Methicillin Suscept. 06/07/18 17:46 Gram Stain - Final Back - Eswab 06/07/18 11:57 Gram Stain - Final Back - Aspirate 06/07/18 11:10 Gram Stain - Final Back - Swab Laboratory Results 06/08/18 04:31 06/08/18 04:31 06/08/18 06/09/18 06/10/18 05:59 05:59 05:59 Intake Total 850 3610 800 Output Total 415 3040 500 Balance 435 570 300 ESR 100 MM/HR (0-20) H 06/07/18 13:30 C-Reactive Protein 210.3 mg/L (<10.0) H 06/07/18 04:38 - Physical Exam General Appearance: alert, no apparent distress Respiratory: lungs clear, No accessory muscle use Neck: supple Cardiac/Chest: regular rate, rhythm, No systolic murmur Abdomen: non-tender, soft Male Genitalia: No hammond Skin: pallor, No rash Neuro/Psych: no motor/sensory deficits, alert, normal mood/affect, oriented x 3 - Time Spent With Patient Time Spent with Patient: greater than 35 minutes (called physician friend in [place] per patient request and reviewed case; also called . Reviewed plans w patient at bedside 2x) Time Spent with Patient: Greater than 35 minutes spent on this patients care, greater than 50% of time spent counseling, educating, and coordinating care regarding the above mentioned plan. ICD10 Worksheet Patient Problems: Problems Problem Status Onset L3 vertebral fracture Acute Right-sided low back pain with sciatica Acute Fracture of femoral neck, right, closed Acute Fusion of spine of lumbar region Acute
--- NOTE | 2018-06-09 08:29 | PDIAF ---
- Diagnosis Diagnosis: MSSA bacteremia and post op infection Code Status: Full Code - Medication Management Discharge Medications: Medications to Continue on Transfer Diazepam [Valium 5 MG (*)] 5 mg PO Q8H PRN 06/02/18 [Last Taken Unknown] Methocarbamol [Robaxin 750 mg (*)] 750 mg PO QID PRN 06/02/18 [Last Taken ] oxyCODONE IR [Oxycodone Ir (*)] 5 - 10 mg PO Q6H PRN 06/02/18 [Last Taken ] Electrophysiologist Antibiotics: cefazolin 6gm IV continuous infusion or Cefazolin 2gm IV q8h Fdc Antibiotic Stop Date: 08/04/18 Discharge Medications: Refer to the Discharge Home Medication list for PRN reason. PICC Care - Routine: Yes - Orders Services needed: Home Care, Registered Nurse Home Care Face to Face: I certify that this patient was under my care and that I had the required [id number] encounter meeting the encounter requirements on the discharge day. My findings support the fact that the patient is homebound as defined in Home Care Face to Face Continued: CMS Chapter 7 Medicare Benefits Manual 30.1.1 , The condition of the patient is such that there exists a normal inability to leave home and consequently, leaving home would require a considerable and taxing effort. - Labs/Radiology CBC w/diff Date: 06/13/18 (Weekly Wednesday) CMP Date: 06/13/18 (Weekly Wednesday) CRP Date: 06/13/18 (Weekly Wednesday) Call or Fax Lab and Imaging Results to: Zayra Lugo MD [facility] at fax [phone] - Follow Up Care Current Providers and Referrals: Patient,NotPresent [Unknown] - As per Instructions
[2018-06-09] MEDS: METHOCARBAMOL 750 MG TAB PO SCH ×3 (09:17→21:00)
[2018-06-09] MEDS: morphINE SR 15 MG TAB PO SCH ×3 (09:17→20:59)
[2018-06-09] MEDS: GABAPENTIN 400 MG CAP PO SCH ×3 (09:18→21:00)
[2018-06-09] MEDS: FAMOTIDINE 20 MG TAB PO SCH (09:18)
[2018-06-09] MEDS: SENNOSIDES/DOCUSATE SODIUM TAB PO SCH ×2 (09:18→21:00)
[2018-06-09] MEDS: POLYETHYLENE GLYCOL 3350 17 GM PKT PO SCH (09:19)
[2018-06-09] MEDS: ENOXAPARIN 40 MG/0.4 ML SYR SC SCH (09:26)
--- NOTE | 2018-06-09 15:39 | HOSPPROG ---
Hospitalist Progress Note Assessment/Plan: Patient presented to the ER with severe back pain. He underwent recent surgery at L4-5, L5-S1 without complications. He went home and was having increasing pain. He had a MRI of the spine showing a compression deformity at L3 above the fusion. Had a kyphoplasty to see if this would help alleviate his pain. The hospitalist were asked to evaluate him for fevers. #L4-S1 TLIF and L3 kyphoplasty -wound infection related to TLIF s/p washout 06/07/2018 -return to OR for repeat washout -D/W Dr Lugo -Patient underwent washout down to hardware. -Gram stain from the OR shows GPCs -MSSA -conts fever # leukocytosis related to wound infection: -Slightly improved -not check ed today *acute on chronic low back pain -infection *chronic pain on continuous chronic opiates -med resumed *anemia -stable *hyponatremia -improved *hypocalcemia -ionized fine *Plan: cont iv abx return to OR cont to follow Subjective: Pt still having pain. Frustrated by situation. Objective: Vital Signs Temp Pulse Resp BP Pulse Ox 37.2 C 78 16 116/87 H 97 06/09/18 15:24 06/09/18 15:24 06/09/18 15:24 06/09/18 15:24 06/09/18 15:24 Microbiology 06/07/18 20:48 Blood Panel (PCR) - Final Blood S.aureus Methicillin Suscept. 06/07/18 11:57 Gram Stain - Final Back - Aspirate 06/07/18 17:46 Gram Stain - Final Back - Eswab 06/07/18 11:10 Gram Stain - Final Back - Swab Wound Culture - Final Staphylococcus Aureus Laboratory Results 06/08/18 04:31 06/08/18 04:31 06/08/18 06/09/18 06/10/18 05:59 05:59 05:59 Intake Total 850 3610 800 Output Total 415 3040 1200 Balance 435 570 -400 - Physical Exam Constitutional: appears nourished, uncomfortable, No obese Eyes: PERRL, anicteric sclera, EOMI Ears, Nose, Mouth, Throat: moist mucous membranes, hearing normal, ears appear normal Cardiovascular: regular rate and rhythym, No JVD, No edema Respiratory: no respiratory distress, no rales or rhonchi, reduced air movement Gastrointestinal: normoactive bowel sounds, No tenderness, No ascites Skin: warm, normal color, No mottled Musculoskeletal: joint tenderness, pain with ROM, generalized weakness Neurologic: AAOx3 Psychiatric: not encephalopathic, anxious, poor insight, poor judgement ICD10 Worksheet Patient Problems: Problems Problem Status Onset Fracture of femoral neck, right, closed Acute Fusion of spine of lumbar region Acute Right-sided low back pain with sciatica Acute L3 vertebral fracture Acute
[2018-06-09] MEDS ORDERED: NS 1,000 ML IV ONE (15:54)
[2018-06-10] MEDS: ACETAMINOPHEN 500 MG TAB PO SCH ×3 (05:16→21:19)
[2018-06-10] MEDS: oxyCODONE IR 5 MG TAB PO PRN ×3 (05:17→23:24)
[2018-06-10] MEDS: ceFAZolin 2 GM/DEXTROSE 100 ML IV SCH ×3 (06:00→23:22)
[2018-06-10] MEDS: ENOXAPARIN 40 MG/0.4 ML SYR SC SCH (07:23)
[2018-06-10] MEDS: FAMOTIDINE 20 MG TAB PO SCH (08:03)
[2018-06-10] MEDS: GABAPENTIN 400 MG CAP PO SCH ×3 (08:03→21:20)
[2018-06-10] MEDS: SENNOSIDES/DOCUSATE SODIUM TAB PO SCH ×2 (08:03→21:20)
[2018-06-10] MEDS: METHOCARBAMOL 750 MG TAB PO SCH ×3 (08:03→21:21)
[2018-06-10] MEDS: morphINE SR 15 MG TAB PO SCH ×3 (08:04→21:20)
--- NOTE | 2018-06-10 08:37 | SOAPPROG ---
SOAP Progress Note Assessment/Plan: Assessment: Doing well sp lumbar wound I&D. PARISH still productive with purulent drainage Pain under better control but patient still having some difficulty mobilizing due to back pain. Plan: Appreciate ID assistance. On Ancef 1 gram Q8. Continue PARISH to bulb suction Needs PICC line 06/10/18 08:43 06/10/18 08:43 Subjective: Awake, alert, working on computer. States his pain is under better control since his wound I&D, but he still has some limited mobility due to pain. Denies new numbness tingling or weakness. Objective: Vital Signs Temp Pulse Resp BP Pulse Ox 36.6 C 82 17 124/89 H 92 06/10/18 07:47 06/10/18 07:47 06/10/18 07:47 06/10/18 07:47 06/10/18 07:47 Microbiology 06/07/18 20:48 Blood Panel (PCR) - Final Blood S.aureus Methicillin Suscept. 06/07/18 11:57 Gram Stain - Final Back - Aspirate 06/07/18 17:46 Gram Stain - Final Back - Eswab 06/07/18 11:10 Gram Stain - Final Back - Swab Wound Culture - Final Staphylococcus Aureus Laboratory Results 06/08/18 04:31 06/08/18 04:31 06/09/18 06/10/18 06/11/18 05:59 05:59 05:59 Intake Total 3610 3000 500 Output Total 3040 2415 525 Balance 570 585 -25 Neuro: GUERRERO, sens +LT follows commands Incision: dressing taken down and incision looks good PARISH: purulent discharge 65 ml Temp: 36.6 ICD10 Worksheet Patient Problems: Problems Problem Status Onset L3 vertebral fracture Acute Right-sided low back pain with sciatica Acute Fracture of femoral neck, right, closed Acute Fusion of spine of lumbar region Acute
[2018-06-10] MEDS: POLYETHYLENE GLYCOL 3350 17 GM PKT PO SCH (09:02)
--- NOTE | 2018-06-10 12:51 | HOSPPROG ---
Hospitalist Progress Note Assessment/Plan: Patient presented to the ER with severe back pain. He underwent recent surgery at L4-5, L5-S1 without complications. He went home and was having increasing pain. He had a MRI of the spine showing a compression deformity at L3 above the fusion. Had a kyphoplasty to see if this would help alleviate his pain. #L4-S1 TLIF and L3 kyphoplasty -wound infection related to TLIF s/p washout 06/07/2018 -D/W Dr Nuñez -Patient underwent washout down to hardware. -Gram stain from the OR shows GPCs -MSSA # leukocytosis related to wound infection: -improved -not checked today *acute on chronic low back pain -infection *chronic pain on continuous chronic opiates -med resumed *anemia -stable *hyponatremia -improved *hypocalcemia -ionized fine *Plan: cont iv abx hope for inpt rehab will watch over the weekend cont to follow Subjective: Still having significant pain. No other issues. Anxious about being here. Objective: Vital Signs Temp Pulse Resp BP Pulse Ox 36.8 C 75 16 105/84 H 93 06/10/18 11:53 06/10/18 11:53 06/10/18 11:53 06/10/18 11:53 06/10/18 11:53 Microbiology 06/07/18 17:46 Gram Stain - Final Back - Eswab 06/07/18 11:57 Gram Stain - Final Back - Aspirate 06/07/18 20:48 Blood Panel (PCR) - Final Blood S.aureus Methicillin Suscept. 06/07/18 11:10 Gram Stain - Final Back - Swab Wound Culture - Final Staphylococcus Aureus Laboratory Results 06/08/18 04:31 06/08/18 04:31 06/09/18 06/10/18 06/11/18 05:59 05:59 05:59 Intake Total 3610 3000 1250 Output Total 3040 2415 1325 Balance 570 585 -75 - Physical Exam Constitutional: uncomfortable, No obese Eyes: PERRL, anicteric sclera Ears, Nose, Mouth, Throat: moist mucous membranes, hearing normal Cardiovascular: No JVD, No edema Respiratory: no respiratory distress, reduced air movement Gastrointestinal: No tenderness, No ascites Skin: warm, normal color, No mottled Musculoskeletal: no joint effusions, pain with ROM, generalized weakness Neurologic: AAOx3 Psychiatric: interacting appropriately, not encephalopathic, anxious ICD10 Worksheet Patient Problems: Problems Problem Status Onset Fracture of femoral neck, right, closed Acute Fusion of spine of lumbar region Acute Right-sided low back pain with sciatica Acute L3 vertebral fracture Acute
--- NOTE | 2018-06-10 15:46 | ASMTCMCOM ---
CM Note CM Note Notes: PT continues to rec inpatient rehab and if not approved then SNF. Pt on IV cefazolin. [facility] to rescind insurance auth (spoke with Lupe) as [facility] to attempt to get insurance auth for [facility] inpatient rehab again. Fatuma at [facility] inpatient rehab updated and they will have to see how pt does over the weekend and assess Wednesday. CM to follow. Date Signed: 06/10/2018 03:45 PM Electronically Signed By:HITESH Blake
--- NOTE | 2018-06-10 17:37 | ECHO ---
[email or web address] [address] [address] Main: [phone] Fax: Transthoracic Echocardiogram Name: CHAR SHELL MR#: [id number] Study Date: 06/10/2018 Study Time: 12:05 PM Date of : 1955 Age: 62 year(s) Height: 182.9 cm (72 in.) Weight: 79.38 kg (175 lb.) BSA: 2.01 m2 Gender: Male Examination: Echo Indication: MSSA bactereia from wound Image Quality: Adequate Contrast: Requested by: Zayra Lugo BP: 105 mmHg/84 mmHg Heart Rate: Rhythm: Indication: MSSA bactereia from wound Procedure Staff Agricultural Researcher: Nikki Delgadillo [facility] Reading Physician: Laureano Daniels MD Requesting Provider: Conclusions: Normal size left ventricle. No LV hypertrophy. Normal global systolic LV function. EF is 65 %. No regional wall motion abnormality. Normal diastolic LV function. Normal RV function. The left atrium is mildly dilated. LA index 37.8ml/m2. The right atrium is normal in size. There is mild thickening of the mitral valve leaflets. Mild to moderate mitral regurgitation. No mitral stenosis is present. There is no mitral valve vegetation. The aortic valve is tri-leaflet. There is no aortic valve regurgitation. No aortic valve stenosis is present. There is no aortic valve vegetation. The tricuspid valve is normal in appearance and function. Trivial to mild tricuspid valve regurgitation. The pulmonary artery pressure is normal. No tricuspid valve vegetation. Pulmonary valve not well visualized. Normal size aortic root. The IVC is normal sized. There is no convincing evidence of endocarditis on the basis of this transthoracic study. If endocarditis is strongly suspected RecCons1. Patient: CHAR SHELL Study Date: 06/10/2018 Page 1 of 3 12:05 PM Measurements: Chambers Valvular Assessment AV/MV Valvular Assessment TV/PV Normal Normal Normal Name Value Range Name Value Range Name Value Range IVSd (2D): 1.1 cm (0.6 cm-1.1 AV Vmax: 1.13 m/s (1 m/s-1.7 TR Vmax: 2.37 mm/s ( - ) cm) m/s) TR PGmax: 22 mmHg ( - ) LVDd (2D): 4.8 cm (4.2 cm-5.9 AV maxP mmHg ( - ) syst. PAP: 27 mmHg ( - ) cm) LVOT Vmax: 0.85 m/s (0.7 m/s-1.1 PV Vmax: 0.86 m/s (0.6 m/s-0.9 LVDs (2D): 3.0 cm (2.1 cm-4 m/s) m/s) cm) GISSELL (Vmax): 3.4 cm2 ( - ) PV PGmax: 3 mmHg ( - ) LVPWd (2D): 0.8 cm (0.6 cm-1 MV E Vmax: 0.65 m/s ( - ) cm) MV A Vmax: 0.64 m/s ( - ) LVOTd 2.4 cm 2.4 cm mm MV E/A: 1.02 ( - ) LVEF (BP): 65 % (>=55 %) RVDd(2D): 3.3 cm (1.9 cm-3.8 cmmm) Continued Measurements: Chambers Valvular Assessment AV/MV Valvular Assessment TV/PV Name Value Name Value Name Value LADs: 3.7 cm MV DecTime: 194 m/s CVP (est.): 5 mmHg LADs Lon.1 cm MV E' Septal: 0.08 m/s LA Area: 18.7 cm2 MV E/E' Septal: 8.40 TAPSE: 2.2 cm MV E/E' Lateral: 5.70 RA Area: 16.7 cm2 Findings: Left Ventricle: Normal size left ventricle. No LV hypertrophy. Normal global systolic LV function. EF is 65 %. No regional wall motion abnormality. Normal diastolic LV function. Right Ventricle: Normal size right ventricle. Normal RV function. Left Atrium: The left atrium is mildly dilated. LA index 37.8ml/m2. Right Atrium: The right atrium is normal in size. Mitral Valve: There is mild thickening of the mitral valve leaflets. Mild to moderate mitral regurgitation. No mitral stenosis is present. There is no mitral valve vegetation. Aortic Valve: The aortic valve is tri-leaflet. There is no aortic valve regurgitation. No aortic valve stenosis is present. There is no aortic valve vegetation. Tricuspid Valve: The tricuspid valve is normal in appearance and function. Trivial to mild tricuspid valve regurgitation. The pulmonary artery pressure is normal. Right ventricular systolic pressure measures 27mmHg. No tricuspid valve vegetation. Pulmonic Valve: Pulmonary valve not well visualized. There is no pulmonic regurgitation seen. Aorta: Normal size aortic root. IVC: The IVC is normal sized. There is greater rosalino 50% respiratory excursion. Pericardium: No pericardial effusion. (No Signature Object) Patient: CHAR SHELL Study Date: 06/10/2018 Page 2 of 3 12:05 PM Patient: CHAR SHELL Study Date: 06/10/2018 Page 3 of 3 12:05 PM [id number]
--- NOTE | 2018-06-10 21:03 | PCMIDPN ---
Assessment/Plan: Assessment: MSSA post-operative infection with retained hardware. 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 Plan to continue cefazolin 2 g IV q 8 hours. Duration 8 weeks. Plan: 1) Continue IV ancef at 2g q 8 hours. 2) Picc line placement. 3) follow up repeat blood cultures from 06/09. 06/10/18 21:03 Subjective: Patient is resting comfortably in his bed. He continues to have some post-op pain but denies any new complaints. Appears to be tolerating the cefazolin without issues. Objective: cefazolin # 2 Vital Signs Temp Pulse Resp BP Pulse Ox 36.9 C 82 17 105/93 H 93 06/10/18 16:00 06/10/18 16:00 06/10/18 16:00 06/10/18 16:00 06/10/18 16:00 Microbiology 06/07/18 20:48 Blood Panel (PCR) - Final Blood S.aureus Methicillin Suscept. 06/07/18 17:46 Gram Stain - Final Back - Eswab 06/07/18 11:57 Gram Stain - Final Back - Aspirate Laboratory Results 06/08/18 04:31 06/08/18 04:31 06/09/18 06/10/18 06/11/18 05:59 05:59 05:59 Intake Total 3610 3000 1750 Output Total 3040 2415 1325 Balance 570 585 425 ESR 100 MM/HR (0-20) H 06/07/18 13:30 C-Reactive Protein 210.3 mg/L (<10.0) H 06/07/18 04:38 - Physical Exam General Appearance: WD/WN, alert, no apparent distress, non-toxic Respiratory: lungs clear, normal breath sounds, No respiratory distress Cardiac/Chest: regular rate, rhythm, No tachycardia, No systolic murmur Skin: normal color, warm/dry, No rash Neuro/Psych: alert, normal mood/affect, oriented x 3 ICD10 Worksheet Patient Problems: Problems Problem Status Onset L3 vertebral fracture Acute Right-sided low back pain with sciatica Acute Fracture of femoral neck, right, closed Acute Fusion of spine of lumbar region Acute
[2018-06-11] MEDS: ceFAZolin 2 GM/DEXTROSE 100 ML IV SCH ×3 (05:04→22:03)
[2018-06-11] MEDS: ACETAMINOPHEN 500 MG TAB PO SCH ×3 (05:06→21:59)
[2018-06-11] MEDS: FAMOTIDINE 20 MG TAB PO SCH (08:31)
[2018-06-11] MEDS: SENNOSIDES/DOCUSATE SODIUM TAB PO SCH ×2 (08:31→21:58)
[2018-06-11] MEDS: morphINE SR 15 MG TAB PO SCH ×3 (08:32→21:58)
[2018-06-11] MEDS: METHOCARBAMOL 750 MG TAB PO SCH ×3 (08:32→21:58)
[2018-06-11] MEDS: GABAPENTIN 400 MG CAP PO SCH ×3 (08:32→21:59)
[2018-06-11] MEDS: ENOXAPARIN 40 MG/0.4 ML SYR SC SCH (08:32)
[2018-06-11] MEDS: POLYETHYLENE GLYCOL 3350 17 GM PKT PO SCH (08:34)
[2018-06-11] MEDS: oxyCODONE IR 5 MG TAB PO PRN ×3 (08:39→14:02)
--- NOTE | 2018-06-11 11:00 | NEUSURGPN ---
Assessment/Plan: S/P lumbar wound I&D 06/07 POD#4 PARISH still productive with purulent drainage Plan: -Appreciate ID assistance. On Ancef 1 gram Q8. Cultures from 06/09 pending-no growth so far -Continue PARISH to bulb suction -PICC line -Patient with new bilateral hip discomfort this am which is similar to the pain he had prior to the I/D. Will continue to follow and will consider another I&D if worsens. -Will get baseline CRP, ESR and CBC today -Change dressing with Silver dressing only, no medipore tape -Patient discussed with Dr Castillo Please call with any questions/concerns Subjective: Bilateral hip pain Objective: AxO x3 GUERRERO x4 5/5 BUE, BLE PARISH patent Incision intact with 2mm area of drainage, no redness otherwise Neuro Check Frequency: per routine Urinary Catheter in Place: No - Physician Discussed Patient with : Adry Neurosurgery Physical Exam - Vitals, I&O, Labs I and O 06/10/18 06/11/18 06/12/18 05:59 05:59 05:59 Intake Total 3000 2870 Output Total 2415 2125 460 Balance 585 745 -460 Intake: Oral (ml) 2900 2650 IV Intake (ml) 100 IV Infused (ml) 220 ceFAZolin 2 GM/DEXTROSE 220 100 ml @ 200 mls/hr IV Q8HRS [facility] Rx#:[id number] Output: Urine (ml) 2350 2125 400 Bedpan 700 1325 Urinal 1650 800 400 PARISH Drain Output (ml) 65 60 Right Posterior Back 65 60 Other: Intake Quantity Yes Sufficient Number of Voids Bedpan 2 Urinal 1 2 1 Number of Stools Bedpan 1 Microbiology 06/07/18 20:48 Blood Panel (PCR) - Final Blood S.aureus Methicillin Suscept. 06/07/18 17:46 Gram Stain - Final Back - Eswab 06/07/18 11:57 Gram Stain - Final Back - Aspirate Vital Signs Temp Pulse Resp BP Pulse Ox 36.6 C 94 16 139/95 H 98 06/11/18 08:00 06/11/18 08:00 06/11/18 08:00 06/11/18 08:00 06/11/18 08:00 Laboratory Results 06/08/18 04:31 06/08/18 04:31 ICD10 Worksheet Patient Problems: Problems Problem Status Onset L3 vertebral fracture Acute Right-sided low back pain with sciatica Acute Fracture of femoral neck, right, closed Acute Fusion of spine of lumbar region Acute
[2018-06-11 12:48] LABS: PLATELET COUNT 550 10^3/uL (150-400)
--- NOTE | 2018-06-11 14:05 | PCMIDPN ---
Assessment/Plan: Assessment: MSSA post-operative infection of the lumbar spine with retained hardware. 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 Plan to continue cefazolin 2 g IV q 8 hours. Duration 8 weeks. Patient with worsening pain in the lumbar spine. Washout was offered to him by Neurosurgery earlier. Patient wishes to proceed with this. I will contact Neurosurgery regarding his decision. Plan: 1) Continue IV ancef at 2g q 8 hours. 2) follow up repeat blood cultures from 06/09. Subjective: Patient is reporting an 03/25 ongoing pain in his lower back. No fevers or chills. Patient was offered another washout by Neurosurgery earlier today. He held off at that point. Currently he is in so much discomfort he believes he wishes to proceed with another washout. Objective: Cefazolin # 3 Vital Signs Temp Pulse Resp BP Pulse Ox 36.6 C 94 16 139/95 H 98 06/11/18 08:00 06/11/18 08:00 06/11/18 08:00 06/11/18 08:00 06/11/18 08:00 Microbiology 06/07/18 20:48 Blood Panel (PCR) - Final Blood S.aureus Methicillin Suscept. 06/07/18 17:46 Gram Stain - Final Back - Eswab 06/07/18 11:57 Gram Stain - Final Back - Aspirate Laboratory Results 06/11/18 12:15 06/08/18 04:31 06/10/18 06/11/18 06/12/18 05:59 05:59 05:59 Intake Total 3000 2870 Output Total 2415 2125 810 Balance 585 745 -810 ESR 64 MM/HR (0-20) H 06/11/18 12:15 C-Reactive Protein 66.2 mg/L (<10.0) H 06/11/18 12:15 - Physical Exam General Appearance: WD/WN, alert, no apparent distress, non-toxic Respiratory: lungs clear, normal breath sounds, No respiratory distress Cardiac/Chest: regular rate, rhythm, No bradycardia, No irregularly irregular Skin: normal color, warm/dry, No rash Neuro/Psych: alert, normal mood/affect, oriented x 3 ICD10 Worksheet Patient Problems: Problems Problem Status Onset L3 vertebral fracture Acute Right-sided low back pain with sciatica Acute Fracture of femoral neck, right, closed Acute Fusion of spine of lumbar region Acute
--- NOTE | 2018-06-11 14:19 | HOSPPROG ---
Hospitalist Progress Note Assessment/Plan: 62 yo M presenting with severe back pain with s/p lumbosacral surgery, kyphoplasty and now post op wound infection # MSSA wound infection/bacteremia: -with retained hardware and therefore being treated as vertebral osteomyelitis -seen by NSG today and per patient report plan for repeat washout today or in the morning -appreciate ID, continue ancef -cultures from 06/09 still with ngtd, last positive from 06/07 #L4-S1 TLIF and L3 kyphoplasty # leukocytosis: 2/2 infection, following *acute on chronic low back pain: worsening today per patient report, patient believes it is due to worsening infection as above *chronic pain on continuous chronic opiates: making pain control more challenging as above *anemia: stable *hyponatremia: improved *hypocalcemia: resolved * dispo: IP status, will need to go to snf versus IP rehab Patient new to my care. Old records reviewed and summarized as above. Subjective: patient states his pain is worse today, he feels the infection is spreading, the pain goes down his right leg Objective: Vital Signs Temp Pulse Resp BP Pulse Ox 36.6 C 94 16 139/95 H 98 06/11/18 08:00 06/11/18 08:00 06/11/18 08:00 06/11/18 08:00 06/11/18 08:00 Microbiology 06/07/18 20:48 Blood Panel (PCR) - Final Blood S.aureus Methicillin Suscept. 06/07/18 17:46 Gram Stain - Final Back - Eswab 06/07/18 11:57 Gram Stain - Final Back - Aspirate Laboratory Results 06/11/18 12:15 06/08/18 04:31 06/10/18 06/11/18 06/12/18 05:59 05:59 05:59 Intake Total 3000 2870 Output Total 2415 2125 810 Balance 585 745 -810 awake alert anicteric op clear rrr no mrg cta b soft nt nd no cce warm dry well perfused oriented appropriate - Time Spent With Patient Time Spent with Patient: greater than 35 minutes Time Spent with Patient: Greater than 35 minutes spent on this patients care, greater than 50% of time spent counseling, educating, and coordinating care regarding the above mentioned plan. ICD10 Worksheet Patient Problems: Problems Problem Status Onset Fracture of femoral neck, right, closed Acute Fusion of spine of lumbar region Acute Right-sided low back pain with sciatica Acute L3 vertebral fracture Acute
[2018-06-11] MEDS ORDERED: EPINEPHrine 1 MG/ML INJ ONE (16:20)
[2018-06-11] MEDS ORDERED: BUPIVACAINE 0.25% 30 ML SDV ONE (16:20)
[2018-06-11] MEDS ORDERED: VANCOMYCIN 1 GM VIAL ONE (16:21)
[2018-06-11] MEDS ORDERED: BACITRACIN 50,000 UNITS/10 ML SYR IRR ONE (16:21)
[2018-06-11] MEDS ORDERED: CHLORHEXIDINE GLUC HIBICLENS 118 ML BTL TP ONE (16:37)
[2018-06-11] MEDS ORDERED: MIDAZOLAM 2 MG/2 ML VIAL ONE (16:48)
[2018-06-11] MEDS ORDERED: MIDAZOLAM 2 MG/2 ML VIAL IVP ONE (16:49)
--- NOTE | 2018-06-11 16:49 | PDANEPAE ---
ANE History of Present Illness 62 yo for i &d L spine ANE Past Medical History - Cardiovascular History Hx Hypertension: No Hx Arrhythmias: No Hx Chest Pain: No Hx Coronary Artery / Peripheral Vascular Disease: No Hx CHF / Valvular Disease: No Hx Palpitations: No Cardiovascular History Comment: SYNCOPE ISSUE 20 PLUS YRS AGO. WORK UP NEG - Pulmonary History Hx COPD: No Hx Asthma/Reactive Airway Disease: No Hx Recent Upper Respiratory Infection: No Hx Oxygen in Use at Home: No Hx Sleep Apnea: No Sleep Apnea Screening Result - Last Documented: Positive - Neurologic History Hx Cerebrovascular Accident: No Hx Seizures: No Hx Dementia: No - Endocrine History Hx Diabetes: No - Renal History Hx Renal Disorders: No - Liver History Hx Hepatic Disorders: No - Neurological & Psychiatric Hx Hx Neurological and Psychiatric Disorders: No - Cancer History Hx Cancer: Yes Cancer History Comment: MELANOMA - Congenital Disorder History Hx Congenital Disorders: No - GI History Hx Gastrointestinal Disorders: No - Other Health History Other Health History: DJD - Chronic Pain History Chronic Pain: Yes (LUMBAR REGION) - Surgical History Prior Surgeries: RT TOTAL HIP 08/2017. NASAL. HEMORRHOIDS. SKIN MELANOMA ANE Review of Systems Review of Systems: - Exercise capacity METS (RN): 4 METS ANE Patient History - Allergies Allergies/Adverse Reactions: No Known Drug Allergies Allergy (Unknown, Verified 06/02/18 16:32) - Home Medications Home Medications: Diazepam [Valium 5 MG (*)] 5 mg PO Q8H PRN 06/02/18 [Last Taken Unknown] Methocarbamol [Robaxin 750 mg (*)] 750 mg PO QID PRN 06/02/18 [Last Taken ] oxyCODONE IR [Oxycodone Ir (*)] 5 - 10 mg PO Q6H PRN 06/02/18 [Last Taken ] - NPO status NPO Status: no food or drink >8 hours NPO Since - Liquids (Date): 05/24/18 NPO Since - Liquids (Time): 09:00 NPO Since - Solids (Date): 06/11/18 NPO Since - Solids (Time): 09:00 - Anes Hx Anes Hx: no prior problems - Smoking Hx Smoking Status: Never smoked - Alcohol Use Alcohol Use: Rarely ANE Labs/Vital Signs - Labs Result Diagrams: 06/11/18 12:15 06/08/18 04:31 - Vital Signs Blood Pressure: 109/78 Heart Rate: 73 Respiratory Rate: 16 O2 Sat (%): 98 Height: 6 ft Weight: 79.379 kg ANE Physical Exam - Airway Neck exam: FROM Mallampati Score: Class 2 - Pulmonary Pulmonary: no respiratory distress - Cardiovascular Cardiovascular: regular rate and rhythym - ASA Status ASA Status: II ANE Anesthesia Plan Anesthesia Plan: general endotracheal anesthesia
[2018-06-11] MEDS ORDERED: PROPOFOL/EMULSION 500 MG/50 ML BOTTLE IV ONE (16:53)
[2018-06-11] MEDS ORDERED: REMIFENTANIL HCL 1 MG VIAL ONE (16:53)
[2018-06-11] MEDS ORDERED: fentaNYL 100 MCG/2 ML INJ ONE ×2 (16:53→18:15)
[2018-06-11] MEDS ORDERED: ROCURONIUM 50 MG/5 ML VIAL ONE (16:54)
[2018-06-11] MEDS ORDERED: ONDANSETRON 4 MG/2 ML VIAL IVP PRN (17:37)
[2018-06-11] MEDS ORDERED: NALOXONE HCL 0.4 MG/ML INJ IVP PRN (17:37)
[2018-06-11] MEDS ORDERED: PROMETHAZINE HCL 25 MG/ML INJ IVP PRN (17:37)
[2018-06-11] MEDS ORDERED: BACITRACIN ZINC 14.2 GM OINTTUBE TP ONE (17:49)
[2018-06-11] MEDS ORDERED: VANCOMYCIN 1.5 GM in NS 250 ML IV ONE (18:00)
--- NOTE | 2018-06-11 18:03 | POSTOPPROG ---
Post Op Note Date of Operation: 06/11/18 Surgeon: José Luis Rider Family Therapist: Yarely Sweet NP Anesthesiologist: Tato Anesthesia: GET(General Endotracheal) Pre-op Diagnosis: Lumbar wound infection Procedure: I&D lumbar wound Inf/Abcess present in the surg proc area at time of surgery?: Yes Depth: Deep Incisional (Fascial) EBL: Minimal Total fluids administered: see anesthesia Complications: none Drains: Wesley Hood Date of Surgery: 06/11/18 Post Op Day: 0 Assessment/Plan: S/P lumbar wound I&D repeat 06/11 Plan: -Appreciate ID assistance, 1gm vanco powder placed intraop in wound -Continue PARISH to bulb suction -If dressing change is needed, only use Silver dressing-limit medipore tape -Advance diet as tolerated Please call with any questions/concerns Subjective: Waking up in pacu Objective: Waking up in pacu GUERRERO x4 5/5 BUE, BLE Dressing CDI PARISH patent Appropriate Neuro Check Frequency Ordered: Yes
[2018-06-11] MEDS: fentaNYL 100 MCG/2 ML INJ IVP PRN ×2 (18:20→18:25)
[2018-06-11] MEDS ORDERED: HYDROmorphONE/DILAUDID 2 MG/ML INJ ONE (18:32)
[2018-06-11] MEDS: HYDROmorphONE/DILAUDID 2 MG/ML INJ IVP PRN ×4 (18:36→19:19)
--- NOTE | 2018-06-11 20:52 | GOP ---
DATE OF OPERATION: 06/11/2018 SURGEON: José Luis Rider MD NEUROSURGEON: José Luis Rider MD. ERP ANALYST: Yarely Sweet NP. PREOPERATIVE DIAGNOSIS: Recurrent postoperative wound infection. POSTOPERATIVE DIAGNOSIS: Recurrent postoperative wound infection. PROCEDURE PERFORMED: Redo incision and drainage of complex postoperative lumbar wound. FINDINGS: ESTIMATED BLOOD LOSS: Trace. INDICATIONS: The patient is a 62-year-old man who recently underwent a multilevel lumbar decompressi on and fusion complicated by an infection that required a washout a couple days ago. The patient imp roved significantly but now is worsening again and presents now for re incision and drainage. DESCRIPTION OF PROCEDURE: After informed consent was obtained, the patient was taken to the operatin g room and placed in the prone position. The lumbosacral area was prepped and draped in a sterile fa shion. The prior incision was carefully opened and extensively debrided and washed out. This was pe rformed with double concentrated bacitracin irrigation. A gram of vancomycin powder was also placed in the wound carefully. A drain was placed, and the wound was reclosed in a layered fashion using in terrupted Vicryl sutures followed by lorene on the skin. COMPLICATIONS: None. DISPOSITION: The patient is currently in the process of being repositioned for extubation. /[id number]/MODL
[2018-06-12] MEDS: oxyCODONE IR 5 MG TAB PO PRN ×5 (01:53→20:26)
[2018-06-12] MEDS: ceFAZolin 2 GM/DEXTROSE 100 ML IV SCH ×3 (05:10→22:16)
[2018-06-12 05:36] LABS: PLATELET COUNT 493 10^3/uL (150-400)
[2018-06-12] MEDS: ACETAMINOPHEN 500 MG TAB PO SCH ×3 (05:38→22:00)
[2018-06-12] MEDS: FAMOTIDINE 20 MG TAB PO SCH (09:30)
[2018-06-12] MEDS: morphINE SR 15 MG TAB PO SCH ×3 (09:30→22:01)
[2018-06-12] MEDS: SENNOSIDES/DOCUSATE SODIUM TAB PO SCH ×2 (09:30→22:00)
[2018-06-12] MEDS: METHOCARBAMOL 750 MG TAB PO SCH ×3 (09:30→22:01)
[2018-06-12] MEDS: GABAPENTIN 400 MG CAP PO SCH ×3 (09:31→22:01)
[2018-06-12] MEDS: ENOXAPARIN 40 MG/0.4 ML SYR SC SCH (09:31)
[2018-06-12] MEDS: POLYETHYLENE GLYCOL 3350 17 GM PKT PO SCH (09:32)
--- NOTE | 2018-06-12 09:50 | NEUSURGPN ---
Date of Surgery: 06/11/18 Post Op Day: 1 Assessment/Plan: S/P lumbar wound I&D repeat 06/11 POD#1 Plan: -Appreciate ID assistance, 1gm vanco powder placed intraop in wound -Continue PARISH to bulb suction -If dressing change is needed, only use Silver dressing-limit medipore tape -Patient reports improvement with bilateral hip symptoms post I&D yesterday, will continue to follow exam. Discussed patient with Dr Castillo Please call with any questions/concerns Subjective: Pain improved, doing well this am Objective: AxOx3 MAEx4 5/5 BUE, BLE Sensation intact to light touch BLE Dressing CDI, Parish dressing CDI PARISH patent-SA fluid draining Neuro Check Frequency: per routine Urinary Catheter in Place: No - Physician Discussed Patient with DrDevika: Adry Neurosurgery Physical Exam - Vitals, I&O, Labs I and O 06/11/18 06/12/18 06/13/18 05:59 05:59 05:59 Intake Total 2870 1370 Output Total 2125 3440 Balance 745 -2070 Weight 79.379 kg Intake: Oral (ml) 2650 1260 IV Infused (ml) 220 110 ceFAZolin 2 GM/DEXTROSE 220 110 100 ml @ 200 mls/hr IV Q8HRS [facility] Rx#:[id number] Output: Urine (ml) 2125 3350 Bedpan 1325 Urinal 800 3350 PARISH Drain Output (ml) 90 Right Posterior Back 90 Other: Intake Quantity Yes Yes Sufficient Number of Voids Urinal 2 1 Number of Stools Bedpan 1 Microbiology 06/07/18 20:48 Blood Panel (PCR) - Final Blood S.aureus Methicillin Suscept. Vital Signs Temp Pulse Resp BP Pulse Ox 36.4 C 77 14 118/91 H 98 06/12/18 08:00 06/12/18 08:00 06/12/18 08:00 06/12/18 08:00 06/12/18 08:00 Laboratory Results 06/12/18 05:00 06/08/18 04:31 ICD10 Worksheet Patient Problems: Problems Problem Status Onset L3 vertebral fracture Acute Right-sided low back pain with sciatica Acute Fracture of femoral neck, right, closed Acute Fusion of spine of lumbar region Acute
--- NOTE | 2018-06-12 12:27 | PCMIDPN ---
Assessment/Plan: Assessment: MSSA post-operative infection of the lumbar spine with retained hardware. 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 Plan to continue cefazolin 2 g IV q 8 hours. Duration 8 weeks. Washout last night secondary to worsening pain in the lumbar spine. Patient feels much better this morning. Plan: 1) Continue IV ancef at 2g q 8 hours. 2) follow up repeat blood cultures from 06/09. 06/12/18 12:25 Subjective: Patient continues to do well. He is sitting up in a chair on his laptop computer. He notes no fevers or chills. States that his pain level is lumbar spine is significantly decreased after his procedure yesterday evening. Objective: Cefazolin # 4 Vital Signs Temp Pulse Resp BP Pulse Ox 36.4 C 77 14 118/91 H 98 06/12/18 08:00 06/12/18 08:00 06/12/18 08:00 06/12/18 08:00 06/12/18 08:00 Microbiology 06/07/18 20:48 Blood Panel (PCR) - Final Blood S.aureus Methicillin Suscept. Laboratory Results 06/12/18 05:00 06/08/18 04:31 06/11/18 06/12/18 06/13/18 05:59 05:59 05:59 Intake Total 2870 1370 Output Total 2125 3440 300 Balance 745 -2070 -300 ESR 89 MM/HR (0-20) H 06/12/18 05:00 C-Reactive Protein 63.5 mg/L (<10.0) H 06/12/18 05:00 - Physical Exam General Appearance: WD/WN, alert, no apparent distress, non-toxic Respiratory: lungs clear, normal breath sounds, No respiratory distress Cardiac/Chest: regular rate, rhythm, No tachycardia Skin: normal color, warm/dry, No rash Neuro/Psych: alert, normal mood/affect, oriented x 3 ICD10 Worksheet Patient Problems: Problems Problem Status Onset L3 vertebral fracture Acute Right-sided low back pain with sciatica Acute Fracture of femoral neck, right, closed Acute Fusion of spine of lumbar region Acute
--- NOTE | 2018-06-12 15:19 | HOSPPROG ---
Hospitalist Progress Note Assessment/Plan: 62 yo M presenting with severe back pain with s/p lumbosacral surgery, kyphoplasty and now post op wound infection # MSSA wound infection/bacteremia: -with retained hardware and therefore being treated as vertebral osteomyelitis -s/p repeat washout yesterday and patient notes that he is doing better overall today -appreciate ID, continue ancef -cultures from 06/09 still with ngtd, last positive from 06/07 #L4-S1 TLIF and L3 kyphoplasty # leukocytosis: 2/2 infection, following *acute on chronic low back pain: worsening today per patient report, patient believes it is due to worsening infection as above *chronic pain on continuous chronic opiates: making pain control more challenging as above *anemia: stable *hyponatremia: improved *hypocalcemia: resolved * dispo: IP status, will need to go to snf versus IP rehab Subjective: no significan tovernight events, patient overall feelign better today Objective: Vital Signs Temp Pulse Resp BP Pulse Ox 36.4 C 77 14 118/91 H 98 06/12/18 08:00 06/12/18 08:00 06/12/18 08:00 06/12/18 08:00 06/12/18 08:00 Laboratory Results 06/12/18 05:00 06/08/18 04:31 06/11/18 06/12/18 06/13/18 05:59 05:59 05:59 Intake Total 2870 1370 Output Total 2125 3440 300 Balance 745 -2070 -300 awake alert anicteric op clear rrr no mrg cta b soft nt nd no cce warm dry well perfused oriented appropriate ICD10 Worksheet Patient Problems: Problems Problem Status Onset L3 vertebral fracture Acute Right-sided low back pain with sciatica Acute Fracture of femoral neck, right, closed Acute Fusion of spine of lumbar region Acute
[2018-06-13] MEDS: oxyCODONE IR 5 MG TAB PO PRN ×5 (06:07→21:23)
[2018-06-13] MEDS: ceFAZolin 2 GM/DEXTROSE 100 ML IV SCH ×3 (06:08→21:24)
[2018-06-13] MEDS: ACETAMINOPHEN 500 MG TAB PO SCH ×3 (06:08→22:25)
--- NOTE | 2018-06-13 07:23 | SOAPPROG ---
SOAP Progress Note Assessment/Plan: Assessment: 62 yo M sp L4-S1 TLIF and L3 kyphoplasty, POD #2 from redo incision and drainage of L4-S1 wound infection Plan: neuro: stable, leg pain improved MSSA on cultures, on ancef, PICC in place, per ID scd/rogelio/lovenox for dvt prophylaxis PARISH x 1, will keep until output is minimal Appreciate Hospitalists help with medical issues likely to need snf placement when ready lso brace when out of bed PT/OT DR Castillo saw patient this am please call with neuro changes 06/07/18 07:32 06/08/18 08:00 06/08/18 08:04 06/09/18 07:21 06/13/18 07:22 Subjective: continued back pain, leg pain better. no weakness. Objective: Vital Signs Temp Pulse Resp BP Pulse Ox 36.8 C 85 16 125/91 H 92 06/13/18 00:00 06/13/18 00:00 06/13/18 00:00 06/13/18 00:00 06/13/18 00:00 Laboratory Results 06/12/18 05:00 06/08/18 04:31 06/12/18 06/13/18 06/14/18 05:59 05:59 05:59 Intake Total 1370 Output Total 3440 1725 Balance -2070 -1725 AAOX4, +FC PERRL, EOMI, no facial droop 5/5 + light touch C/D/I ICD10 Worksheet Patient Problems: Problems Problem Status Onset L3 vertebral fracture Acute Right-sided low back pain with sciatica Acute Fracture of femoral neck, right, closed Acute Fusion of spine of lumbar region Acute
[2018-06-13] MEDS: ENOXAPARIN 40 MG/0.4 ML SYR SC SCH (08:30)
[2018-06-13] MEDS: FAMOTIDINE 20 MG TAB PO SCH (08:30)
[2018-06-13] MEDS: GABAPENTIN 400 MG CAP PO SCH ×3 (08:30→21:22)
[2018-06-13] MEDS: SENNOSIDES/DOCUSATE SODIUM TAB PO SCH ×2 (08:30→21:22)
[2018-06-13] MEDS: morphINE SR 15 MG TAB PO SCH (08:31)
[2018-06-13] MEDS: METHOCARBAMOL 750 MG TAB PO SCH ×3 (08:31→21:22)
[2018-06-13] MEDS: POLYETHYLENE GLYCOL 3350 17 GM PKT PO SCH (08:33)
[2018-06-13] MEDS: oxyCODONE CR 15 MG TAB PO SCH ×2 (12:20→21:22)
--- NOTE | 2018-06-13 14:05 | ASMTCMCOM ---
CM Note CM Note Notes: Ortho/Neuro CM, Suly, spoke with Ann-Marie at [facility] today. Eval has not been completed today as of yet. Ann-Marie states she will try and get to it today and will then follow-up with CM. Will continue to follow. Plan: [facility] vs SNF ([facility]) Date Signed: 06/13/2018 02:05 PM Electronically Signed By:Crys Womack RN
--- NOTE | 2018-06-13 15:03 | PCMIDPN ---
Assessment/Plan: Assessment: MSSA post-operative infection of the lumbar spine with retained hardware. 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 Plan to continue cefazolin 2 g IV q 8 hours. Duration 8 weeks. Washout 2 days ago secondary to worsening pain in the lumbar spine. Patient felt better yesterday but today had more significant back pain. Discussed case with Dr. Drake Will watch his symptoms going forward rather than take him back for 3rd washout at this point. Plan: 1) Continue IV ancef at 2g q 8 hours. 2) follow up repeat blood cultures from 06/09. 06/12/18 12:25 06/13/18 15:01 Subjective: Patient is sitting up in his hospital chair. He relates having some significant discomfort related to back spasms in the lumbar area earlier today. No fevers or chills. No rash. Objective: Cefazolin # 5 Vital Signs Temp Pulse Resp BP Pulse Ox 36.8 C 94 17 111/88 H 96 06/13/18 08:00 06/13/18 08:00 06/13/18 08:00 06/13/18 08:00 06/13/18 08:00 Microbiology 06/07/18 17:46 Gram Stain - Final Back - Eswab 06/07/18 11:57 Gram Stain - Final Back - Aspirate 06/07/18 20:48 Blood Culture - Final Blood 06/07/18 20:48 Blood Culture - Final Blood Staphylococcus Aureus Blood Panel (PCR) - Final S.aureus Methicillin Suscept. Laboratory Results 06/12/18 05:00 06/08/18 04:31 06/12/18 06/13/18 06/14/18 05:59 05:59 05:59 Intake Total 1370 Output Total 3440 1725 600 Balance -2070 -1725 -600 ESR 89 MM/HR (0-20) H 06/12/18 05:00 C-Reactive Protein 63.5 mg/L (<10.0) H 06/12/18 05:00 - Physical Exam General Appearance: WD/WN, alert, apparent distress (Mild distress secondary to back pain), non-toxic Cardiac/Chest: regular rate, rhythm, No tachycardia Skin: normal color, warm/dry, No rash Neuro/Psych: alert, normal mood/affect, oriented x 3 ICD10 Worksheet Patient Problems: Problems Problem Status Onset L3 vertebral fracture Acute Right-sided low back pain with sciatica Acute Fracture of femoral neck, right, closed Acute Fusion of spine of lumbar region Acute
--- NOTE | 2018-06-13 15:10 | ASMTCMCOM ---
CM Note CM Note Notes: Spoke with Ann-Marie Johns from [facility]patient Re[facility] and she states they are having to file an appeal with insurance as [facility] denied patient services saying he did not need this level of care. She will send the new clinical information to see if they will approve services based on new information. CM to contact Alexsandra tomorrow to determine next steps. CM will follow. Date Signed: 06/13/2018 03:10 PM Electronically Signed By:Suly Miranda LCSW
--- NOTE | 2018-06-13 21:39 | HOSPPROG ---
Hospitalist Progress Note Assessment/Plan: 62 yo M presenting with severe back pain with s/p lumbosacral surgery, kyphoplasty and now post op wound infection # MSSA wound infection/bacteremia: -with retained hardware and therefore being treated as vertebral osteomyelitis -s/p repeat washout yesterday and patient notes that he is doing better overall today -appreciate ID, continue ancef -cultures from 06/09 still with ngtd, last positive from 06/07 #L4-S1 TLIF and L3 kyphoplasty # leukocytosis: 2/2 infection, following *acute on chronic low back pain: worsening today per patient report, patient believes it is due to worsening infection as above adjusted pain meds started oxy CR *chronic pain on continuous chronic opiates: making pain control more challenging as above *anemia: stable *hyponatremia: improved *hypocalcemia: resolved * dispo: IP status, will need to go to snf versus IP rehab Subjective: Still having pain. Eager to get better. Objective: Vital Signs Temp Pulse Resp BP Pulse Ox 36.8 C 98 17 103/77 96 06/13/18 15:54 06/13/18 15:54 06/13/18 15:54 06/13/18 15:54 06/13/18 15:54 Microbiology 06/07/18 17:46 Gram Stain - Final Back - Eswab 06/07/18 11:57 Gram Stain - Final Back - Aspirate 06/07/18 20:48 Blood Culture - Final Blood 06/07/18 20:48 Blood Culture - Final Blood Staphylococcus Aureus Blood Panel (PCR) - Final S.aureus Methicillin Suscept. Laboratory Results 06/12/18 05:00 06/08/18 04:31 06/12/18 06/13/18 06/14/18 05:59 05:59 05:59 Intake Total 1370 1220 Output Total 3440 1725 1200 Balance -2069 20 - Physical Exam Constitutional: appears nourished, chronically ill appearing, uncomfortable Eyes: PERRL, anicteric sclera, EOMI Ears, Nose, Mouth, Throat: moist mucous membranes, hearing normal, ears appear normal Cardiovascular: No JVD, No edema Respiratory: no respiratory distress, reduced air movement Gastrointestinal: normoactive bowel sounds, No ascites Skin: warm, normal color Musculoskeletal: pain with ROM, generalized weakness Neurologic: AAOx3 Psychiatric: not anxious, not encephalopathic, anxious ICD10 Worksheet Patient Problems: Problems Problem Status Onset Fracture of femoral neck, right, closed Acute Fusion of spine of lumbar region Acute Right-sided low back pain with sciatica Acute L3 vertebral fracture Acute
[2018-06-14] MEDS: oxyCODONE IR 5 MG TAB PO PRN ×5 (01:47→20:53)
[2018-06-14] MEDS: ceFAZolin 2 GM/DEXTROSE 100 ML IV SCH ×3 (05:24→20:56)
[2018-06-14] MEDS: ACETAMINOPHEN 500 MG TAB PO SCH ×3 (06:14→22:14)
[2018-06-14] MEDS: ENOXAPARIN 40 MG/0.4 ML SYR SC SCH ×2 (07:55→09:55)
--- NOTE | 2018-06-14 08:37 | SOAPPROG ---
SOAP Progress Note Assessment/Plan: Assessment: 62 yo M sp L4-S1 TLIF and L3 kyphoplasty, POD #3 from redo incision and drainage of L4-S1 wound infection Plan: neuro: stable, some hip pain with walking yesterday. Pain has not worsened today. Dr Castillo had discussed a redo washout but at this point he seems to be maintaining and not getting worse. We will continue to follow him for now and can do another washout if needed. MSSA on cultures, on ancef, PICC in place, per ID scd/rogelio/lovenox for dvt prophylaxis PARISH x 1, will keep until output is minimal Appreciate Hospitalists help with medical issues likely to need snf placement when ready lso brace when out of bed PT/OT please call with neuro changes 06/07/18 07:32 06/08/18 08:00 06/08/18 08:04 06/09/18 07:21 06/13/18 07:22 06/14/18 08:35 Subjective: continued back pain and hip pain, no weakness, no leg pain. Objective: Vital Signs Temp Pulse Resp BP Pulse Ox 37.0 C 81 14 133/95 H 92 06/14/18 08:00 06/14/18 08:00 06/14/18 08:00 06/14/18 08:00 06/14/18 08:00 Microbiology 06/07/18 17:46 Gram Stain - Final Back - Eswab 06/07/18 11:57 Gram Stain - Final Back - Aspirate 06/07/18 20:48 Blood Culture - Final Blood 06/07/18 20:48 Blood Culture - Final Blood Staphylococcus Aureus Blood Panel (PCR) - Final S.aureus Methicillin Suscept. Laboratory Results 06/12/18 05:00 06/08/18 04:31 06/13/18 06/14/18 06/15/18 05:59 05:59 05:59 Intake Total 2520 Output Total 1725 3755 400 Balance -1725 -1235 -400 AAOx4, +FC PERRL, EOMI, no facial droop 5/5 + light touch C/D/I ICD10 Worksheet Patient Problems: Problems Problem Status Onset L3 vertebral fracture Acute Right-sided low back pain with sciatica Acute Fracture of femoral neck, right, closed Acute Fusion of spine of lumbar region Acute
--- NOTE | 2018-06-14 08:38 | PCMIDPN ---
Assessment/Plan: # MSSA post op infection s/p L4-S1 TLIF and L3 kyphoplasty and MSSA bacteremia, AF since 06/09. Back pain seems to have stabilized. CRP trending down. TTE negative. --PICC placed 06/10 --continue high dose ancef, 08/05/18 stop date (8 weeks). --agree w holding off on 3rd washout today as seems to be getting a bit better # leukocytosis related to wound infection --check CBC tomorrow Meds Ancef 2gm IV q8h #6 microbiology 06/07 wound swab: GS MSSA 06/07 wound aspiration: GS:MSSA 06/07 OR swab: GS MSSA 06/07 blood cx 12 MSSA 06/09 blood cx (2) NGTD Subjective: patient still states his back pain is fairly severe but it is a tiny bit better no obvious side effects to antibiotics Objective: Vital Signs Temp Pulse Resp BP Pulse Ox 37.0 C 81 14 133/95 H 92 06/14/18 08:00 06/14/18 08:00 06/14/18 08:00 06/14/18 08:00 06/14/18 08:00 Microbiology 06/07/18 17:46 Gram Stain - Final Back - Eswab 06/07/18 11:57 Gram Stain - Final Back - Aspirate 06/07/18 20:48 Blood Culture - Final Blood 06/07/18 20:48 Blood Culture - Final Blood Staphylococcus Aureus Blood Panel (PCR) - Final S.aureus Methicillin Suscept. Laboratory Results 06/12/18 05:00 06/08/18 04:31 06/13/18 06/14/18 06/15/18 05:59 05:59 05:59 Intake Total 2520 Output Total 1725 3755 400 Balance -1725 -1235 -400 ESR 89 MM/HR (0-20) H 06/12/18 05:00 C-Reactive Protein 63.5 mg/L (<10.0) H 06/12/18 05:00 - Physical Exam General Appearance: alert, no apparent distress Respiratory: lungs clear, No accessory muscle use Neck: supple Cardiac/Chest: regular rate, rhythm Abdomen: non-tender, soft Male Genitalia: No hammond Back: other (incision a bit pink but not clearly erythematous, PARISH drain in place , minimal output) Skin: No rash, No embolic lesions Neuro/Psych: alert, normal mood/affect, oriented x 3 - Line/s RUE PICC Lines: No drainage, No erythema - Time Spent With Patient Time Spent with Patient: greater than 35 minutes Time Spent with Patient: Greater than 35 minutes spent on this patients care, greater than 50% of time spent counseling, educating, and coordinating care regarding the above mentioned plan. ICD10 Worksheet Patient Problems: Problems Problem Status Onset L3 vertebral fracture Acute Right-sided low back pain with sciatica Acute Fracture of femoral neck, right, closed Acute Fusion of spine of lumbar region Acute
[2018-06-14] MEDS: oxyCODONE CR 15 MG TAB PO SCH ×2 (09:47→20:53)
[2018-06-14] MEDS: GABAPENTIN 400 MG CAP PO SCH ×3 (09:52→21:01)
[2018-06-14] MEDS: SENNOSIDES/DOCUSATE SODIUM TAB PO SCH ×2 (09:52→20:54)
[2018-06-14] MEDS: FAMOTIDINE 20 MG TAB PO SCH (09:53)
[2018-06-14] MEDS: METHOCARBAMOL 750 MG TAB PO SCH ×3 (09:53→21:01)
[2018-06-14] MEDS: POLYETHYLENE GLYCOL 3350 17 GM PKT PO SCH (10:21)
--- NOTE | 2018-06-14 14:32 | HOSPPROG ---
Hospitalist Progress Note Assessment/Plan: 62 yo M presenting with severe back pain with s/p lumbosacral surgery, kyphoplasty and now post op wound infection # MSSA wound infection/bacteremia: -with retained hardware and therefore being treated as vertebral osteomyelitis -s/p repeat washout yesterday and patient notes that he is doing better overall today -appreciate ID, continue ancef -cultures from 06/09 still with ngtd, last positive from 06/07 #L4-S1 TLIF and L3 kyphoplasty # leukocytosis: 2/2 infection, following *acute on chronic low back pain: worsening today per patient report, patient believes it is due to worsening infection as above adjusted pain meds started oxy CR *chronic pain on continuous chronic opiates: making pain control more challenging as above *anemia: stable *hyponatremia: improved *hypocalcemia: resolved * dispo: IP status, will need to go to snf versus IP rehab appealing insurance denial for inpt rehab D/W CM and insurance Subjective: Pain controlled better today. Anxious about DC. No other issues. Objective: Vital Signs Temp Pulse Resp BP Pulse Ox 37.0 C 81 14 133/95 H 92 06/14/18 08:00 06/14/18 08:00 06/14/18 08:00 06/14/18 08:00 06/14/18 08:00 Microbiology 06/07/18 17:46 Gram Stain - Final Back - Eswab 06/07/18 11:57 Gram Stain - Final Back - Aspirate 06/09/18 10:40 Blood Culture - Final Blood 06/09/18 06:50 Blood Culture - Final Blood Laboratory Results 06/12/18 05:00 06/08/18 04:31 06/13/18 06/14/18 06/15/18 05:59 05:59 05:59 Intake Total 2520 Output Total 0661 5786 957 Balance -5312 -4467 -372 - Physical Exam Constitutional: no apparent distress, appears nourished, uncomfortable Eyes: PERRL, anicteric sclera, EOMI Ears, Nose, Mouth, Throat: moist mucous membranes, hearing normal, ears appear normal Cardiovascular: No JVD, No tachycardia, No edema Respiratory: no respiratory distress, no rales or rhonchi, reduced air movement Gastrointestinal: normoactive bowel sounds, No tenderness, No ascites Skin: warm, normal color, No mottled Musculoskeletal: joint tenderness, pain with ROM, generalized weakness Neurologic: AAOx3 Psychiatric: interacting appropriately, not anxious, not encephalopathic, thought process linear ICD10 Worksheet Patient Problems: Problems Problem Status Onset Fracture of femoral neck, right, closed Acute Fusion of spine of lumbar region Acute Right-sided low back pain with sciatica Acute L3 vertebral fracture Acute
--- NOTE | 2018-06-14 15:42 | ASMTCMCOM ---
CM Note CM Note Notes: Pt request for [facility] inpatient rehab still not approved by [facility] ([employer] denial letter is in chart). Today Hospitalist Tim attempted a peer to peer appeal and was informed the soonest the peer to peer can be scheduled with Dr. Palencia is 12:00 on 06/16/18. Peer to peer number is [phone], ref # [id number]. Pt updated, pt reports he is confident the appeal will be granted. Pt to stay until appeal. Alexsandra in admissions at [facility] inpatient rehab updated. [facility] updated, they will keep him on an admission list in case inpatient rehab is denied again. CM to follow. Date Signed: 06/14/2018 03:41 PM Electronically Signed By:HITESH Blake
--- NOTE | 2018-06-14 15:57 | ASMTCMCOM ---
CM Note CM Note Notes: Entered in error Date Signed: 06/15/2018 12:08 PM Electronically Signed By:HITESH Blake
--- NOTE | 2018-06-14 16:55 | PDIAF ---
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 PICC Care - Routine: Yes - Orders Services needed: Home Care, Registered Nurse Home Care Face to Face: I certify that this patient was under my care and that I had the required [id number] encounter meeting the encounter requirements on the discharge day. My findings support the fact that the patient is homebound as defined in Home Care Face to Face Continued: CMS Chapter 7 Medicare Benefits Manual 30.1.1 , The condition of the patient is such that there exists a normal inability to leave home and consequently, leaving home would require a considerable and taxing effort. - Labs/Radiology CBC w/diff Date: 06/13/18 (Weekly Wednesday) CMP Date: 06/13/18 (Weekly Wednesday) CRP Date: 06/13/18 (Weekly Wednesday) Call or Fax Lab and Imaging Results to: Zayra Lugo MD [facility] for Infectious Diseases at fax [phone] - Follow Up Care Current Providers and Referrals: Patient,NotPresent [Unknown] - As per Instructions Zayra Lugo MD [Medical Doctor] - follow up in 10 days
[2018-06-15] MEDS: oxyCODONE IR 5 MG TAB PO PRN ×4 (01:37→20:48)
[2018-06-15 03:52] LABS: PLATELET COUNT 478 10^3/uL (150-400)
[2018-06-15] MEDS: ACETAMINOPHEN 500 MG TAB PO SCH ×3 (05:38→20:50)
[2018-06-15] MEDS: ceFAZolin 2 GM/DEXTROSE 100 ML IV SCH ×3 (05:51→20:53)
--- NOTE | 2018-06-15 08:03 | SOAPPROG ---
SOAP Progress Note Assessment/Plan: Assessment: 62 yo M sp L4-S1 TLIF and L3 kyphoplasty, POD #4 from redo incision and drainage of L4-S1 wound infection Plan: neuro: stable, patient feels that he is getting better. MSSA on cultures, on ancef, PICC in place, per ID scd/rogelio/lovenox for dvt prophylaxis PARISH x 1, will keep until output is minimal Appreciate Hospitalists help with medical issues likely to need rehab placement, ok to discharge from Neurosurgical standpoint lso brace when out of bed PT/OT please call with neuro changes 06/07/18 07:32 06/08/18 08:00 06/08/18 08:04 06/09/18 07:21 06/13/18 07:22 06/14/18 08:35 06/15/18 08:01 Subjective: continued back pain, hip pain starting to improve, no weakness. Objective: Vital Signs Temp Pulse Resp BP Pulse Ox 36.8 C 89 16 109/82 H 95 06/14/18 23:46 06/14/18 23:46 06/14/18 23:46 06/14/18 23:46 06/14/18 23:46 Microbiology 06/07/18 17:46 Gram Stain - Final Back - Eswab 06/07/18 11:57 Gram Stain - Final Back - Aspirate 06/09/18 10:40 Blood Culture - Final Blood 06/09/18 06:50 Blood Culture - Final Blood Laboratory Results 06/15/18 03:30 06/15/18 03:30 06/14/18 06/15/18 06/16/18 05:59 05:59 05:59 Intake Total 2520 1260 Output Total 1725 2650 Balance -1235 -1390 AAOx4, +FC PERRL, EOMI, no facial droop 5/5 + light touch C/D/I ICD10 Worksheet Patient Problems: Problems Problem Status Onset L3 vertebral fracture Acute Right-sided low back pain with sciatica Acute Fracture of femoral neck, right, closed Acute Fusion of spine of lumbar region Acute
[2018-06-15] MEDS: SENNOSIDES/DOCUSATE SODIUM TAB PO SCH ×2 (09:02→21:32)
[2018-06-15] MEDS: METHOCARBAMOL 750 MG TAB PO SCH ×3 (09:02→20:50)
[2018-06-15] MEDS: FAMOTIDINE 20 MG TAB PO SCH (09:02)
[2018-06-15] MEDS: POLYETHYLENE GLYCOL 3350 17 GM PKT PO SCH (09:02)
[2018-06-15] MEDS: GABAPENTIN 400 MG CAP PO SCH ×3 (09:02→20:51)
[2018-06-15] MEDS: oxyCODONE CR 15 MG TAB PO SCH ×2 (09:02→20:52)
[2018-06-15] MEDS: ENOXAPARIN 40 MG/0.4 ML SYR SC SCH (09:04)
--- NOTE | 2018-06-15 13:22 | HOSPPROG ---
Hospitalist Progress Note Assessment/Plan: 62 yo M presenting with severe back pain with s/p lumbosacral surgery, kyphoplasty and now post op wound infection # MSSA wound infection/bacteremia: -with retained hardware and therefore being treated as vertebral osteomyelitis -s/p repeat washout and patient notes that he is doing better overall -appreciate ID, continue ancef -cultures from 06/09 still with ngtd, last positive from 06/07 #L4-S1 TLIF and L3 kyphoplasty # leukocytosis: 2/2 infection, following *acute on chronic low back pain: better per patient report adjusted pain meds cont oxy CR *chronic pain on continuous chronic opiates: making pain control more challenging as above *anemia: stable *hyponatremia: improved *hypocalcemia: resolved * dispo: IP status, will need to go to snf versus IP rehab appealing insurance denial for inpt rehab D/W CM plan for peer to peer with insurance at noon. lengthy conversation with and pt about plan Subjective: Still having pain. Feels a bit stronger. Anxious about DC plan. Objective: Vital Signs Temp Pulse Resp BP Pulse Ox 36.8 C 72 18 140/97 H 96 06/15/18 08:00 06/15/18 08:00 06/15/18 08:00 06/15/18 08:00 06/15/18 08:00 Microbiology 06/07/18 17:46 Gram Stain - Final Back - Eswab 06/07/18 11:57 Gram Stain - Final Back - Aspirate 06/09/18 10:40 Blood Culture - Final Blood 06/09/18 06:50 Blood Culture - Final Blood Laboratory Results 06/15/18 03:30 06/15/18 03:30 06/14/18 06/15/18 06/16/18 05:59 05:59 05:59 Intake Total 2520 1260 Output Total 0274 6270 775 Balance -1235 -1390 -775 - Physical Exam Constitutional: chronically ill appearing, uncomfortable, cachectic Eyes: PERRL, anicteric sclera, EOMI Ears, Nose, Mouth, Throat: moist mucous membranes, hearing normal, ears appear normal Cardiovascular: regular rate and rhythym, No JVD, No edema Respiratory: no respiratory distress, no rales or rhonchi, reduced air movement Gastrointestinal: normoactive bowel sounds, No tenderness, No ascites Skin: warm, normal color, No mottled Musculoskeletal: joint tenderness, pain with ROM, generalized weakness Neurologic: AAOx3 Psychiatric: interacting appropriately, not anxious, not encephalopathic, thought process linear ICD10 Worksheet Patient Problems: Problems Problem Status Onset Fracture of femoral neck, right, closed Acute Fusion of spine of lumbar region Acute Right-sided low back pain with sciatica Acute L3 vertebral fracture Acute
--- NOTE | 2018-06-15 14:05 | PCMIDPN ---
Assessment/Plan: # MSSA post op infection s/p L4-S1 TLIF and L3 kyphoplasty and MSSA bacteremia, AF since 06/09. Back pain seems to have stabilized. CRP trending down. TTE negative. Slight elevation in WBC persists but clinically improvement. --PICC placed 06/10 --continue high dose ancef, 08/05/18 stop date (8 weeks). --agree w holding off on 3rd washout today as seems to be getting a bit better Meds Ancef 2gm IV q8h #6 microbiology 06/07 wound swab: GS MSSA 06/07 wound aspiration: GS:MSSA 06/07 OR swab: GS MSSA 06/07 blood cx 1 MSSA 06/09 blood cx (2) Neg Subjective: just finished working w PT and back a bit more sore than earlier today incision with some serous drainage saturating dressing Still trying to get into acute rehab Objective: Vital Signs Temp Pulse Resp BP Pulse Ox 36.8 C 72 18 140/97 H 96 06/15/18 08:00 06/15/18 08:00 06/15/18 08:00 06/15/18 08:00 06/15/18 08:00 Microbiology 06/07/18 17:46 Gram Stain - Final Back - Eswab 06/07/18 11:57 Gram Stain - Final Back - Aspirate 06/09/18 10:40 Blood Culture - Final Blood 06/09/18 06:50 Blood Culture - Final Blood Laboratory Results 06/15/18 03:30 06/15/18 03:30 06/14/18 06/15/18 06/16/18 05:59 05:59 05:59 Intake Total 2520 1260 Output Total 3755 2650 775 Balance -1235 -1390 -775 ESR 89 MM/HR (0-20) H 06/12/18 05:00 C-Reactive Protein 63.5 mg/L (<10.0) H 06/12/18 05:00 - Physical Exam General Appearance: alert, no apparent distress EENT: No scleral icterus Respiratory: No accessory muscle use Skin: No rash Neuro/Psych: alert, normal mood/affect, oriented x 3 - Line/s RUE PICC Lines: No drainage, No erythema - Time Spent With Patient Time Spent with Patient: greater than 25 minutes Time Spent with Patient: Greater than 25 minutes spent on this patients care, greater than 50% of time spent counseling, educating, and coordinating care regarding the above mentioned plan. ICD10 Worksheet Patient Problems: Problems Problem Status Onset L3 vertebral fracture Acute Right-sided low back pain with sciatica Acute Fracture of femoral neck, right, closed Acute Fusion of spine of lumbar region Acute
[2018-06-16] MEDS: oxyCODONE IR 5 MG TAB PO PRN ×4 (04:33→21:48)
[2018-06-16] MEDS: ceFAZolin 2 GM/DEXTROSE 100 ML IV SCH ×3 (04:33→21:46)
[2018-06-16] MEDS: ACETAMINOPHEN 500 MG TAB PO SCH ×3 (05:35→21:47)
--- NOTE | 2018-06-16 08:37 | NEUSURGPN ---
Assessment/Plan: Assessment/Plan: Assessment: 62 yo M sp L4-S1 TLIF and L3 kyphoplasty, POD #5 from redo incision and drainage of L4-S1 wound infection Plan: neuro: stable, patient feels that his hip pain is still there but is getting a little better. MSSA on cultures, on ancef, PICC in place, per ID- will be on abx on Dec. scd/rogelio/lovenox for dvt prophylaxis PARISH x 1, will keep until output is minimal Appreciate Hospitalists help with medical issues likely to need rehab placement, Peer- to peer to take place today to try and get him to [place] ok to discharge from Neurosurgical standpoint lso brace when out of bed PT/OT please call with neuro changes Objective: NAD, VSS Alert, Awake, Following commands BLE 5/5= Sensation intact to lt touch incision- silver dressing in place, dry - Physician Discussed Patient with : Adry Neurosurgery Physical Exam - Vitals, I&O, Labs I and O 06/15/18 06/16/18 06/17/18 05:59 05:59 05:59 Intake Total 1260 2800 Output Total 2650 2500 Balance -1390 300 Intake: Oral (ml) 1150 2700 IV Infused (ml) 110 100 ceFAZolin 2 GM/DEXTROSE 110 100 100 ml @ 200 mls/hr IV Q8HRS [facility] Rx#:[id number] Output: Urine (ml) 2575 2500 Toilet 800 400 Urinal 1775 2100 PARISH Drain Output (ml) 75 Right Posterior Back 75 Other: Intake Quantity Yes Sufficient Number of Voids Toilet 1 Urinal 1 2 Number of Stools Toilet 3 1 Microbiology 06/07/18 17:46 Gram Stain - Final Back - Eswab 06/07/18 11:57 Gram Stain - Final Back - Aspirate Vital Signs Temp Pulse Resp BP Pulse Ox 36.8 C 83 16 123/82 H 95 06/15/18 23:28 06/15/18 23:28 06/15/18 23:28 06/15/18 23:28 06/15/18 23:28 Laboratory Results 06/15/18 03:30 06/15/18 03:30 ICD10 Worksheet Patient Problems: Problems Problem Status Onset L3 vertebral fracture Acute Right-sided low back pain with sciatica Acute Fracture of femoral neck, right, closed Acute Fusion of spine of lumbar region Acute
[2018-06-16] MEDS: ENOXAPARIN 40 MG/0.4 ML SYR SC SCH (10:01)
[2018-06-16] MEDS: FAMOTIDINE 20 MG TAB PO SCH (10:01)
[2018-06-16] MEDS: oxyCODONE CR 15 MG TAB PO SCH ×2 (10:02→21:47)
[2018-06-16] MEDS: METHOCARBAMOL 750 MG TAB PO SCH ×3 (10:02→23:18)
[2018-06-16] MEDS: GABAPENTIN 400 MG CAP PO SCH ×3 (10:02→21:47)
[2018-06-16] MEDS: POLYETHYLENE GLYCOL 3350 17 GM PKT PO SCH (10:03)
[2018-06-16] MEDS: SENNOSIDES/DOCUSATE SODIUM TAB PO SCH ×2 (10:03→21:46)
--- NOTE | 2018-06-16 11:24 | HOSPPROG ---
Hospitalist Progress Note Assessment/Plan: 62 yo M presenting with severe back pain with s/p lumbosacral surgery, kyphoplasty and now post op wound infection # MSSA wound infection/bacteremia: -with retained hardware and therefore being treated as vertebral osteomyelitis -s/p repeat washout and patient notes that he is doing better overall - continue ancef -cultures from 06/09 still with ngtd, last positive from 06/07 -evaluated incision-well approximated, no drainage, slightly pink along edges, PARISH w serous drainage, looked around incision site and has some greyish drainage , nursing staff notes this is residual vancomycin powder -reviewed his care w Dr Lugo #generalized weakness -difficulty w rolling on his side for me to evaluate -needing a walker to ambulate and having difficulty w caring for himself #L4-S1 TLIF and L3 kyphoplasty # leukocytosis: overall resolving *acute on chronic low back pain: better per patient report but ongoing *chronic pain on continuous chronic opiates *anemia: stable *hyponatremia: improved *hypocalcemia: resolved *dispo: awaiting further input from [employer], they requested notes from PT and OT today. Updated Nettie, Carlos Enrique's , about continued waiting on his placement. Subjective: Carlos Enrique said he is still having back pain and gluteal pain but better. Objective: Vital Signs Temp Pulse Resp BP Pulse Ox 36 C 78 18 129/95 H 93 06/16/18 08:00 06/16/18 08:00 06/16/18 08:00 06/16/18 08:00 06/16/18 08:00 Microbiology 06/07/18 17:46 Gram Stain - Final Back - Eswab 06/07/18 11:57 Gram Stain - Final Back - Aspirate Laboratory Results 06/15/18 03:30 06/15/18 03:30 06/15/18 06/16/18 06/17/18 05:59 05:59 05:59 Intake Total 1260 2800 Output Total 2650 2500 600 Balance -1390 300 -600 - Physical Exam Constitutional: uncomfortable, No not in pain Eyes: PERRL Ears, Nose, Mouth, Throat: hearing normal Respiratory: no respiratory distress Gastrointestinal: normoactive bowel sounds Skin: warm, other (midline back incision well approximated, no drainage, no tenderness w palp, PARISH w serous drainage, palp site around the drain, has some tenderness, not warm) Musculoskeletal: generalized weakness Neurologic: AAOx3 Psychiatric: interacting appropriately ICD10 Worksheet Patient Problems: Problems Problem Status Onset L3 vertebral fracture Acute Right-sided low back pain with sciatica Acute Fracture of femoral neck, right, closed Acute Fusion of spine of lumbar region Acute
--- NOTE | 2018-06-16 13:48 | PCMIDPN ---
Assessment/Plan: # MSSA post op infection s/p L4-S1 TLIF and L3 kyphoplasty and MSSA bacteremia, AF since 06/09. Back pain seems to have stabilized. CRP trending down. TTE negative. --PICC placed 06/10 --continue high dose ancef, 08/05/18 stop date (8 weeks). --agree w holding off on 3rd washout today as seems to be getting a bit better --check CBC and CRP in AM Meds Ancef 2gm IV q8h #8 microbiology 06/07 wound swab: GS MSSA 06/07 wound aspiration: GS:MSSA 06/07 OR swab: GS MSSA 06/07 blood cx 08/17 MSSA 06/09 blood cx (2) Neg Subjective: back pain stable showered today no new c/o Objective: Vital Signs Temp Pulse Resp BP Pulse Ox 36 C 78 18 129/95 H 93 06/16/18 08:00 06/16/18 08:00 06/16/18 08:00 06/16/18 08:00 06/16/18 08:00 Microbiology 06/07/18 17:46 Gram Stain - Final Back - Eswab 06/07/18 11:57 Gram Stain - Final Back - Aspirate Laboratory Results 06/15/18 03:30 06/15/18 03:30 06/15/18 06/16/18 06/17/18 05:59 05:59 05:59 Intake Total 1260 2800 1000 Output Total 2650 2500 1350 Balance -1390 300 -350 ESR 89 MM/HR (0-20) H 06/12/18 05:00 C-Reactive Protein 63.5 mg/L (<10.0) H 06/12/18 05:00 - Physical Exam General Appearance: alert, no apparent distress EENT: other (good dentition), No thrush Respiratory: lungs clear, No accessory muscle use Cardiac/Chest: regular rate, rhythm Extremities: No pedal edema Skin: other (incision w lorene in place, appropriately approximated, no purulence, PARISH drain w serosang fluid), No diaphoresis, No rash Neuro/Psych: alert, normal mood/affect, oriented x 3 - Line/s RUE PICC Lines: No drainage, No erythema - Time Spent With Patient Time Spent with Patient: greater than 35 minutes (Care coordinated w Mouna Whitea) Time Spent with Patient: Greater than 35 minutes spent on this patients care, greater than 50% of time spent counseling, educating, and coordinating care regarding the above mentioned plan. ICD10 Worksheet Patient Problems: Problems Problem Status Onset L3 vertebral fracture Acute Right-sided low back pain with sciatica Acute Fracture of femoral neck, right, closed Acute Fusion of spine of lumbar region Acute
--- NOTE | 2018-06-16 16:30 | ASMTCMCOM ---
CM Note CM Note Notes: Today Hospitalist Gerardo talked to Dr. Palencia for a peer to peer and pt was ultimately approved for 5 days of inpatient acute rehab. Pt to d/c tomorrow and what is best for [facility] inpatient rehab is before 11am (Hospitalist updated). Pt wants family to transport and he is aware of the morning need for d/c. CM to follow. Date Signed: 06/16/2018 04:29 PM Electronically Signed By:HITESH Blake
[2018-06-17] MEDS: ceFAZolin 2 GM/DEXTROSE 100 ML IV SCH (05:03)
[2018-06-17] MEDS: oxyCODONE IR 5 MG TAB PO PRN ×2 (05:03→10:38)
[2018-06-17] MEDS: ACETAMINOPHEN 500 MG TAB PO SCH (06:33)
--- NOTE | 2018-06-17 08:14 | HOSPPROG ---
Hospitalist Progress Note Assessment/Plan: 62 yo M presenting with severe back pain with s/p lumbosacral surgery, kyphoplasty and now post op wound infection # MSSA wound infection/bacteremia: -with retained hardware and therefore being treated as vertebral osteomyelitis -s/p repeat washout - continue ancef #generalized weakness -difficulty w rolling on his side for me to evaluate -needing a walker to ambulate and having difficulty w caring for himself #L4-S1 TLIF and L3 kyphoplasty # leukocytosis: overall resolving *acute on chronic low back pain: better per patient report but ongoing *chronic pain on continuous chronic opiates *anemia: stable *hyponatremia: improved *hypocalcemia: resolved *dispo: ok to dc to Rehab today per neurosurgery. Will need his incision monitored closely, cont IV abx per ID. Subjective: Carlos Enrique is concerned about transport and needing to get to rehab today. Objective: Vital Signs Temp Pulse Resp BP Pulse Ox 36.8 C 72 16 114/80 93 06/16/18 23:03 06/16/18 23:03 06/16/18 23:03 06/16/18 23:03 06/16/18 23:03 Microbiology 06/07/18 17:46 Gram Stain - Final Back - Eswab 06/07/18 11:57 Gram Stain - Final Back - Aspirate Laboratory Results 06/17/18 05:10 06/15/18 03:30 06/16/18 06/17/18 06/18/18 05:59 05:59 05:59 Intake Total 2800 3075 Output Total 2500 3250 340 Balance 300 -175 -340 - Physical Exam Constitutional: no apparent distress Ears, Nose, Mouth, Throat: hearing normal Respiratory: no respiratory distress Skin: warm Musculoskeletal: generalized weakness Neurologic: AAOx3 Psychiatric: interacting appropriately ICD10 Worksheet Patient Problems: Problems Problem Status Onset L3 vertebral fracture Acute Right-sided low back pain with sciatica Acute Fracture of femoral neck, right, closed Acute Fusion of spine of lumbar region Acute
[2018-06-17 08:39] VITALS: BP 147/98
--- NOTE | 2018-06-17 08:45 | NEUSURGPN ---
Assessment/Plan: Assessment: 62 yo M sp L4-S1 TLIF and L3 kyphoplasty, POD #6 from redo incision and drainage of L4-S1 wound infection Plan: neuro: stable, patient feels that his hip pain is still there but is getting a little better. MSSA on cultures, on ancef, PICC in place, per ID- will be on abx on Dec. scd/rogelio/lovenox for dvt prophylaxis PARISH x 1, will keep until output is minimal - 40cc out last 24 hours, Dr Castillo would like left in place. Appreciate Hospitalists help with medical issues likely to need rehab placement, Peer- to peer done and approved for pt ot DC to [place] today ok to discharge from Neurosurgical standpoint lso brace when out of bed PT/OT please call with neuro changes Subjective: Pt resting in bed, sleepy. Has achy back pain. Objective: Sleepy but awakens easily NAD VSS MAEx4 Motor 5/5 BLE Incision dressed Urinary Catheter in Place: No - Physician Discussed Patient with Dr.: Adry Neurosurgery Physical Exam - Vitals, I&O, Labs I and O 06/16/18 06/17/18 06/18/18 05:59 05:59 05:59 Intake Total 2800 3075 Output Total 2500 3250 865 Balance 300 -175 -865 Intake: Oral (ml) 2700 2875 IV Infused (ml) 100 200 ceFAZolin 2 GM/DEXTROSE 100 200 100 ml @ 200 mls/hr IV Q8HRS [facility] Rx#:[id number] Output: Urine (ml) 2500 3150 825 Toilet 400 1575 300 Urinal 2100 1575 525 PARISH Drain Output (ml) 100 40 Right Posterior Back 100 40 Other: Intake Quantity Yes Sufficient Number of Voids Toilet 1 Urinal 2 1 2 Number of Stools Toilet 1 Urinal 1 Microbiology 06/07/18 17:46 Gram Stain - Final Back - Eswab 06/07/18 11:57 Gram Stain - Final Back - Aspirate Vital Signs Temp Pulse Resp BP Pulse Ox 36.7 C 71 14 147/98 H 96 06/17/18 08:00 06/17/18 08:00 06/17/18 08:00 06/17/18 08:00 06/17/18 08:00 Laboratory Results 06/17/18 05:10 06/15/18 03:30 ICD10 Worksheet Patient Problems: Problems Problem Status Onset L3 vertebral fracture Acute Right-sided low back pain with sciatica Acute Fracture of femoral neck, right, closed Acute Fusion of spine of lumbar region Acute
[2018-06-17] MEDS: SENNOSIDES/DOCUSATE SODIUM TAB PO SCH (09:23)
[2018-06-17] MEDS: oxyCODONE CR 15 MG TAB PO SCH (09:23)
[2018-06-17] MEDS: ENOXAPARIN 40 MG/0.4 ML SYR SC SCH (09:23)
[2018-06-17] MEDS: GABAPENTIN 400 MG CAP PO SCH (09:23)
[2018-06-17] MEDS: POLYETHYLENE GLYCOL 3350 17 GM PKT PO SCH (09:24)
[2018-06-17] MEDS: FAMOTIDINE 20 MG TAB PO SCH (09:24)
[2018-06-17] MEDS: METHOCARBAMOL 750 MG TAB PO SCH (09:58)
--- NOTE | 2018-06-17 10:03 | PDIAF ---
- Diagnosis Diagnosis: MSSA bacteremia and post op infection Code Status: Full Code - Medication Management [employer]ician Antibiotics: cefazolin 6gm IV continuous infusion or Cefazolin 2gm IV q8h Half-Way Antibiotic Stop Date: 08/05/18 Discharge Medications: electronically signed and located in the Home Medication List. PICC Care - Routine: Yes - Orders Services needed: Home Care, Registered Nurse Home Care Face to Face: I certify that this patient was under my care and that I had the required xjfz-[id number] encounter meeting the encounter requirements on the discharge day. My findings support the fact that the patient is homebound as defined in Home Care Face to Face Continued: CMS Chapter 7 Medicare Benefits Manual 30.1.1 , The condition of the patient is such that there exists a normal inability to leave home and consequently, leaving home would require a considerable and taxing effort. Diet Recommendation: no restrictions on diet Diet Texture: Regular Texture Diet Additional Instructions: No bending/lifting/twisting NO NSAIDs Wear brace when OOB Follow up with Dr Castillo in 2 weeks Call office with any issues @ [phone] Keep PARISH drain - Labs/Radiology CBC w/diff Date: 06/13/18 (Weekly Wednesday) CMP Date: 06/13/18 (Weekly Wednesday) CRP Date: 06/13/18 (Weekly Wednesday) Call or Fax Lab and Imaging Results to: Zayra Lugo MD [facility] for Infectious Diseases at fax [phone] - Follow Up Care Current Providers and Referrals: Zayra Lugo MD [Medical Doctor] - follow up in 10 days Patient,NotPresent [Unknown] - As per Instructions José Luis Rider MD [Medical Doctor] -
--- NOTE | 2018-06-17 10:21 | PCMIDPN ---
Assessment/Plan: # MSSA post op infection s/p L4-S1 TLIF and L3 kyphoplasty and MSSA bacteremia, AF since 06/09. Back pain seems to have stabilized. CRP continues to trend down. --PICC placed 06/10 --continue high dose ancef 2 g IV Q 8, 08/05/18 stop date (8 weeks). --infectious disease service to follow patient when he goes to [place]. Meds Ancef 2gm IV q8h #9 microbiology 06/07 wound swab: GS MSSA 06/07 wound aspiration: GS:MSSA 06/07 OR swab: GS MSSA 06/07 blood cx 08/17 MSSA 06/09 blood cx (2) Neg Subjective: Gradual improvement in back pain Objective: Vital Signs Temp Pulse Resp BP Pulse Ox 36.7 C 71 14 147/98 H 96 06/17/18 08:00 06/17/18 08:00 06/17/18 08:00 06/17/18 08:00 06/17/18 08:00 Microbiology 06/07/18 17:46 Gram Stain - Final Back - Eswab 06/07/18 11:57 Gram Stain - Final Back - Aspirate Laboratory Results 06/17/18 05:10 06/15/18 03:30 06/16/18 06/17/18 06/18/18 05:59 05:59 05:59 Intake Total 2800 3075 Output Total 2500 3250 865 Balance 300 -175 -865 ESR 89 MM/HR (0-20) H 06/12/18 05:00 C-Reactive Protein 42.4 mg/L (<10.0) H 06/17/18 05:10 - Physical Exam General Appearance: alert, no apparent distress Respiratory: lungs clear, No accessory muscle use Neck: supple Cardiac/Chest: regular rate, rhythm, other (Very faint systolic murmur) Extremities: No pedal edema Skin: No rash Neuro/Psych: alert, normal mood/affect, oriented x 3 - Line/s RUE PICC Lines: No drainage, No erythema - Time Spent With Patient Time Spent with Patient: greater than 25 minutes Time Spent with Patient: Greater than 25 minutes spent on this patients care, greater than 50% of time spent counseling, educating, and coordinating care regarding the above mentioned plan. ICD10 Worksheet Patient Problems: Problems Problem Status Onset L3 vertebral fracture Acute Right-sided low back pain with sciatica Acute Fracture of femoral neck, right, closed Acute Fusion of spine of lumbar region Acute
--- NOTE | 2018-06-17 11:25 | ASMTCMCOM ---
CM Note CM Note Notes: Pt medically stable for d/c to [facility] inpatient rehab. Orders to be obtained via [employer]. Pt son to transport. KRISTA Alamo to call report. Date Signed: 06/17/2018 11:24 AM Electronically Signed By:HITESH Blake
--- NOTE | 2018-06-17 11:25 | ASMTLACE ---
LACE Length of stay for Answers: 14 days or more current admission Acuity / Level of Answers: Yes Care: Did the patient have an inpatient admission? Comorbidities - select Answers: Opioid dependence all that apply / Chronic pain # of Emergency department Answers: 1-2 visits in the last 6 months Score: 15 Date Signed: 06/17/2018 11:25 AM Electronically Signed By:HITESH Blake
--- NOTE | 2018-06-17 16:12 | ASDISCHSUM ---
Discharge Information Plan Status:Inpatient Rehab Medically Cleared to Leave: Discharge Date:06/17/2018 11:40 AM CM D/C Disposition: ADT D/C Disposition:[facility] IP Projected Discharge Date:06/17/2018 11:00 AM Transportation at D/C:Family Discharge Delay Reason: Follow-Up Date:06/17/2018 11:00 AM Discharge Slot: Final Diagnosis: Placement Information Referral Type:*Home Health Care Services Referral ID:[id number] Provider Name: Address 1: Phone Number: Address 2: Fax Number: City: Selection Factors: State: Referral Type:*Shelter/SNF Referral ID:[id number] Provider Name: Address 1: Phone Number: Address 2: Fax Number: City: Selection Factors: State: Referral Type:Rehabilitation Hospital Referral ID:[id number] Provider Name:[facility] Address 1:[address] Phone Number: Address 2: Fax Number: [facility]:[place] Selection Factors: State:[place] Patient Contact Information Contact Name:ALEXYS Relationship: Address:[address] Work Phone: City:[facility] Phone: [facility]/Zip Code:[place] [address] Email: Financial Information Financial Class:BCOP Primary Plan Desc:[facility] PATHWAY PLAN Primary Plan Number:[id number] Secondary Plan Desc: Secondary Plan Number: Assessment Information LACE LACE Length of stay for Answers: 14 days or more current admission Acuity / Level of Answers: Yes Care: Did the patient have an inpatient admission? Comorbidities - select Answers: Opioid dependence all that apply / Chronic pain # of Emergency department Answers: 1-2 visits in the last 6 months Score: 15 Date Signed: 06/17/2018 11:25 AM Electronically Signed By:HITESH Blake [facility] CM Progress Note CM Note CM Note Notes: Pt came to ED for back pain, had recent lumbar fusion. Pt had kypho today. Pt open with [facility] for PT. PT ordered. Anticipate pt will be able to d/c with resumption of [facility] PT, CM to follow. Date Signed: 06/03/2018 03:05 PM Electronically Signed By:HITESH Blake [facility] CM Progress Note CM Note CM Note Notes: PT/OT recommending Acute Rehab. Order is in for Acute Rehab. Possible discharge Wednesday after Ins has been checked. Date Signed: 06/05/2018 03:04 PM Electronically Signed By:Salina Solis LCSW [facility] CM Progress Note CM Note CM Note Notes: [facility] inpatient rehab (pt first choice for d/c) submitted for insurance authorization today. CM to follow. Date Signed: 06/06/2018 04:12 PM Electronically Signed By:HITESH Blake [facility] CM Progress Note CM Note CM Note Notes: Pt to OR today for washout of wound infection. Pt insurance denied approval for [facility] inpatient rehab, pt may need SNF and referrals sent in [employer] to [facility] and [facility] to see if they can take pt insurance. Date Signed: 06/07/2018 02:17 PM Electronically Signed By:HITESH Blake [facility] CM Progress Note CM Note CM Note Notes: Explained to pt insurance declined [facility] inpatient rehab, pt chooses [facility]. Lupe with [facility] admissions met with pt. [facility] has accepted pt and has insurance auth. CM to follow. Date Signed: 06/08/2018 03:44 PM Electronically Signed By:HITESH Blake [facility] CM Progress Note CM Note CM Note Notes: PT continues to rec inpatient rehab and if not approved then SNF. Pt on IV cefazolin. [facility] to rescind insurance auth (spoke with Lupe) as [facility] to attempt to get insurance auth for [facility] inpatient rehab again. Fatuma at [facility] inpatient rehab updated and they will have to see how pt does over the weekend and assess Wednesday. CM to follow. Date Signed: 06/10/2018 03:45 PM Electronically Signed By:HITESH Blake [facility] CM Progress Note CM Note CM Note Notes: Ortho/Neuro CM, Suly, spoke with Ann-Marie at [facility] Inpatient Rehab today. Eval has not been completed today as of yet. Ann-Marie states she will try and get to it today and will then follow-up with CM. Will continue to follow. Plan: [facility] Inpt. Rehab vs SNF ([facility]) Date Signed: 06/13/2018 02:05 PM Electronically Signed By:Crys Womack RN [facility] CM Progress Note CM Note CM Note Notes: Spoke with Ann-Marie Johns from Inpatient Rehab and she states they are having to file an appeal with insurance as [facility] denied patient services saying he did not need this level of care. She will send the new clinical information to see if they will approve services based on new information. CM to contact Alexsandra tomorrow to determine next steps. CM will follow. Date Signed: 06/13/2018 03:10 PM Electronically Signed By:Suly Miranda LCSW [facility] CM Progress Note CM Note CM Note Notes: Pt request for [facility] inpatient rehab still not approved by [employer] ([employer] denial letter is in chart). Today Hospitalist Tim attempted a peer to peer appeal and was informed the soonest the peer to peer can be scheduled with Dr. Palencia is 12:00 on 06/16/18. Peer to peer number is [phone], ref # [id number]. Pt updated, pt reports he is confident the appeal will be granted. Pt to stay until appeal. Alexsandra in admissions at [facility] inpatient rehab updated. [facility] updated, they will keep him on an admission list in case inpatient rehab is denied again. CM to follow. Date Signed: 06/14/2018 03:41 PM Electronically Signed By:HITESH Blake [facility] CM Progress Note CM Note CM Note Notes: Entered in error Date Signed: 06/15/2018 12:08 PM Electronically Signed By:HITESH Blake [facility] CM Progress Note CM Note CM Note Notes: Today Hospitalist Gerardo talked to Dr. Palencia for a peer to peer and pt was ultimately approved for 5 days of inpatient acute rehab. Pt to d/c tomorrow and what is best for [facility] inpatient rehab is before 11am (Hospitalist updated). Pt wants family to transport and he is aware of the morning need for d/c. CM to follow. Date Signed: 06/16/2018 04:29 PM Electronically Signed By:HITESH Blake [facility] CM Progress Note CM Note CM Note Notes: Pt medically stable for d/c to [facility] inpatient rehab. Orders to be obtained via [employer]. Pt son to transport. KRISTA Alamo to call report. Date Signed: 06/17/2018 11:24 AM Electronically Signed By:HITESH Blake Intervention Information
== END 2018-06-17 11:40 | DRG 516 ==
LOC: EDUNIT# → OBSVTOIN 18:59 → F3E 21:20 → F3N 06-03 10:30
PROVIDERS: ADMIT Internal Medicine; ATTEND Internal Medicine
DX: M48.56XA Collapsed vertebra, not elsewhere classified, lumbar region, initial encounter for fracture (principal); T81.49XA Infection following a procedure, other surgical site, initial encounter; E87.1 Hypo-osmolality and hyponatremia; M46.26 Osteomyelitis of vertebra, lumbar region; B95.61 Methicillin susceptible Staphylococcus aureus infection as the cause of diseases classified elsewhere; E86.1 Hypovolemia; E83.51 Hypocalcemia; Z98.1 Arthrodesis status; D64.9 Anemia, unspecified; I10 Essential (primary) hypertension; Z96.641 Presence of right artificial hip joint; Z85.820 Personal history of malignant melanoma of skin
CPT/HCPCS: 96374; 97116-GP; 97161-GP; 97165-GO; 97168-GO; 97530-GO; 97530-GP; 97535-GO; A9585; C1713; C1751; J0171; J0690; J0692; J0696; J1100; J1170; J1650; J2001; J2250; J2270; J2405; J2704; J2765; J3010; J3360; J3370; Q9967

== ENCOUNTER 2018-06-17 12:06 | Inpatient (IN) | payer OTHER ==
[2018-06-17] MEDS ORDERED: ALTEPLASE 2 MG VIAL IVP PRN (13:20)
[2018-06-17] MEDS ORDERED: DEXTROSE 2 GM IV SCH (14:00)
[2018-06-17] MEDS ORDERED: CEFAZOLIN IV SCH (14:00)
[2018-06-17] MEDS: ACETAMINOPHEN 500 MG TAB PO SCH ×2 (14:05→21:58)
--- NOTE | 2018-06-17 15:29 | GHP ---
POST ADMISSION PHYSICIAN EVALUATION AND REHABILITATION TREATMENT PLAN DATE OF ADMISSION: 06/17/2018 DATE OF EVALUATION: June 17, 2018 TIME OF EVALUATION: 1340 REFERRING FACILITY: [facility] IMPAIRMENT GROUP: 8.9. DATE OF ONSET: June 03, 2018. REFERRING PHYSICIAN: Dr. Mac REHABILITATION DIAGNOSIS: Debility status post lumbar fusion surgery and subsequent wound infection with debridement and washout. ETIOLOGIC DIAGNOSIS: Other Orthopedic. DATE OF SURGERY: June 03, 2018 CONSULTING PHYSICIANS: He was seen in consultation by the Infectious Disease service, Dr. Lugo, and by Neurosurgery, Dr. Cortez, Dr. Hale, and Dr. Rider. HISTORY OF PRESENT ILLNESS: This patient had an L4-S1 lumbar fusion in early May of this year. He presented to [facility] Emergency Department on 06/03/2018, with intractable low back pain. Imaging studies revealed a compression fracture at the L3 level for which he was treated with an L3 kyphoplasty. Subsequently, he developed a fever and was diagnosed with a postop infection of the lumbar spine. He had consultation with Infectious Disease. He had incision and drainage on 06/07/2018, with cultures taken which eventually grew methicillin-sensitive Staphylococcus aureus. PICC line was placed. He had an echocardiogram to rule out endocarditis , which showed mild left atrial enlargement and swbe-iz-sghsqgrh mitral regurgitation, but no vegetations. He had considerable improvement once the infection was under control. He has a lumbar drain in place as well. He still complains of pain in his buttocks and proximal hamstrings, but overall he is doing much better, participating in therapies and ready for rehabilitation. MOST RECENT LABORATORY STUDIES: CBC showed mild anemia with a hemoglobin of 10.9 and hematocrit of 33.7. This had been improving over the past several days. He had an elevated white blood cell count that resolved. He had a mildly elevated platelet count, and on the day of hospital discharge is 468. Serum chemistries revealed normal renal function, electrolytes, and liver functions on 06/15/2018. C-reactive protein was as high as 210 on 06/07/2018. On the day of hospital discharge, it is 42.4. Albumin is mildly low at 2.8, but is improving. Urinalysis showed 2+ urobilinogen on 06/03/2018, but otherwise was normal. IMAGING: Showed compression fracture and hardware in place. MRI on 06/07/2018 showed a fluid collection from L3-S1 that caused gsaipdjl-gw-fjdefo spinal canal narrowing. The conus medullaris ends at T12-L1. There was edema associated with the L3 vertebral body associated with compression fracture. PRECAUTIONS: He is a fall risk. He has orthopedic lumbar spinal precautions with no bending, lifting or twisting. ACTIVE COMORBIDITIES: He has no active tier 1, tier 2 or tier 3 comorbidities. PAST MEDICAL HISTORY: 1. Deviated septum. 2. Right hip fracture. 3. Chronic low back pain. PAST SURGICAL HISTORY: He has had 2 surgeries to correct the deviated septum, which he reports were unsuccessful. He has had surgery for hip fracture on the right. He had a right total hip arthroplasty. He has had a hemorrhoidectomy. PRE-HOSPITAL MEDICATIONS: 1. Oxycodone 5 to 10 mg p.o. q.6 hours p.r.n. 2. Methocarbamol 750 mg p.o. q.i.d. p.r.n. 3. Diazepam 5 mg p.o. q.8 hours p.r.n. ADMISSION MEDICATIONS: 1. Acetaminophen 1000 mg p.o. Q.8 hours 2. Alteplase 2 mg IV P p.r.n. PICC line occlusion 3. Cephazolin 100 mL q.8 hours 4. Enoxaparin 40 mg subcutaneous q.day 5. Gabapentin 400 mg p.o. Three times daily 6. Methocarbamol 750 mg p.o. Three times daily 7. Oxycodone CR 15 mg p.o. Twice daily 8. Oxycodone IR 5-10 mg p.o. Q.3 hours p.r.n. 9. Polyethylene glycol 17 g p.o. Q.day 10. Senna/docusate 1-2 tablets p.o. Twice daily ALLERGIES: There are no known drug allergies. PSYCHOSOCIAL HISTORY: He is . He lives with his . 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 He is a nonsmoker, nondrinker. FAMILY HISTORY: Noncontributory. REVIEW OF SYSTEMS: He reports his sleep has been interrupted by hospital procedures such as lab draws, IVs and vitals. Otherwise, he feels he sleeps well. Pain does not interfere with sleep. He denies focal weakness or loss of sensation. Pain is primarily incident and is worse after therapies. He denies fevers or chills, cough or dyspnea, chest pain or palpitations, nausea, vomiting , constipation, or diarrhea. He reports urinary frequency, but there is no dysuria and no incontinence. Otherwise, a 10-point review of systems is negative. PHYSICAL EXAM: VITAL SIGNS: Blood pressure is 94/78, heart rate is 86, respiratory rate is 12. Oxygen saturation is 96% on room air. Temperature is 37.3 degrees centigrade. His weight is 78.4 kg for a body mass index of 23.4. GENERAL: This is a well-nourished, well-developed man, appears his chronologic age, cooperative and in no acute distress. HEENT: Extraocular movements are intact. Pupils are equal, round, reactive to light. Mucous membranes are moist. Dentition is in good condition. He has an uncrowded airway, Mallampati class 1. NECK: Supple. HEART: Regular rate and rhythm with no murmurs, rubs or gallops. LUNGS: Clear to auscultation bilaterally. ABDOMEN: Soft, nontender, nondistended with normoactive bowel sounds and no hepatosplenomegaly. EXTREMITIES: No cyanosis, clubbing or edema. Radial and dorsalis pedis pulses are 2+ bilaterally. NEUROLOGIC: He is alert and oriented x3. Cranial nerves 2-12 are grossly intact. There is no focal weakness. Sensation is intact to light touch. SKIN: Warm and dry. His lumbar bandage is without evidence of drainage and is to be changed q.3 days; was last changed yesterday. CURRENT LEVEL OF FUNCTION PER THE PREADMISSION SCREEN: Regarding diet, feeding , and swallowing, he was on a regular diet. Grooming was done standing with standby assist. Dressing upper body required standby assist and voice cues and lower body required minimal assist and voice cues. He was continent of bowel and bladder. Bed mobility required contact-guard to standby assist with voice cues for proper technique. He had slow sequencing. Transfers required contact- guard assist. He used a front-wheeled walker or a cane. Balance required minimal assist. His endurance was fair. He ambulated 200 feet with minimal assist using a straight cane. He had a step-to gait pattern, which progressed to a step-through pattern. He subsequently ambulated 300 feet with a front- wheeled walker and contact-guard assist, slow pace and reciprocal pattern. Communication and cognition were normal, and it was noted that pain can be a limiting factor during functional activities. IMPRESSION: This is a 62-year-old man who had L4-S1 lumbar fusion surgery for chronic low back pain. He went home after the surgery, but subsequently developed considerable worsening of his pain and came back to the hospital. Imaging there demonstrated a fluid collection consistent with wound infection as well as an L3 compression fracture. He had a kyphoplasty with improvement in his pain. He subsequently required incision and drainage for wound infection. Surgical cultures revealed methicillin-sensitive Staphylococcus aureus for which he is on IV antibiotics for 8 weeks. He is being treated as if he had a hardware infection and spinal osteomyelitis justifying the 8-week course of cefazolin. He otherwise is medically stable and ready for inpatient rehabilitation. His goal is to complete a rehabilitation stay and then return home with his family and supportive services. For a safe discharge, he will need to achieve modified independence for activities of daily living and functional activities with the least restrictive device. He will need to independently follow spinal precautions. Pain will need to be managed and the wound will need to be healing well without signs of active infection. He will have therapy with Physical Therapy and Occupational Therapy for 90 minutes per day for each discipline on 5-7 days of the week. His expected duration of stay is 5-7 days. It is anticipated that upon discharge he may continue to benefit from home health services. PLAN: 1. Debility following spinal surgery with complication of wound infection and L3 compression fracture, status post kyphoplasty and I and D of wound. PT and OT to optimize mobility and activities of daily living toward the independent to modified independent level. 2. Wound infection. Continue antibiotics managed per Infectious Disease. Will check CBC, CMP, and CRP weekly on Mondays, and he will be followed by Dr. Lugo, the infectious disease principal consultant, during his rehabilitation stay. 3. Pain control. Per his outpatient pharmacy, oxycodone continuous-release will not be covered by his insurance plan, so we will change from oxycodone 15 mg continuous-release 15 mg b.i.d. to morphine continuous-release 15 mg t.i.d. Continue oxycodone immediate-release 5-10 mg every 3 hours as needed for breakthrough pain. Continue scheduled acetaminophen and continue scheduled methocarbamol. Gabapentin will be continued for nerve pain. He will have serial assessments of pain and adjustment of medications. 4. Opiate-induced constipation has been well managed with senna/docusate combination and with polyethylene glycol. These will be continued. 5. Prophylaxis. He has moderate risk for DVT based on surgery and immobility. Continue enoxaparin until his mobility improves considerably. FOLLOWUP: He will be followed by infectious disease physician, Dr. Lugo, while he is in rehabilitation and will follow up with her as well after discharge, and he will follow up with neurosurgeon, Dr. José Luis Rider, after discharge. /[id number]/MODL MTDD
[2018-06-17] MEDS: METHOCARBAMOL 750 MG TAB PO SCH ×2 (15:31→20:57)
[2018-06-17] MEDS: GABAPENTIN 400 MG CAP PO SCH ×2 (15:31→20:57)
[2018-06-17] MEDS: ceFAZolin 2 GM/DEXTROSE 100 ML IV SCH ×2 (15:31→20:58)
[2018-06-17] MEDS: oxyCODONE IR 5 MG TAB PO PRN ×3 (15:47→23:46)
[2018-06-17] MEDS: SENNOSIDES/DOCUSATE SODIUM TAB PO SCH (20:56)
[2018-06-17] MEDS: morphINE SR 15 MG TAB PO SCH (20:57)
[2018-06-17] MEDS ORDERED: oxyCODONE CR 15 MG TAB PO SCH (21:00)
[2018-06-18] MEDS: ceFAZolin 2 GM/DEXTROSE 100 ML IV SCH ×3 (05:31→21:34)
[2018-06-18] MEDS: morphINE SR 15 MG TAB PO SCH ×3 (06:06→21:35)
[2018-06-18] MEDS: ACETAMINOPHEN 500 MG TAB PO SCH ×3 (06:08→23:39)
[2018-06-18] MEDS: ENOXAPARIN 40 MG/0.4 ML SYR SC SCH (08:31)
[2018-06-18] MEDS: METHOCARBAMOL 750 MG TAB PO SCH ×3 (08:31→21:35)
[2018-06-18] MEDS: GABAPENTIN 400 MG CAP PO SCH ×3 (08:31→21:35)
[2018-06-18] MEDS: oxyCODONE IR 5 MG TAB PO PRN ×4 (08:33→23:39)
[2018-06-18] MEDS: POLYETHYLENE GLYCOL 3350 17 GM PKT PO SCH (08:34)
[2018-06-18] MEDS: SENNOSIDES/DOCUSATE SODIUM TAB PO SCH ×2 (08:39→21:35)
--- NOTE | 2018-06-18 15:04 | SOAPPROG ---
SOAP Progress Note Assessment/Plan: Assessment: 62 YO man with recent lumbar surgeries; L4-5 fusion, L3 Kyphoplasty complicated by MSSA infection treated with ABS's and several high pressure wash out procedures. Stabilizing, transfered to rehab 06/17/18. # Debility: S/P bed rest for 3 weeks. Initiate PT, OT RN eval and treat. # Wound infection: Cont ABX's, manage PICC line. To Follow with ID, Dr Lugo # Pain Management: Primary goal is to increase mobility as he is assessed Independent. Adjust pain meds to maximize comfort yet address fears of termination clerk risk that patient is currently expressing. Cont to rely on breakthrough Oxycodone IR, to cover for MS contin TID which is less effective and less long acting compared to Oxycontin per pt report. # Narcotic associated Constipation: managed, cont bowel program. # Prophylaxis: Cont enoxaparin for mod DVT risk, until better mobilized. Cont SCD's. Follow-up: To be determined. Plan: Initial staffing pending. Cont Dr Stewart rehab treatment plan. 06/18/18 14:56 Subjective: Denies F/C/CP/SOB/N/V/D/C Reassured his pain will highly likely improve with improved freeedom of mobility. Objective: Vital Signs Temp Pulse Resp BP Pulse Ox 36.6 C 108 H 16 103/83 H 93 06/18/18 08:00 06/18/18 08:00 06/18/18 08:00 06/18/18 08:00 06/18/18 08:00 06/17/18 06/18/18 06/19/18 05:59 05:59 04:59 Intake Total 1930 480 Output Total 1975 20 Balance -45 460 Physical Exam - Physical Exam General Appearance: alert, no apparent distress Neck: supple Respiratory: lungs clear Cardiac/Chest: regular rate, rhythm Abdomen: normal bowel sounds, soft Back: Normal inspection, Other (C/O diffuse stabbing pain, Drain with slightly cloudy serosanguanous fluid) Skin: normal color, warm/dry Extremities: No non-tender, No pedal edema, No calf tenderness, No swelling Neuro/Psych: alert, normal mood/affect, oriented x 3 ICD10 Worksheet Patient Problems: Problems Problem Status Onset Fracture of femoral neck, right, closed Acute Fusion of spine of lumbar region Acute L3 vertebral fracture Acute Right-sided low back pain with sciatica Acute
[2018-06-19] MEDS: ceFAZolin 2 GM/DEXTROSE 100 ML IV SCH ×3 (05:49→21:02)
[2018-06-19] MEDS: ACETAMINOPHEN 500 MG TAB PO SCH ×3 (05:49→21:03)
[2018-06-19] MEDS: morphINE SR 15 MG TAB PO SCH ×3 (05:49→21:02)
[2018-06-19] MEDS: GABAPENTIN 400 MG CAP PO SCH ×3 (08:20→21:02)
[2018-06-19] MEDS: METHOCARBAMOL 750 MG TAB PO SCH ×3 (08:21→21:02)
[2018-06-19] MEDS: oxyCODONE IR 5 MG TAB PO PRN ×4 (08:21→23:40)
[2018-06-19] MEDS: ENOXAPARIN 40 MG/0.4 ML SYR SC SCH (08:21)
[2018-06-19] MEDS: POLYETHYLENE GLYCOL 3350 17 GM PKT PO SCH (08:21)
[2018-06-19] MEDS: SENNOSIDES/DOCUSATE SODIUM TAB PO SCH ×2 (08:23→21:02)
--- NOTE | 2018-06-19 14:40 | SOAPPROG ---
SOAP Progress Note Assessment/Plan: Assessment: 62 YO man with recent lumbar surgeries; L4-5 fusion, L3 Kyphoplasty complicated by MSSA infection treated with ABX's and several high pressure wash out procedures. Stabilizing, transferred to rehab 06/17/18. # Debility: S/P bed rest for 3 weeks. Initiated PT, OT RN eval and treat. Making good progress. # Wound infection: Wound healing, drainage diminishing. Cont ABX's, manage PICC line. To Follow with ID, Dr Lugo. Reviewed his Lab result history and what clinical and labratory follow up are necessary, which helped calm his anxiety regarding risk for ongoing infection. # Pain Management: Better on current meds. Primary goal is to increase mobility as he is assessed for [place]. Adjust pain meds to maximize comfort yet initiate plans for narcotic wean.. Cont to rely on breakthrough Oxycodone IR, MS contin TID. # Narcotic associated Constipation: managed, cont bowel program. # Prophylaxis: Cont enoxaparin for mod DVT risk, until better mobilized. Cont SCD's. Follow-up: To be determined. Plan: Initial staffing pending. Cont Dr Stewart rehab treatment plan. 06/19/18 14:36 Objective: Vital Signs Temp Pulse Resp BP Pulse Ox 36.6 C 64 16 127/82 H 96 06/19/18 08:00 06/19/18 08:00 06/19/18 08:00 06/19/18 08:00 06/19/18 08:00 06/18/18 06/19/18 06/20/18 06:59 05:59 05:59 Intake Total 720 Output Total 500 Balance 220 Physical Exam - Physical Exam General Appearance: alert, no apparent distress Neck: supple Respiratory: lungs clear Male Genitalia: erythema, inguinal tenderness, other (yeast-like infection in the groin folds) Back: Other (incision has been kept dressed, CD&I with small central area without localized cellulitis or drainage, yet healing slowwer than above and below. Kylee remain. The drain sight is mildly boggy, mildly erythematous.) Skin: normal color, warm/dry, rash (inguinal) Extremities: No pedal edema, No calf tenderness Neuro/Psych: alert, normal mood/affect, oriented x 3 ICD10 Worksheet Patient Problems: Problems Problem Status Onset Fracture of femoral neck, right, closed Acute Fusion of spine of lumbar region Acute L3 vertebral fracture Acute Right-sided low back pain with sciatica Acute
[2018-06-20] MEDS: ACETAMINOPHEN 500 MG TAB PO SCH ×3 (05:34→21:14)
[2018-06-20] MEDS: ceFAZolin 2 GM/DEXTROSE 100 ML IV SCH ×3 (05:34→21:14)
[2018-06-20] MEDS: morphINE SR 15 MG TAB PO SCH ×3 (05:35→21:14)
[2018-06-20] MEDS: oxyCODONE IR 5 MG TAB PO PRN ×3 (08:32→19:38)
[2018-06-20] MEDS: GABAPENTIN 400 MG CAP PO SCH (08:32)
[2018-06-20] MEDS: ENOXAPARIN 40 MG/0.4 ML SYR SC SCH (08:32)
[2018-06-20] MEDS: SENNOSIDES/DOCUSATE SODIUM TAB PO SCH ×2 (08:32→21:13)
[2018-06-20] MEDS: METHOCARBAMOL 750 MG TAB PO SCH ×3 (08:32→21:14)
[2018-06-20] MEDS: POLYETHYLENE GLYCOL 3350 17 GM PKT PO SCH (08:33)
[2018-06-20 08:35] LABS: PLATELET COUNT 411 10^3/uL (150-400)
--- NOTE | 2018-06-20 12:43 | SOAPPROG ---
SOAP Progress Note Assessment/Plan: Assessment: Debility following spinal surgery with complication of wound infection and L3 compression fracture, status post kyphoplasty and I and D of wound. PT and OT to optimize mobility and activities of daily living toward the independent to modified independent level. Wound infection. Continue antibiotics managed per Infectious Disease. * Check CBC, CMP, and CRP weekly on Mondays, and he will be followed by Dr. Lugo, the infectious disease documentation consultant, during his rehabilitation stay. * CRP improved and no leukocytosis on labs 06/20/2018. Pain control. Continue morphine continuous-release 15 mg t.i.d. Continue oxycodone immediate-release 5-10 mg every 3 hours as needed for breakthrough pain. Continue scheduled acetaminophen and continue scheduled methocarbamol. Gabapentin will be continued for nerve pain. * Increased gabapentin from 400 mg three times daily to 600 mg three times daily starting 06/20/2018 Opiate-induced constipation has been well managed with senna/docusate combination and with polyethylene glycol. These will be continued. Anemia, stable on labs 06/20/2018. Prophylaxis. He has moderate risk for DVT based on surgery and immobility. Continue enoxaparin until his mobility improves considerably. FOLLOWUP: He will be followed by infectious disease physician, Dr. Lugo, while he is in rehabilitation and will follow up with her as well after discharge, and he will follow up with neurosurgeon, Dr. José Luis Rider, after discharge. 06/20/18 12:55 Subjective: Reports continued pain in gluteals. He says he has been able to time is medications so that he gets p.r.n. Oxycodone at bedtime, and then the sustained release morphine holds him through to the morning. He and Physical therapy reports that pain is the most limiting factor regarding his function. Objective: Vital Signs Temp Pulse Resp BP Pulse Ox 36.6 C 87 18 141/96 H 100 06/20/18 08:00 06/20/18 08:00 06/20/18 08:00 06/20/18 08:00 06/20/18 08:00 Laboratory Results 06/20/18 06:30 06/20/18 06:30 06/19/18 06/20/18 06/21/18 05:59 05:59 05:59 Intake Total 2320 100 Output Total 3020 215 Balance -700 -115 Physical Exam - Physical Exam General Appearance: WD/WN, alert, no apparent distress Respiratory: No respiratory distress, No accessory muscle use Skin: normal color, warm/dry Neuro/Psych: alert, normal mood/affect, oriented x 3 ICD10 Worksheet Patient Problems: Problems Problem Status Onset Fracture of femoral neck, right, closed Acute Fusion of spine of lumbar region Acute L3 vertebral fracture Acute Right-sided low back pain with sciatica Acute
[2018-06-20] MEDS: GABAPENTIN 300 MG CAP PO SCH ×2 (16:11→21:13)
[2018-06-20] MEDS: NYSTATIN 15 GM CR TUBE TP SCH (17:36)
[2018-06-21] MEDS: morphINE SR 15 MG TAB PO SCH ×3 (05:21→21:42)
[2018-06-21] MEDS: ceFAZolin 2 GM/DEXTROSE 100 ML IV SCH ×3 (05:21→21:47)
[2018-06-21] MEDS: ACETAMINOPHEN 500 MG TAB PO SCH ×3 (05:21→21:41)
[2018-06-21] MEDS: oxyCODONE IR 5 MG TAB PO PRN ×2 (05:27→11:01)
[2018-06-21] MEDS: NYSTATIN 15 GM CR TUBE TP SCH ×3 (06:46→21:41)
[2018-06-21] MEDS: POLYETHYLENE GLYCOL 3350 17 GM PKT PO SCH (08:08)
[2018-06-21] MEDS: SENNOSIDES/DOCUSATE SODIUM TAB PO SCH ×2 (08:09→21:46)
[2018-06-21] MEDS: ENOXAPARIN 40 MG/0.4 ML SYR SC SCH (08:09)
[2018-06-21] MEDS: GABAPENTIN 300 MG CAP PO SCH ×3 (08:09→21:42)
[2018-06-21] MEDS: METHOCARBAMOL 750 MG TAB PO SCH ×3 (08:09→21:42)
--- NOTE | 2018-06-21 13:36 | SOAPPROG ---
SOAP Progress Note Assessment/Plan: Assessment: Debility following spinal surgery 06/03/2018 with complication of wound infection and L3 compression fracture, status post kyphoplasty and I and D of wound. * He is largely met OT goals as of 06/21/2018. He ambulates up to 150 ft but is limited by pain. * PT and OT to optimize mobility and activities of daily living toward the independent to modified independent level. Wound infection. Continue antibiotics managed per Infectious Disease. * Check CBC, CMP, and CRP weekly on Mondays, and he will be followed by Dr. Lugo, the infectious disease supervisor home energy consultant, during his rehabilitation stay. * CRP improved and no leukocytosis on labs 06/20/2018. Pain control. Continue morphine continuous-release 15 mg t.i.d. Continue oxycodone immediate-release 5-10 mg every 3 hours as needed for breakthrough pain. Continue scheduled acetaminophen and continue scheduled methocarbamol. Gabapentin will be continued for nerve pain. * Increased gabapentin from 400 mg three times daily to 600 mg three times daily starting 06/20/2018 * Pain and not improved 06/21/2018. Will add hydromorphone 2-6 mg Q 3 hr p.r.n. He might have better response to an alternate opiate. * Discussed with neurosurgeon Dr. Rider. Will get CT and MR of the lumbar spine tomorrow, 06/22/2018, and will see Dr. Rider in clinic immediately after. Opiate-induced constipation has been well managed with senna/docusate combination and with polyethylene glycol. These will be continued. Anemia, stable on labs 06/20/2018. Prophylaxis. He has moderate risk for DVT based on surgery and immobility. Continue enoxaparin until his mobility improves considerably. FOLLOWUP: He will be followed by infectious disease physician, Dr. Lugo, while he is in rehabilitation and will follow up with her as well after discharge, and he will follow up with neurosurgeon, Dr. José Luis Rider, on 06/22/2018. JUSTIFICATION FOR WALKER: This patient has a mobility limitation that significantly impairs 1 or more mobility related ADLs in the home. He is able to use a walker safely. His functional mobility deficit cannot be resolved with a cane. 06/21/18 14:26 Subjective: Complains of continued pain, not improved with increased gabapentin dose. Pain is across low back into gluteus and proximal hamstrings bilaterally. It is worse with and after activity. It is significantly limiting his mobility. Otherwise he feels he is ready to go home if he did not have the pain. He reports little relief with oxycodone. Objective: Vital Signs Temp Pulse Resp BP Pulse Ox 36.7 C 129 H 16 93/70 L 97 06/20/18 19:53 06/21/18 10:35 06/21/18 08:00 06/21/18 10:35 06/21/18 08:00 Laboratory Results 06/20/18 06:30 06/20/18 06:30 06/20/18 06/21/18 06/22/18 05:59 05:59 05:59 Intake Total 2320 2700 Output Total 3020 2142.5 Balance -700 557.5 Physical Exam - Physical Exam General Appearance: WD/WN, alert, no apparent distress Respiratory: No respiratory distress, No accessory muscle use Skin: normal color, warm/dry, other (Incision largely healed, lorene in place. Drain site with very minimal erythema and purulence. Draining serosanguineous fluid.) Neuro/Psych: no motor/sensory deficits, alert, normal mood/affect, oriented x 3 ICD10 Worksheet Patient Problems: Problems Problem Status Onset Fracture of femoral neck, right, closed Acute Fusion of spine of lumbar region Acute L3 vertebral fracture Acute Right-sided low back pain with sciatica Acute
[2018-06-21] MEDS: HYDROmorphONE/DILAUDID 2 MG TAB PO PRN ×2 (15:20→19:58)
--- NOTE | 2018-06-21 17:21 | PDOREHIP ---
Admission [facility] - Admission - 3 Day Assessment Period Admission Date/Day 1: 06/17/18 Day 2: 06/18/18 Day 3: 06/19/18 - Active Diagnoses Comorbidities and Co-existing Conditions at Admission: 40077. None of the Above - Skin Conditions Unhealed Pressure Ulcer (1 or more/Stage 1 or >)-Admission: 0. No # Stage 1 Pressure Ulcers-Admission: 0 # Stage 2 Pressure Ulcers-Admission: 0 # Stage 3 Pressure Ulcers-Admission: 0 # Stage 4 Pressure Ulcers-Admission: 0 # Unstageable Pressure Ulcers (Non-remove Dress)-Admission: 0 # Unstageable Pressure Ulcers (Slough/Eschar)-Admission: 0 # Unstageable Pressure Ulcers (Deep Tissue Injury)-Admission: 0
[2018-06-21] MEDS ORDERED: POLYETHYLENE GLYCOL 3350 17 GM PKT PO PRN (17:23)
[2018-06-22] MEDS: ACETAMINOPHEN 500 MG TAB PO SCH ×3 (05:42→21:43)
[2018-06-22] MEDS: morphINE SR 15 MG TAB PO SCH ×3 (05:43→21:44)
[2018-06-22] MEDS: ceFAZolin 2 GM/DEXTROSE 100 ML IV SCH ×3 (05:43→21:42)
--- NOTE | 2018-06-22 07:22 | PCMIDPN ---
Assessment/Plan: # MSSA post op infection s/p L4-S1 TLIF and L3 kyphoplasty and MSSA bacteremia, My impression is that he is gradually improving from infection standpoint, CRP slowly improving, significant improvements in ability to ambulate. Nonetheless, agree with being cautiously optimistic and working up ongoing pain . --continue high dose ancef 2 g IV Q 8, 08/05/18 stop date (8 weeks). --imaging today to help sort out intermittent shooting pains Meds Ancef 2gm IV q8h microbiology 06/07 wound swab: GS MSSA 06/07 wound aspiration: GS:MSSA 06/07 OR swab: GS MSSA 06/07 blood cx 08/17 MSSA 06/09 blood cx (2) Neg Subjective: i watched anshu ambulate and he did quite well. Continuing to walk w walker not for general support during ambulating but for the intermittent shooting pains into hips that are so severe he needs to hold on to something when they come on. Constant pain of lower back is gradually improving No diarrhea No f/c/ns Objective: Vital Signs Temp Pulse Resp BP Pulse Ox 37.1 C 77 14 119/88 H 93 06/22/18 06:27 06/22/18 06:27 06/22/18 06:27 06/22/18 06:27 06/22/18 06:27 Laboratory Results 06/20/18 06:30 06/20/18 06:30 06/21/18 06/22/18 06/23/18 05:59 05:59 05:59 Intake Total 2700 3050 Output Total 2142.5 1479 Balance 557.5 1571 06/07/18 06/11/18 06/12/18 04:38 12:15 05:00 C-Reactive Protein 210.3 H 66.2 H 63.5 H 06/17/18 06/20/18 05:10 06:30 C-Reactive Protein 42.4 H 37.9 H - Physical Exam General Appearance: alert, no apparent distress EENT: other (good dentition MMM) Respiratory: lungs clear, No accessory muscle use Neck: supple Cardiac/Chest: regular rate, rhythm, systolic murmur (faint) Abdomen: normal bowel sounds, non-tender, soft Male Genitalia: No hammond Back: other (incision w lorene - mild pinkness associated w incision and mild swelling, but all of this is improved, PARISH drain w serosang fluid 30-40cc/24hours ) Skin: warm/dry, No diaphoresis, No rash Neuro/Psych: alert, normal mood/affect, oriented x 3, other (ambulating w/o difficulty) - Line/s RUE PICC Lines: No drainage, No erythema - Time Spent With Patient Time Spent with Patient: greater than 35 minutes (case discussed w neurosurgery) Time Spent with Patient: Greater than 35 minutes spent on this patients care, greater than 50% of time spent counseling, educating, and coordinating care regarding the above mentioned plan. ICD10 Worksheet Patient Problems: Problems Problem Status Onset Fracture of femoral neck, right, closed Acute Fusion of spine of lumbar region Acute L3 vertebral fracture Acute Right-sided low back pain with sciatica Acute
[2018-06-22] MEDS: oxyCODONE IR 5 MG TAB PO PRN ×3 (07:43→17:34)
[2018-06-22] MEDS: METHOCARBAMOL 750 MG TAB PO SCH ×3 (08:19→21:43)
[2018-06-22] MEDS: GABAPENTIN 300 MG CAP PO SCH ×3 (08:19→21:43)
[2018-06-22] MEDS: SENNOSIDES/DOCUSATE SODIUM TAB PO SCH ×2 (08:19→21:43)
[2018-06-22] MEDS: ENOXAPARIN 40 MG/0.4 ML SYR SC SCH (08:19)
[2018-06-22] MEDS: NYSTATIN 15 GM CR TUBE TP SCH ×2 (08:20→21:43)
--- NOTE | 2018-06-22 09:48 | SOAPPROG ---
SOAP Progress Note Assessment/Plan: Assessment: Debility following spinal surgery 06/03/2018 with complication of wound infection and L3 compression fracture, status post kyphoplasty and I and D of wound. * He is largely met OT goals as of 06/21/2018. He ambulates up to 150 ft but is limited by pain. * PT and OT to optimize mobility and activities of daily living toward the independent to modified independent level. * PHYSICAL THERAPY TO ADDRESS TIGHTNESS AND WEAKNESS OF THE RIGHT AND LEFT HIP INTERNAL AND EXTERNAL ROTATORS A POSSIBLE SOURCE OF ABOVE DESCRIBED LATERAL HIP GIRDLE/LATERAL BUTTOCK PAIN Wound infection. Continue antibiotics managed per Infectious Disease. * Check CBC, CMP, and CRP weekly on Mondays, and he will be followed by Dr. Lugo, the infectious disease wound care center consultant, during his rehabilitation stay. * CRP improved and no leukocytosis on labs 06/20/2018. * INFECTIOUS DISEASE NOTE FROM THIS MORNING READ AND APPRECIATED. CRP SLOWLY IMPROVING. CONTINUE HIGH DOSE ANCEF 2 G IV Q.8 HOURS, 08/05/2018. DATE PER INFECTIOUS DISEASE NOTES. PATIENT IS HAVING LUMBAR SPINE CT AND MRI TODAY AND THEN WILL HAVE FOLLOW-UP WITH DR. Koroma at [facility]. Pain control. Continue morphine continuous-release 15 mg t.i.d. Continue oxycodone immediate-release 5-10 mg every 3 hours as needed for breakthrough pain. Continue scheduled acetaminophen and continue scheduled methocarbamol. Gabapentin will be continued for nerve pain. * Increased gabapentin from 400 mg three times daily to 600 mg three times daily starting 06/20/2018. Based on patient interview this morning, will not increase gabapentin and less therapy staff reports pain is limiting participation in rehab therapies. * Pain not improved 06/21/2018. Will add hydromorphone 2-6 mg Q 3 hr p.r.n. He might have better response to an alternate opiate. * Discussed with neurosurgeon Dr. Rider. Will get CT and MR of the lumbar spine tomorrow, 06/22/2018, and will see Dr. Rider in clinic immediately after. Opiate-induced constipation has been well managed with senna/docusate combination and with polyethylene glycol. These will be continued. Anemia, stable on labs 06/20/2018. Prophylaxis. He has moderate risk for DVT based on surgery and immobility. Continue enoxaparin until his mobility improves considerably. FOLLOWUP: He will be followed by infectious disease physician, Dr. Lugo, while he is in rehabilitation and will follow up with her as well after discharge, and he will follow up with neurosurgeon, Dr. José Luis Rider, on 06/22/2018. JUSTIFICATION FOR WALKER: This patient has a mobility limitation that significantly impairs 1 or more mobility related ADLs in the home. He is able to use a walker safely. His functional mobility deficit cannot be resolved with a cane. Plan: 06/22/18 09:45 06/22/18 09:48 Subjective: HE REPORTS HE IS HAVING SIGNIFICANT PAIN IN THE RIGHT AND LEFT LATERAL HIP GIRDLE REGION AND PROXIMAL LATERAL BUTTOCKS. IT IS WORSE WHEN HE STANDS AND WALKS. THIS CAUSES HIM TO HAVE A FEELING OF INSTABILITY WHEN PERFORMING TRANSFERS AND WALKING. HE DOES NOT DESCRIBE RIGHT OR LEFT LOWER EXTREMITY RADICULAR PAIN. HE PREVIOUSLY HAD SOME GIVE-WAY WEAKNESS OF THE RIGHT QUADRICEPS BUT THIS HAS RESOLVED. HE ALSO STATES THAT HE HAD SOME LOWER BACK SPASMS WHICH HAS ALSO RESOLVED. HE REPORTS THAT HE IS STILL HAVING SIGNIFICANT LOW BACK PAIN BUT IT IS FAIRLY WELL CONTROLLED ON HIS CURRENT PAIN REGIMEN. Objective: Vital Signs Temp Pulse Resp BP Pulse Ox 37.1 C 77 14 119/88 H 93 06/22/18 06:27 06/22/18 06:27 06/22/18 06:27 06/22/18 06:27 06/22/18 06:27 Laboratory Results 06/20/18 06:30 06/20/18 06:30 06/21/18 06/22/18 06/23/18 05:59 05:59 05:59 Intake Total 2700 3050 500 Output Total 2142.5 1479 350 Balance 557.5 1571 150 Physical Exam - Physical Exam General Appearance: WD/WN, alert, no apparent distress Respiratory: lungs clear, normal breath sounds Cardiac/Chest: regular rate, rhythm, No edema Abdomen: non-tender, soft Skin: warm/dry (LUMBAR SPINE INCISION FRESHLY BANDAGED. NO ERYTHEMA AROUND THE WOUND MARGIN) Extremities: No swelling, No Temo's sign Neuro/Psych: no motor/sensory deficits, alert, normal mood/affect ICD10 Worksheet Patient Problems: Problems Problem Status Onset Fracture of femoral neck, right, closed Acute Fusion of spine of lumbar region Acute L3 vertebral fracture Acute Right-sided low back pain with sciatica Acute
[2018-06-22] MEDS ORDERED: GADOBUTROL 10 ML VIAL IVP ONE (14:06)
--- NOTE | 2018-06-22 15:48 | PDIAF ---
- Diagnosis Diagnosis: MSSA bacteremia and post op infection Code Status: Full Code - Medication Management [place] Tender Antibiotics: cefazolin 6gm IV continuous infusion [place] Tender Antibiotic Stop Date: 08/05/18 Discharge Medications: electronically signed and located in the Home Medication List. PICC Care - Routine: Yes - Orders Services needed: Home Care, Registered Nurse, Physical Therapy Home Care Face to Face: I certify that this patient was under my care and that I had the required [id number] encounter meeting the encounter requirements on the discharge day. My findings support the fact that the patient is homebound as defined in Home Care Face to Face Continued: CMS Chapter 7 Medicare Benefits Manual 30.1.1 , The condition of the patient is such that there exists a normal inability to leave home and consequently, leaving home would require a considerable and taxing effort. Diet Recommendation: no restrictions on diet Diet Texture: Regular Texture Diet - Labs/Radiology CBC w/diff Date: 06/27/18 (Weekly on Wednesday) CMP Date: 06/27/18 (Weekly on Wednesday) CRP Date: 06/27/18 (Weekly on Wednesday) Call or Fax Lab and Imaging Results to: Zayra Lugo MD [facility] for Infectious Diseases at fax [phone] - Follow Up Care Current Providers and Referrals: Arik Ott MD [Primary Care Provider] - Zayra Lugo MD [Medical Doctor] - 07/06/18 2:00 pm
[2018-06-22] MEDS: HYDROmorphONE/DILAUDID 2 MG TAB PO PRN (21:47)
[2018-06-23] MEDS: morphINE SR 15 MG TAB PO SCH ×2 (06:22→13:51)
[2018-06-23] MEDS: ceFAZolin 2 GM/DEXTROSE 100 ML IV SCH ×2 (06:22→13:52)
[2018-06-23] MEDS: ACETAMINOPHEN 500 MG TAB PO SCH ×2 (06:22→13:52)
[2018-06-23 08:12] VITALS: BP 110/75
[2018-06-23] MEDS: GABAPENTIN 300 MG CAP PO SCH (08:44)
[2018-06-23] MEDS: SENNOSIDES/DOCUSATE SODIUM TAB PO SCH (08:44)
[2018-06-23] MEDS: METHOCARBAMOL 750 MG TAB PO SCH (08:44)
[2018-06-23] MEDS: NYSTATIN 15 GM CR TUBE TP SCH (08:45)
[2018-06-23] MEDS: ENOXAPARIN 40 MG/0.4 ML SYR SC SCH (08:45)
--- NOTE | 2018-06-23 12:03 | PDOREHIP ---
Admission [facility] - Admission - 3 Day Assessment Period Admission Date/Day 1: 06/17/18 Day 2: 06/18/18 Day 3: 06/19/18 - Active Diagnoses Comorbidities and Co-existing Conditions at Admission: 39982. None of the Above - Skin Conditions # Stage 1 Pressure Ulcers-Admission: 0 # Stage 2 Pressure Ulcers-Admission: 0 # Stage 3 Pressure Ulcers-Admission: 0 # Stage 4 Pressure Ulcers-Admission: 0 # Unstageable Pressure Ulcers (Non-remove Dress)-Admission: 0 # Unstageable Pressure Ulcers (Slough/Eschar)-Admission: 0 # Unstageable Pressure Ulcers (Deep Tissue Injury)-Admission: 0 Discharge [facility] - Discharge - 3 Day Assessment Period 2 Days Prior to Anticipated Discharge Date: 06/21/17 1 Day Prior to Anticipated Discharge Date: 06/22/17 Anticipated Discharge Date: 06/23/17
--- NOTE | 2018-06-23 13:47 | GDS ---
ADMITTING DIAGNOSES: Debility status post lumbar fusion surgery with subsequent wound infection with debridement and washout. DATE OF SURGERY: June 03, 2018. PROCEDURES: None. CONSULTING PHYSICIANS: Infectious disease service, Dr. Lugo Neurosurgery, Dr. Rider HISTORY OF PRESENT ILLNESS/HOSPITAL COURSE: This patient is status post L4 through S1 lumbar fusion in early May 2018. He presented later that month to [facility] emergency department on 06/03/2018, with intractable low-back pain. Imaging studies revealed compression frac ture at L3 for which he was treated with L3 kyphoplasty. Subsequently, he developed fever and was di agnosed with postop infection of the lumbar spine. He was seen in consultation by Infectious Disease . He underwent incision and drainage on 06/07/2018, with cultures taken which eventually grew methic illin-resistance Staphylococcus aureus. PICC line was placed. Echocardiogram was obtained to rule o ut endocarditis, which showed mild left atrial enlargement and [id number] mitral regurgitation but no vegetations. He was seen by Infectious Disease and started on Ancef 2 g IV q.8 hours. He was medically stable and was transferred to the acute inpatient rehabilitation service at [place] on . At the time of that admission, his elevated white count had resolved. Serum chemistries r evealed normal renal function, electrolytes, and liver functions. Imaging, including lumbar spine MR I obtained on 06/07/2018, showed fluid collection from L3 to S1 that caused [id number] spinal canal narrowing. He was admitted for comprehensive physical and occupational therapy to progress to activities of daily living in the independent and modified-independent level. Wound infection was m onitored daily. He was continued on antibiotics managed per Infectious Disease and was followed by Nolan Lugo. His pain control was initially somewhat of an issue, and apparently the oxycodone continu ous release was not going to be covered by his insurance company so he was placed on morphine continu ous release 15 mg t.i.d. as well as oxycodone immediate release 5-10 mg every 3 hours for breakthroug h pain. Because of complaints of increased pain, he was also started on Dilaudid, which he was takin g on a p.r.n. basis. Other inpatient pain medications included scheduled acetaminophen and scheduled methocarbamol. By 06/21/2018, his occupational therapy goals had largely been met. He was ambulati ng 150 feet with some limitation secondary to pain. CBC, CMP, and CRP were followed and were trendin g downward. Pain control consisted of gabapentin 600 mg t.i.d. starting 06/20/2018, hydromorphone 2- 6 mg q.3 hours p.r.n. pain, and oxycodone 5-10 mg q.3 hours for breakthrough pain. On 06/20/2018, CB C was noted to be 6.7, hemoglobin 10.9, hematocrit 33.3. He was seen by infectious disease, Dr. Angélica smith, on 06/22/2018, who recommended continuing Ancef 2 g IV q.8 hours until 08/05/2018. Team conferen ce on 06/22/2018, revealed FIM score of 111. Patient was modified independent on the unit but was wa lking without assistive devices. He was independent with toileting, with completion of all goals. T herefore, he was deemed to be ready for discharge. Because the patient had some hesitation about adm inistering IV antibiotics through the PICC line at home, he elected to be discharged to the [facility]. He will be discharged there in stable condition. He will continue 2 g Ancef IV q.8 hours. Daily PICC line care. Patient had a lumbar spine MRI over at [facility] on 06/22/2018, [facility] showed nicely drained fluid collection on the right at L4-5 with mild residual narrowing of the th ecal sac at L4-5, decreased left posterolateral paraspinal fluid collection at L4-5. No evidence of diskitis or new paraspinous fluid collection. Bone marrow edema L4, L5, and S1 felt to be reactive d ue to fusion construct. No definite osteomyelitis. The patient was seen in followup by Dr. Radha gayle. He apparently was supposed to have his lorene taken out that day but this was not performed , so arrangements are being made for him to return to Dr. Koroma's office for staple removal in the next 24-48 hours. DISCHARGE MEDICATIONS: Oxycodone 5-10 mg q.3 hours p.r.n. pain. Morphine SR 15 mg q.8 hours. Ancef 2 g/100 mL IV q.8 hours. Alteplase 2 mg vial. Sennoside/docusate sodium 1-2 tablets p.o. b.i.d. M ethocarbamol 750 mg t.i.d. Gabapentin 600 mg t.i.d. Acetaminophen 500 mg tablets 1000 mg p.o. q.8 h ours. MiraLAX 17 g oral p.r.n. constipation. Copy requested to: Dr. Koroma /[id number]/DORAL
[2018-06-23] MEDS: oxyCODONE IR 5 MG TAB PO PRN (13:51)
== END 2018-06-23 15:06 | DRG 560 ==
LOC: BREH 12:06
PROVIDERS: ADMIT Internal Medicine; ATTEND Internal Medicine
DX: Z47.89 Encounter for other orthopedic aftercare (principal); T81.42XA Infection following a procedure, deep incisional surgical site, initial encounter; R53.81 Other malaise; I34.0 Nonrheumatic mitral (valve) insufficiency; K59.03 Drug induced constipation; T40.605A Adverse effect of unspecified narcotics, initial encounter; Z98.1 Arthrodesis status; B95.62 Methicillin resistant Staphylococcus aureus infection as the cause of diseases classified elsewhere
CPT/HCPCS: 97110-GO; 97110-GP; 97116-GP; 97140-GO; 97140-GP; 97161-GP; 97165-GO; 97530-GO; 97530-GP; 97535-GO; A9585; J0690; J1650; J2997

== ENCOUNTER 2018-07-03 21:33 | Observation (INO) | payer OTHER ==
[2018-07-03] MEDS ORDERED: NS 1,000 ML IV ONE (21:53)
--- NOTE | 2018-07-03 21:53 | EDPHY ---
H & P Stated Complaint: back infection increase pain Time Seen by Provider: 07/03/18 21:52 HPI/ROS: HPI CHIEF COMPLAINT: Increasing back pain. HISTORY OF PRESENT ILLNESS: 62-year-old male, presents emergency room for increasing back pain, and unable to ambulate. Patient reports for the past 3 days he has been in bed unable to ambulate. He has been able to get out of bed and go 10 ft to the bathroom. He states other than this he has been feeling increasing back pain, generalized weakness. And inability to function. Use unable to care for himself at home. He arrived back here by ambulance. He did go to rehab previously. He denies any chills, denies fever, denies vomiting or diarrhea. Patient denies any chest pain or shortness of breath. His main complaint is low lumbar back pain. He denies the pain radiating where. Denies saddle anesthesia, denies leg weakness. Patient does have a right arm PICC line and is getting Ancef 3 this. Followed by Infectious Disease Dr. Lugo. Of prior to arriving to the emergency room the patient arrived by EMS received 25 mg IV ketamine. Upon my evaluation the patient does appear little bit intoxicated from this, sleepy. Past Medical History: Significant medical history for L4 through S1 fusion, subsequently back infection, PICC line, kyphoplasty Past Surgical History: L4 through S1 fusion. Kyphoplasty L3. Social History: Denies drugs alcohol tobacco. Family History: Noncontributory ROS REVIEW OF SYSTEMS: 10 Systems were reviewed and negative with the exception of the elements mentioned in the history of present illness. Exam Constitutional nontoxic, triage nursing summary reviewed, vital signs reviewed , awake/alert appears dehydrated, nontoxic, Vital signs reviewed. Afebrile here. Eyes normal conjunctivae and sclera, EOMI, PERRLA. HENT normal inspection, atraumatic, dry mucus membranes, no epistaxis, neck supple/ no meningismus, no raccoon eyes. Respiratory clear to auscultation bilaterally, normal breath sounds, no respiratory distress, no wheezing. Cardiovascular rate normal, regular rhythm, no murmur, no edema, distal pulses normal. Gastrointestinal soft, non-tender, no rebound, no guarding, normal bowel sounds, no distension, no pulsatile mass. Genitourinary no CVA tenderness. Musculoskeletal right arm shows a right arm PICC line. no midline vertebral tenderness, full range of motion, no calf swelling, no tenderness of extremities , no meningismus, good pulses, neurovascularly intact. Skin pink, warm, & dry, no rash, skin atraumatic. Neurologic able to lift his legs up appropriately off the bed, awake, alert and oriented x 3, AAOx3, moves all 4 extremities equally, motor intact, sensory intact, CN II-XII intact, normal cerebellar, normal vision, normal speech. Psychiatric normal mood/affect. Heme/Lymph/Immune no lymphadenopathy. Differential Diagnosis: Includes but is not limited to in a particular order generalized weakness, dehydration, electrolyte disturbance, failure to thrive, acute on chronic back pain, worsening back pain, infection, spinal epidural abscess, diskitis, osteomyelitis Medical Decision Making: Plan for this patient IV establishment with blood draw , inflammatory markers, IV fluid bolus, Re-evaluation: MRI of the lumbar spine reviewed. No evidence of acute infection. Spinal canal stenosis L3 may be the cause of his pain. Patient's blood work has been reviewed no high white blood cell count. Patient does not have a fever here. Given the patient's inability to walk or unable to take care of himself at home , and increasing back pain the patient need to be readmitted to the hospital. I have asked the hospitalist service Dr. Kelley to admit. He agrees. Source: Patient - Personal History Current Tetanus/Diphtheria Vaccine: Yes Current Tetanus Diphtheria and Acellular Pertussis (TDAP): Yes - Medical/Surgical History Hx Asthma: No Hx Chronic Respiratory Disease: No Hx Diabetes: No Hx Cardiac Disease: No Hx Renal Disease: No Hx Cirrhosis: No Hx Alcoholism: No Hx HIV/AIDS: No Hx Splenectomy or Spleen Trauma: No Other PMH: back surgeries, right hip replacementsurgery, rhinoplasty x 2 , irregular heart beat at times - Social History Smoking Status: Never smoked Constitutional: Initial Vital Signs Temperature (C) 36.6 C 07/03/18 21:40 Heart Rate 89 07/03/18 21:40 Respiratory Rate 18 07/03/18 21:40 Blood Pressure 103/79 07/03/18 21:40 O2 Sat (%) 97 07/03/18 21:40 O2 Delivery Mode Room Air Allergies/Adverse Reactions: No Known Drug Allergies Allergy (Unknown, Verified 07/03/18 21:44) Home Medications: Medication Instructions Recorded Gabapentin [Neurontin 300 MG (*)] 600 mg PO TID #21 cap 06/22/18 Methocarbamol [Robaxin 750 mg (*)] 750 mg PO TID #21 tab 06/22/18 Sennosides/Docusate Sodium 1 - 2 tab PO BID #15 tab 06/22/18 [Senokot-S] ceFAZolin 2 GM/DEXTROSE [Ancef] 2 gm IV Q8HRS #132 bag 06/22/18 morphINE SR [Ms Contin/Oramorph 15 15 mg PO Q8 #21 tab 06/22/18 mg (*)] Medical Decision Making - Data Points Laboratory Results: Laboratory Results 07/03/18 21:50 07/03/18 21:50 Medications Given: Discontinued Medications Enoxaparin Sodium (Lovenox) 40 mg SC DAILY [facility] Stop: 12/31/18 08:59 Last Admin: 07/05/18 09:55 Dose: 40 mg Gabapentin (Neurontin) 600 mg PO TID [facility] Stop: 12/31/18 08:59 Last Admin: 07/05/18 15:14 Dose: 600 mg Sodium Chloride (Ns) 1,000 mls @ 0 mls/hr IV EDNOW ONE; Wide Open PRN Reason: Protocol Stop: 07/03/18 21:54 Last Admin: 07/03/18 22:01 Dose: 1,000 mls Cefazolin Sodium/Dextrose (Ancef) 100 mls @ 200 mls/hr IV Q8HRS [facility] Stop: 08/03/18 05:59 Last Admin: 07/05/18 15:03 Dose: Not Given Lorazepam (Ativan Injection) 0.5 mg IVP EDNOW ONE Stop: 07/03/18 22:46 Last Admin: 07/03/18 22:49 Dose: 0.5 mg Methocarbamol (Robaxin) 750 mg PO TID [facility] Stop: 12/31/18 08:59 Last Admin: 07/05/18 15:14 Dose: 750 mg Morphine Sulfate (Ms Contin/Oramorph) 15 mg PO Q8 [facility] Stop: 07/14/18 05:59 Last Admin: 07/05/18 15:04 Dose: Not Given Oxycodone HCl (Oxycodone Ir) 5 - 10 mg PO Q3HRS PRN PRN Reason: Pain, Severe Able to Take PO Stop: 07/14/18 00:11 Last Admin: 07/05/18 03:46 Dose: 5 mg Senna/Docusate Sodium (Senokot-S) 1 - 2 tab PO BID [facility] Stop: 12/31/18 08:59 Last Admin: 07/05/18 09:55 Dose: 1 tab Departure - Departure Disposition: [facility] Acute Clinical Impression: Back pain Qualifiers: Back pain location: low back pain Chronicity: chronic Back pain laterality: unspecified Sciatica presence: without sciatica Qualified Code(s): M54.5 - Low back pain; G89.29 - Other chronic pain; G89.29 - Other chronic pain Condition: Good
[2018-07-03 22:08] LABS: PLATELET COUNT 349 10^3/uL (150-400)
[2018-07-03 22:20] LABS: INR 1.13 (0.83-1.16); PROTIME(PATIENT) 14.7 SEC (12.0-15.0)
[2018-07-03] MEDS ORDERED: LORazepam 2 MG/ML INJ IVP ONE (22:45)
[2018-07-03] MEDS ORDERED: GADOBUTROL 10 ML VIAL IVP ONE (23:17)
[2018-07-04] MEDS ORDERED: ONDANSETRON 4 MG/2 ML VIAL IVP PRN (00:12)
[2018-07-04] MEDS ORDERED: ACETAMINOPHEN 325 MG TAB PO PRN (00:12)
[2018-07-04] MEDS ORDERED: ONDANSETRON DISINTEGRATING 4 MG TAB PO PRN (00:12)
[2018-07-04] MEDS: oxyCODONE IR 5 MG TAB PO PRN ×6 (01:29→16:28)
--- NOTE | 2018-07-04 01:37 | PDGENHP ---
History and Physical - Chief Complaint Back pain - History of Present Illness 62 yo M s/p recent spinal surgery complicated by infection presents with uncontrolled back pain. The patient has recently undergone a complicated medical course. He was admitted in May for an L4-S1 fusion. He was then found to have an L3 compression fracture, which was treated with a kyphoplasty. Subsequently he developed infectious symptoms and was found to have post- operative MSSA infection and bacteremia. This has been under treatment with Ancef IV via PICC line. He was transferred to acute rehab on 06/17. From there he was discharged to [facility]. Per review of the acute rehab d/c summary, he was discharged on a pain medication regimen of oxycodone 5-10 mg q3h PRN, morphine SR 15 mg TID, methocarbamol 750 mg TID, and gabapentin 600 mg TID. The patient tells me he was only given morphine SR 15 mg daily, methocarbamol 750 TID, and gabapentin 600 mg TID upon discharge home from the SNF. He was discharged home 4 days ago. 3 days ago he began to experience uncontrolled pain, which has greatly limited his mobility. He is unable to walk and make it to the bathroom. He denies red flag symptoms such as bowel/bladder incontinence or leg weakness. He also denies fevers/chills and tells me he has had no issues with his antibiotic administration. MRI performed in the ED shows no signs of new or worsening infection per preliminary report. He is being admitted for pain management. Case discussed with ED physician Dr. Veronica; records reviewed and summarized above. History Information - Allergies/Home Medication List Allergies/Adverse Reactions: No Known Drug Allergies Allergy (Unknown, Verified 07/03/18 21:44) I have personally reviewed and updated: family history, medical history - Past Medical History arthritis - Surgical History Additional surgical history: L4-S1 fusion. L3 kyphoplasty - Family History Positive for: cancer - Social History Smoking Status: Never smoked Review of Systems Review of Systems: ROS: 10pt was reviewed & negative except for what was stated in HPI & below Physical Exam Physical Exam: Temp Pulse Resp BP Pulse Ox 36.4 C 87 16 131/96 H 92 07/04/18 01:01 07/04/18 01:01 07/04/18 01:01 07/04/18 01:01 07/04/18 01:01 Constitutional: appears nourished, uncomfortable Eyes: PERRL, EOMI Ears, Nose, Mouth, Throat: moist mucous membranes, no oral mucosal ulcers Cardiovascular: regular rate and rhythym, no murmur, rub, or gallop Respiratory: no respiratory distress, clear to auscultation Gastrointestinal: normoactive bowel sounds, soft, non-tender abdomen Skin: warm, normal color Musculoskeletal: full muscle strength, no muscle tenderness Neurologic: AAOx3, CN II-XII Intact Psychiatric: interacting appropriately, not anxious Lab Data & Imaging Review 07/03/18 21:50 07/03/18 21:50 WBC 4.35 10^3/uL (3.80-9.50) 07/03/18 21:50 RBC 4.36 10^6/uL (4.40-6.38) L 07/03/18 21:50 Hgb 12.5 g/dL (13.7-17.5) L 07/03/18 21:50 Hct 38.5 % (40.0-51.0) L 07/03/18 21:50 MCV 88.3 fL (81.5-99.8) 07/03/18 21:50 MCH 28.7 pg (27.9-34.1) 07/03/18 21:50 MCHC 32.5 g/dL (32.4-36.7) 07/03/18 21:50 RDW 11.9 % (11.5-15.2) 07/03/18 21:50 Plt Count 349 10^3/uL (150-400) 07/03/18 21:50 MPV 9.1 fL (8.7-11.7) 07/03/18 21:50 Neut % (Auto) 42.6 % (39.3-74.2) 07/03/18 21:50 Lymph % (Auto) 41.6 % (15.0-45.0) 07/03/18 21:50 Warrick % (Auto) 9.2 % (4.5-13.0) 07/03/18 21:50 Eos % (Auto) 5.3 % (0.6-7.6) 07/03/18 21:50 Baso % (Auto) 1.1 % (0.3-1.7) 07/03/18 21:50 Nucleat RBC Rel Count 0.0 % (0.0-0.2) 07/03/18 21:50 Absolute Neuts (auto) 1.85 10^3/uL (1.70-6.50) 07/03/18 21:50 Absolute Lymphs (auto) 1.81 10^3/uL (1.00-3.00) 07/03/18 21:50 Absolute Monos (auto) 0.40 10^3/uL (0.30-0.80) 07/03/18 21:50 Absolute Eos (auto) 0.23 10^3/uL (0.03-0.40) 07/03/18 21:50 Absolute Basos (auto) 0.05 10^3/uL (0.02-0.10) 07/03/18 21:50 Absolute Nucleated RBC 0.00 10^3/uL (0-0.01) 07/03/18 21:50 Immature Gran % 0.2 % (0.0-1.1) 07/03/18 21:50 Immature Gran # 0.01 10^3/uL (0.00-0.10) 07/03/18 21:50 ESR 80 MM/HR (0-20) H 07/03/18 21:50 PT 14.7 SEC (12.0-15.0) 07/03/18 22:08 INR 1.13 (0.83-1.16) 07/03/18 22:08 APTT 31.9 SEC (23.0-38.0) 07/03/18 22:08 VBG Lactic Acid 1.6 mmol/L (0.7-2.1) 07/03/18 22:00 Sodium 141 mEq/L (135-145) 07/03/18 21:50 Potassium 3.9 mEq/L (3.3-5.0) 07/03/18 21:50 Chloride 104 mEq/L (97-110) 07/03/18 21:50 Carbon Dioxide 26 mEq/l (22-31) 07/03/18 21:50 Anion Gap 11 mEq/L (6-14) 07/03/18 21:50 BUN 8 mg/dL (7-23) 07/03/18 21:50 Creatinine 0.7 mg/dL (0.7-1.3) 07/03/18 21:50 Estimated GFR > 60 07/03/18 21:50 Glucose 133 mg/dL (70-100) H 07/03/18 21:50 Calcium 9.5 mg/dL (8.5-10.4) 07/03/18 21:50 C-Reactive Protein 48.4 mg/L (<10.0) H 07/03/18 21:50 Assessment & Plan Assessment: 62 yo M w/ recent spinal surgery complicated by infection presents with uncontrolled pain. Plan: 1. Acute on chronic back pain - I suspect this is due to a decrease in the pain medication regimen that helped him stabilize in rehab. Per review of the acute rehab d/c summary, he was discharged to SNF on a pain medication regimen of oxycodone 5-10 mg q3h PRN, morphine SR 15 mg TID, methocarbamol 750 mg TID, and gabapentin 600 mg TID. The patient tells me he was only given morphine SR 15 mg daily, methocarbamol 750 TID, and gabapentin 600 mg TID upon discharge home from the SNF. His pain became uncontrolled quickly afterwards. Preliminary report from MRI reveals no new or worsening infection. He denies infectious or red flag symptoms. - Admit for pain control - Will restart previous pain medication regimen: oxycodone 5-10 mg q3h PRN, morphine SR 15 mg TID, methocarbamol 750 mg TID, and gabapentin 600 mg TID - PT/OT evaluations - Await final MRI report to assure no new complicating factors 2. MSSA post-operative infection - On Cefazolin 2 g IV q8h for 8 weeks, end date 08/05/18. No infectious symptoms at this time. - Continue cefazolin 2 g IV q8h 3. Recent spinal fusion and kyphoplasty - Patient denies bowel/bladder incontinence or leg weakness. - Await final MRI read Diet - Regular Code - Full Ppx - LMWH Dispo - Admit under observation status
[2018-07-04] MEDS: morphINE SR 15 MG TAB PO SCH ×3 (05:43→21:52)
[2018-07-04] MEDS: ceFAZolin 2 GM/DEXTROSE 100 ML IV SCH ×3 (05:55→21:52)
[2018-07-04] MEDS ORDERED: DEXTROSE 2 GM IV SCH (06:00)
[2018-07-04] MEDS ORDERED: CEFAZOLIN IV SCH (06:00)
[2018-07-04 06:08] LABS: PLATELET COUNT 298 10^3/uL (150-400)
[2018-07-04] MEDS: SENNOSIDES/DOCUSATE SODIUM TAB PO SCH ×2 (08:28→21:51)
[2018-07-04] MEDS: GABAPENTIN 300 MG CAP PO SCH ×3 (08:29→21:52)
[2018-07-04] MEDS: METHOCARBAMOL 750 MG TAB PO SCH ×3 (08:29→21:51)
[2018-07-04] MEDS: ENOXAPARIN 40 MG/0.4 ML SYR SC SCH (08:29)
--- NOTE | 2018-07-04 13:21 | HOSPPROG ---
Hospitalist Progress Note Assessment/Plan: 62 yo M w/ recent spinal surgery complicated by infection presents with uncontrolled pain. D/W Dr Gupta. First encounter this hospital course. Chart and history reviewed. meds discussed with RN and pharmacy. Plan: #Acute on chronic back pain - I suspect this is due to a decrease in the pain medication regimen -restarted pain meds -pain better -pt responds well to Oxycontin CR however his insurance wont pay for it -DC from SNF on a pain medication regimen of oxycodone 5-10 mg q3h PRN, morphine SR 15 mg TID, methocarbamol 750 mg TID, and gabapentin 600 mg TID. -- The patient tells me he was not given those meds at home -His pain became uncontrolled quickly afterwards # Recent MSSA post-operative infection - MRI reveals no new or worsening infection. -He denies infectious or red flag symptoms. - On Cefazolin 2 g IV q8h for 8 weeks, end date 08/05/18. -No infectious symptoms at this time. - Continue cefazolin 2 g IV q8h # Recent spinal fusion and kyphoplasty - Patient denies bowel/bladder incontinence or leg weakness. -PT/OT Diet - Regular Code - Full Ppx - LMWH Dispo - Change to inpt status DC in am if pain controlled D/W CM Subjective: Frustrated about situation. Pain better but still present. Has concerns bout going home. Objective: Vital Signs Temp Pulse Resp BP Pulse Ox 36.5 C 80 12 112/82 H 95 07/04/18 07:52 07/04/18 07:52 07/04/18 07:52 07/04/18 07:52 07/04/18 07:52 Laboratory Results 07/04/18 05:35 07/04/18 05:35 07/03/18 07/04/18 07/05/18 05:59 05:59 05:59 Intake Total 1105 Output Total 400 1200 Balance 705 -1200 PT 14.7 SEC (12.0-15.0) 07/03/18 22:08 INR 1.13 (0.83-1.16) 07/03/18 22:08 - Physical Exam Constitutional: chronically ill appearing, uncomfortable, unkempt Eyes: PERRL, anicteric sclera, EOMI Ears, Nose, Mouth, Throat: moist mucous membranes, hearing normal, ears appear normal Cardiovascular: No JVD, No tachycardia, No edema Respiratory: no respiratory distress, no rales or rhonchi, reduced air movement Gastrointestinal: normoactive bowel sounds, No tenderness, No ascites Skin: warm, normal color, No mottled Musculoskeletal: joint tenderness, pain with ROM, muscular tenderness, abnormal gait, generalized weakness Neurologic: AAOx3 Psychiatric: not encephalopathic, anxious, poor insight ICD10 Worksheet Patient Problems: Problems Problem Status Onset Fracture of femoral neck, right, closed Acute Fusion of spine of lumbar region Acute Right-sided low back pain with sciatica Acute L3 vertebral fracture Acute
--- NOTE | 2018-07-04 15:01 | ASMTCMCOM ---
CM Note CM Note Notes: Pt has had recent spinal fusion May, and has been at [facility] recently. 06/17/18 pt d/c to [facility] inpatient rehab, from inpatient rehab pt went to [facility]. Lupe at [facility] reports pt demanded to leave last week, while it was not an AMA [facility] did not recommend he leave. Pt pain best controlled with Oxycontin CR, which his insurance does not cover. Pt considering paying for the medication himself. Pt also does not feel pt should be on opiates due to a prior drug addiction and pt says his wifes brother has dealt with opiate addiction so this experience is impacting her idea of what pt should have. may be holding some of pt medication from him. Pt did not want this CM to call his , did not think it would be beneficial. Pt open with [facility] for IV antibiotics. [facility] will need to deliver IV antibiotics at d/c. Pt does not have worsening infection, pain is controlled here and pt likely d/c tomorrow. Pt declined list for private pay caregivers. D/c plan of care: Home with continued services of [facility] for IV antibiotics Date Signed: 07/04/2018 03:00 PM Electronically Signed By:HITESH Blake
[2018-07-05] MEDS: oxyCODONE IR 5 MG TAB PO PRN (03:46)
[2018-07-05] MEDS: morphINE SR 15 MG TAB PO SCH ×2 (05:49→15:04)
[2018-07-05] MEDS: ceFAZolin 2 GM/DEXTROSE 100 ML IV SCH ×2 (05:49→15:03)
[2018-07-05 07:56] VITALS: BP 118/81
[2018-07-05] MEDS: METHOCARBAMOL 750 MG TAB PO SCH ×2 (09:55→15:14)
[2018-07-05] MEDS: SENNOSIDES/DOCUSATE SODIUM TAB PO SCH (09:55)
[2018-07-05] MEDS: GABAPENTIN 300 MG CAP PO SCH ×2 (09:55→15:14)
[2018-07-05] MEDS: ENOXAPARIN 40 MG/0.4 ML SYR SC SCH (09:55)
--- NOTE | 2018-07-05 11:12 | PCMIDPN ---
Assessment/Plan: MSSA post op infection s/p L4-S1 TLIF and L3 kyphoplasty and MSSA bacteremia, CRP overall down, but a big sluggish. Other than 2 episodes of shuffling gate, MRI appears overall improved and pain is gradually improving. --continue high dose ancef, 08/05/18 stop date (8 weeks). --dc ok from ID standpoint Microbiology 06/09/18 blood cx (2) negative Subjective: Pt complains of "shuffling" episodes x2, that occurred in the middle of the night with no associated pain. States that he consciously tried to walk with a normal gait, but could only shuffle. Overall back pain continues to improve. Denies associated fever, chills, loss in appetite, incontinence, or insomnia. He is eager to go home today. Went to SNF after rehab and found care not very helpful. Objective: Radiology 07/03/18 CT Lumbar spine WWO contrast: Severe stenosis at L3-L4, no overt evidence of recurrent epidural abscess or osteomyelitis. Vital Signs Temp Pulse Resp BP Pulse Ox 36.7 C 95 17 118/81 H 94 07/05/18 07:55 07/05/18 07:55 07/05/18 07:55 07/05/18 07:55 07/05/18 07:55 Laboratory Results 07/04/18 05:35 07/04/18 05:35 07/04/18 07/05/18 07/06/18 05:59 05:59 05:59 Intake Total 1105 1400 Output Total 400 3075 775 Balance 705 -1675 -775 ESR 80 MM/HR (0-20) H 07/03/18 21:50 C-Reactive Protein 48.4 mg/L (<10.0) H 07/03/18 21:50 Scribe attestation: IMera, am scribing for, and in the presence of, Zayra Lugo MD. Zayra Giles MD, personally performed the services described in this documentation, as scribed by Mera Lopez in my presence, and it is both accurate and complete. - Physical Exam General Appearance: alert, no apparent distress Respiratory: lungs clear Cardiac/Chest: regular rate, rhythm Extremities: normal range of motion, other (bilateral leg lifts performed without significant difficulty or pain ) Back: other (7 cm well healed incision, mild pain while rolling over to left trendelenburg position), No spine tenderness Skin: normal color, warm/dry Neuro/Psych: no motor/sensory deficits, normal mood/affect, oriented x 3 - Line/s RUE PICC Lines: No drainage, No erythema - Time Spent With Patient Time Spent with Patient: greater than 35 minutes (care coordinated w neurosurg and hospitalist. Patient examined with Mouna Carrillo NP) Time Spent with Patient: Greater than 35 minutes spent on this patients care, greater than 50% of time spent counseling, educating, and coordinating care regarding the above mentioned plan. ICD10 Worksheet Patient Problems: Problems Problem Status Onset Back pain Acute Fracture of femoral neck, right, closed Acute Fusion of spine of lumbar region Acute L3 vertebral fracture Acute Right-sided low back pain with sciatica Acute
--- NOTE | 2018-07-05 11:13 | HOSPPROG ---
Hospitalist Progress Note Assessment/Plan: 62 yo M w/ recent spinal surgery complicated by infection presents with uncontrolled pain. His was holding back some of his pain medications. First encounter, chart reviewed. Spoke daniella Lugo with neurosurgery about his care. Dr Lugo here to f/u with Carlos Enrique. She and I met with him together to discuss plan of care. * Acute on chronic back pain -MRI report shows inflammation, doubtful for infections -will await final input from neurosurgery -patient said his back pain is much improved and is cutting back on pain medications * MSSA post-operative infection - Cefazolin 2 g IV q8h for 8 weeks, end date 08/05/18. - Continue cefazolin 2 g IV q8h *shuffling gait -has had two episodes of this during the night, reviewed his care daniella Lugo PA -no clear cut etiology * Recent spinal fusion and kyphoplasty - Patient denies bowel/bladder incontinence or leg weakness. *plan: will likely dc later today, has had scripts filled on 06/30/18. Carlos Enrique said he is weaning off all pain medications. Subjective: Carlos Enrique is feeling much better today, no complaints. Objective: Vital Signs Temp Pulse Resp BP Pulse Ox 36.7 C 95 17 118/81 H 94 07/05/18 07:55 07/05/18 07:55 07/05/18 07:55 07/05/18 07:55 07/05/18 07:55 Laboratory Results 07/04/18 05:35 07/04/18 05:35 07/04/18 07/05/18 07/06/18 05:59 05:59 05:59 Intake Total 1105 1400 Output Total 400 3075 775 Balance 705 -1675 -775 PT 14.7 SEC (12.0-15.0) 07/03/18 22:08 INR 1.13 (0.83-1.16) 07/03/18 22:08 - Physical Exam Constitutional: no apparent distress, appears nourished, uncomfortable Eyes: PERRL Ears, Nose, Mouth, Throat: hearing normal Cardiovascular: regular rate and rhythym Respiratory: no respiratory distress Skin: warm, other (incision on his back is well approximated, no drainage, no warmth or oozing) Neurologic: AAOx3 Psychiatric: interacting appropriately ICD10 Worksheet Patient Problems: Problems Problem Status Onset Fracture of femoral neck, right, closed Acute Fusion of spine of lumbar region Acute L3 vertebral fracture Acute Right-sided low back pain with sciatica Acute
--- NOTE | 2018-07-05 13:14 | PDIAF ---
- Diagnosis Diagnosis: MSSA bacteremia and lumbar spine post op infection Code Status: Full Code - Medication Management [facility] Antibiotics: cefazolin 6gm IV continuous infusion [facility] Antibiotic Stop Date: 08/05/18 Discharge Medications: electronically signed and located in the Home Medication List. PICC Care - Routine: Yes - Orders Services needed: Home Care, Registered Nurse, Physical Therapy Home Care Face to Face: I certify that this patient was under my care and that I had the required [id number] encounter meeting the encounter requirements on the discharge day. My findings support the fact that the patient is homebound as defined in Home Care Face to Face Continued: CMS Chapter 7 Medicare Benefits Manual 30.1.1 , The condition of the patient is such that there exists a normal inability to leave home and consequently, leaving home would require a considerable and taxing effort. Isolation Type: None - Labs/Radiology CBC w/diff Date: 07/11/18 (weekly wednesday) CMP Date: 07/11/18 (weekly wednesday) CRP Date: 07/11/18 (weekly wednesday) Call or Fax Lab and Imaging Results to: Zayra Lugo MD [facility] at fax [phone] - Follow Up Care Current Providers and Referrals: Arik Ott MD [Primary Care Provider] - As per Instructions Zayra Lugo MD [Medical Doctor] - follow up in 10 days
--- NOTE | 2018-07-05 13:20 | GCON ---
CONSULTATION HISTORY AND PHYSICAL CHIEF COMPLAINT: Back pain. HISTORY OF PRESENT ILLNESS: The patient is a 62-year-old male who recently underwent surgery. He is about 6 weeks out from a L4-L5, L5-S1 TLIF with Dr. José Luis Rider that occurred on May 26, 2018. He developed a compression fracture above his construct and underwent a kyphoplasty at L3. He subsequently had issues with postoperative infection, had 2 separate clean-out surgeries for this. He comes back into the emergency department with lower back pain. He does have a postoperative infec tion that grew out MSSA. He is on antibiotics accordingly. After his surgery, he was transferred to an acute rehab. On 06/17, he was discharged [facility]. He was discharged with pain medi cation of oxycodone, morphine, methocarbamol, gabapentin, and he was discharged 4 days ago. The day after he was discharged, approximately 3 days ago, he began to experience uncontrollable pain that gr eatly limited his mobility. He was unable to walk and make it to the bathroom. This was due to the pain. This morning when I saw him, he is doing better. He was asking to be discharged home. He denies any other symptoms, such as loss of bowel or bladder control. No numbness. No saddle numbness. No leg weakness. He denies any fevers or chills. He has no has had no issues with his antibiotic administ ration. He did get an MRI in the emergency department that showed no signs of new or worsening infec tion. He was admitted for pain management. We were consulted due to this pain. Currently, he descr ibes no pain in his legs. No numbness, tingling, or weakness in his legs. He has no upper extremity complaints. As mentioned, he has no saddle numbness or bowel or bladder changes. He is walking oka y right now. He has had some difficulty with pain management over his course of his stay. PAST MEDICAL HISTORY: Significant for arthritis. PAST SURGICAL HISTORY: 1. L4-5 L5-S1 fusion. 2. L3 kyphoplasty. 3. Two separate washout procedures for MSSA infection. FAMILY HISTORY: Positive for cancer. SOCIAL HISTORY: The patient is a 62-year-old male who is . He lives in [place]. He has neve r smoked. Does not drink any excessive alcohol. ALLERGIES: No known drug allergies. MEDICATIONS: Please see medication reconciliation form. REVIEW OF SYSTEMS: A complete 10-point review of systems was negative, otherwise noted in HPI and ab ove. HEENT: The patient denies any headache. No diplopia. No blurred vision. No loss of visual f ield. No hearing loss, tinnitus, or vertigo. PULMONARY: No cough, sputum production, hemoptysis, d yspnea, or pleuritic chest pain. CARDIAC: No chest pain or pressure. No palpitations. GI: No weig ht loss or gain. No nausea, vomiting, or diarrhea. : No dysuria, hematuria, nocturia, urgency, o r frequency. NEURO: Patient denies any dizziness, syncope, seizures, vertigo, paresthesias, weaknes s. PHYSICAL EXAM: GENERAL: This is awake, alert, oriented male in no acute distress. VITAL SIGNS: Mo recent: Blood pressure 118/81 with a MAP of 93, 95 heart rate, 17 respirations, 94% on room air, t emperature 36.7. HEENT: Head is normocephalic, atraumatic. Pupils are equal, round, reactive to lig ht. EOMI is intact. Full visual owusu by confrontation. Ears are patent. Nose is patent. NECK: Soft and supple. No midline tenderness. Full range of motion of flexion, extension, lateral bendin g, rotation, rest. No nuchal rigidity. RESPIRATORY/CARDIAC: Deferred. ABDOMEN: Soft, nontender. No peritoneal signs. /RECTAL: Deferred. NEURO: Patient is awake, alert, oriented to name, plac e, location, date, time, situation. Memory is intact to immediate, past, and current events. Speech : No aphasia, dysarthria, or dysphonia. Cranial nerves 2-12 grossly intact. Motor: Patient has 5/ 5 strength in all muscle groups of bilateral upper and lower extremities to include deltoids, biceps, triceps, brachioradialis, wrist flexion and extensors, marketing clerk, intrinsic fingers iliopsoas, quadriceps , hamstring, plantar flexion, dorsiflexion, EHL testing. Sensation is grossly intact to light touch throughout all dermatome distributions upper extremities. Negative straight leg raise. Negative ASTRID ER test. Reflexes of biceps, triceps, brachioradialis, knee jerk and ankle jerk 2+/4. Toes are down going bilaterally. Recio's negative. Babinski negative. No evidence of clonus. MEDICAL DECISION MAKING/DIAGNOSTIC STUDIES/LABORATORY: Obtained 07/04/2018, shows a white count of 4 .21 with an H and H of 11.0 and 33.4 with a platelet count of 298. Sedimentation rate was 80 on 06/16. Prior to that, sedimentation rate was 89 on 06/12, 06/11 was 64, 06/07 was 100. 07/03/2018, shows PT of 14.7, INR of 1.13, PTT of 31.9. Lactic acid was 1.6 on 07/03/2018. Chemistry on 2017: Sodium 141, potassium 4.1, chloride 107, CO2 27, BUN 9, creatinine 0.7, and a glucose of 85. C-reactive protein obtained 07/03/2018, was 48.4, prior to that on 06/07, it was 210.3, and then prog ressed down on 06/11 and at 66.2 and 63.5. MEDICAL DECISION MAKING/DIAGNOSTIC STUDIES/IMAGING: X-rays lumbar spine obtained 07/05/2018, at 8:43 a.m. shows stable lumbar spine with fusion L4-S1 with L3 kyphoplasty noted. The patient does have s ignificant stenosis at L3-4. MRI of the lumbar spine dated 07/03/2018, at 2001 showed no convincing evidence of recurrent epidural abscess or osteomyelitis. There was noted severe central canal stenosis at L3-4 and this was none o n prior imaging. The superficial fluid collection in the lower lumbar spine noted decrease in size. IMPRESSION: 1. Prior lumbar spine surgery L4-5 L5-S1 transforaminal lumbar interbody fusion May 26, 2018, wi th followup kyphoplasty, and 2 subsequent washout surgeries for MSSA infection. 2. Repeat MRI last a.m. showed continued severe central canal stenosis at L3-4 and noted superficial fluid collection had decrease in size, but no evidence of recurrent epidural abscess or osteomyeliti s was noted. PLAN/DISCUSSION: The patient is a 62-year-old male who underwent a TLIF procedure at L4-5, L5-S1 wit h Dr. José Luis Rider on 05/26/2018, subsequently had a kyphoplasty at L3, and 2 wash out surgerie s for MSSA infection. He currently is on antibiotics. He presents on this hospital stay with lower back pain. X-rays of the lower back were reviewed, which showed no obvious complication with well placed hardwar e. He had an MRI of the lumbar spine that showed decrease in the prior fluid collection noted. Ther e was no convincing evidence for osteomyelitis as well. He does have severe stenosis at L3-4, and th is could be a likely cause of his lower back pain. He was seen by Dr. Lugo from Infectious Disease as well. Currently, we are working on a pain management strategy for him in his recovery. He likely will need surgery at this 3-4 level at some point, but will need to clear this infection prior to any surgery being performed at this level. Neurologically, he is fine distally with good strength in both legs. He is walking well now. He did have this issue a couple of nights ago where he states he could only take "baby steps," but this has resolved. He will be seen and evaluated by Dr. Gar as well. All questions and concerns were answered. /[id number]/MODL
--- NOTE | 2018-07-05 16:36 | ASMTLACE ---
LACE Length of stay for Answers: 2 days current admission Acuity / Level of Answers: Yes Care: Did the patient have an inpatient admission? Comorbidities - select Answers: Opioid dependence all that apply / Chronic pain # of Emergency department Answers: 1-2 visits in the last 6 months Score: 10 Date Signed: 07/05/2018 04:35 PM Electronically Signed By:HITESH Blake
--- NOTE | 2018-07-05 16:43 | ASMTCMCOM ---
CM Note CM Note Notes: Pt medically stable for d/c home with continued services for [facility] and [facility]. New orders sent to [facility] and [facility]. Neurosurgery consulted, they are working w pt on pain management and pt may need further surgery after infection clears. Marissa with [facility] came on site to provide pt with what is needed for continued IV antibiotics outside of the hospital. Date Signed: 07/05/2018 04:43 PM Electronically Signed By:HITESH Blake
--- NOTE | 2018-07-05 19:32 | GDS ---
DISCHARGE DIAGNOSES: 1. Acute on chronic back pain. 2. Recent methicillin susceptible staphylococcus aureus postoperative infection. 3. Shuffling gait. 4. Recent spinal fusion, kyphoplasty. CONSULTATION: 1. Marshall Lugo, physician assistant fitness manager, neurosurgery. 2. Dr. Zayra Lugo, Infectious Disease. Briefly, this is a 62-year-old gentleman with recent spine surgery complicated by infection who presented to the emergency room with uncontrolled pain. He was seen and evaluated by Dr. Lugo and Neurosurgery. After an MRI was performed, there was not any type of infectious process noted. Today his pain is well managed. He is very motivated to get off his narcotics. He will be discharged home and follow up with Dr. Lugo and Neurosurgery in the outpatient setting. HOSPITAL COURSE: 1. Acute on chronic back pain. His MRI report shows inflammation but did not show infection. The patient said his pain is much improved. 2. MSSA postoperative infection. Continue cefazolin. 3. Shuffling gait. He has had 2 episodes of this during the night prior to his admission. He will follow up with Neurosurgery. 4. Recent spinal fusion kyphoplasty. The patient denies any bowel or bladder incontinence or leg weakness. DISCHARGE CONDITION: Stable. Blood pressure is 118/81, heart rate is 95, respiratory rate is 17, O2 sats on room air 94%, temperature 36.7 Celsius. MEDICATIONS AT DISCHARGE: Please see the EMR. DISCHARGE INSTRUCTIONS: 1. For home care to continue the infusions. 2. Follow up with Dr. Ott. 3. To wean off his narcotics slowly. 4. To follow up with Dr. Lugo in the outpatient setting. 5. If he develops fever, chills, worsening back pain, to return to the ER. /[id number]/MODL MTDD
--- NOTE | 2018-07-06 11:09 | ASDISCHSUM ---
Discharge Information Plan Status:Home with Home Health Medically Cleared to Leave: Discharge Date:07/05/2018 04:43 PM D/C Disposition:Home Health Service ADT D/C Disposition:Home Health Service Projected Discharge Date:07/05/2018 11:00 AM Transportation at D/C:Family Discharge Delay Reason: Follow-Up Date:07/05/2018 11:00 AM Discharge Slot: Final Diagnosis: Placement Information Referral Type:*Home Health Care Services Referral ID:[id number] Provider Name:[facility] Care Address 1:[address] Address 2: City:[place] Selection Factors: State:[place] Referral Type:Home Infusion Referral ID:[id number] Provider Name:[facility] Address 1:[address] Address 2: City:[place] Selection Factors: State:[place] Patient Contact Information Contact Name:ALEXYS Relationship: Address:[address] Work Phone: City:[place] Alternate Phone: State/Zip Code:[place] [address] Email: Financial Information Financial Class:[employer] Primary Plan Desc:[employer] Primary Plan Number:[id number] Secondary Plan Desc: Secondary Plan Number: Assessment Information LACE LACE Length of stay for Answers: 2 days current admission Acuity / Level of Answers: Yes Care: Did the patient have an inpatient admission? Comorbidities - select Answers: Opioid dependence all that apply / Chronic pain # of Emergency department Answers: 1-2 visits in the last 6 months Score: 10 Date Signed: 07/05/2018 04:35 PM Electronically Signed By:HITESH Blake [facility] CM Progress Note CM Note CM Note Notes: Pt has had recent spinal fusion May, and has been at [facility] recently. 06/17/18 pt d/c to [facility] inpatient rehab, from inpatient rehab pt went to [facility]. Lupe at [facility] reports pt demanded to leave last week, while it was not an AMA [facility] did not recommend he leave. Pt pain best controlled with Oxycontin CR, which his insurance does not cover. Pt considering paying for the medication himself. Pt also does not feel pt should be on opiates due to a prior drug addiction and pt says his wifes brother has dealt with opiate addiction so this experience is impacting her idea of what pt should have. may be holding some of pt medication from him. Pt did not want this CM to call his , did not think it would be beneficial. Pt open with [facility] and eri for IV antibiotics. [facility] will need to deliver IV antibiotics at d/c. Pt does not have worsening infection, pain is controlled here and pt likely d/c tomorrow. Pt declined list for private pay caregivers. D/c plan of care: Home with continued services of [facility] and [facility] for IV antibiotics Date Signed: 07/04/2018 03:00 PM Electronically Signed By:HITESH Blake [facility] CM Progress Note CM Note CM Note Notes: Pt medically stable for d/c home with continued services for [facility] and [facility]. New orders sent to [facility] and [facility] to obtain via [employer]. Neurosurgery consulted, they are working w pt on pain management and pt may need further surgery after infection clears. Marissa Mi came on site to provide pt with what is needed for continued IV antibiotics outside of the hospital. Date Signed: 07/05/2018 04:43 PM Electronically Signed By:HITESH Blake Intervention Information
== END 2018-07-05 16:43 | disposition home health service (06) ==
LOC: EDUNIT# → F3N 07-04 01:13
PROVIDERS: ADMIT Student in an Organized Health Care Education/Training Program; ATTEND Student in an Organized Health Care Education/Training Program
DX: M54.5 Low back pain (principal); G89.29 Other chronic pain; T81.49XA Infection following a procedure, other surgical site, initial encounter; A49.01 Methicillin susceptible Staphylococcus aureus infection, unspecified site; Z87.891 Personal history of nicotine dependence
CPT/HCPCS: 72100; 72158; 96361; 96372; 96374; 96375; 97116; 97161; 99285; G0378; A9585; J0690; J1650; J2060